=== PATIENT | male | born 1930 | race Caucasian/White ===

== ENCOUNTER 2017-06-08 19:52 | Inpatient (IN) ==
[2017-06-08] MEDS ORDERED: ACETAMINOPHEN 325 MG TABLET PO ONE (20:34)
--- NOTE | 2017-06-08 20:34 | Emergency Department Note ---
Fever HPI - General Chief Complaint: Fever Stated Complaint: weakness, fever Time Seen by Provider: 06/08/17 20:11 Source: patient, EMS Mode of arrival: EMS - History of Present Illness HPI Narrative: Patient presents from assisted living where he lives somewhat independently. Increasing weakness and shortness of breath over the last 24 hours with malaise low-grade fever headache sore throat and myalgias. No clear sick contacts. Generally in good health maintains without oxygen. Summary health history is congestive heart failure, has maintained on a diuretic for the last 11 months without hospitalization. Daughter at the bedside providing history - Related Data Home Medications Medication Instructions Recorded Confirmed multivitamin capsule 1 tab-cap PO QDAY cap 11/16/14 05/28/17 carvedilol 6.25 mg tablet See Label Instructions .ROUTE 01/11/16 05/28/17 .COMPLEX cholecalciferol (vitamin D3) 2,000 2,000 unit PO QDAY tab 07/25/16 05/28/17 unit tablet lactobacillus combination no.9 4 4,000 mmu cells PO QDAY 05/05/17 05/28/17 billion cell capsule loperamide 2 mg capsule 2 mg PO Q2-4H PRN 05/05/17 05/28/17 magnesium hydroxide 400 mg/5 mL 600 mg PO BID PRN 05/05/17 05/28/17 oral suspension spironolactone 25 mg tablet 12.5 mg PO QAM tab 05/05/17 05/28/17 Previous Rx's Medication Instructions Recorded Acetaminophen [Tylenol] 650 mg PO Q4-6HP PRN #0 tab 12/30/15 Docusate Sodium [Colace] 100 mg PO BID cap 12/30/15 fexofenadine 180 mg tablet 180 mg PO QDAY 30 Days #30 tab 12/31/15 leg brace See Dose Instructions .ROUTE 06/19/16 .MEDSUPPLY #2 each wheelchair See Dose Instructions .ROUTE 06/19/16 .MEDSUPPLY #1 each Furosemide [Lasix] 40 mg PO BID #28 tab 07/10/16 warfarin 5 mg tablet See Label Instructions .ROUTE 09/03/16 .COMPLEX #1 tab losartan 100 mg tablet 100 mg PO QDAY 30 Days #30 tab 11/03/16 gabapentin 300 mg capsule 7 cap PO QDAY #210 cap 01/06/17 omeprazole 20 mg capsule,delayed 20 mg PO QAM #30 cap 01/15/17 release potassium chloride ER 10 mEq 20 meq PO QDAY #60 tab 03/10/17 tablet,extended release allopurinol 100 mg tablet 200 mg PO QDAY #60 tab MDD 200mg 05/07/17 finasteride 5 mg tablet 5 mg PO QDAY #90 tab 06/04/17 Allergies Allergy/AdvReac Type Severity Reaction Status Date / Time prednisone Allergy Unknown Unknown Verified 06/08/17 20:00 tramadol AdvReac Intermediate Hallucinati Verified 06/08/17 20:00 ng trazodone AdvReac Intermediate Hallucinati Verified 06/08/17 20:00 ng codeine AdvReac Mild Nausea Verified 06/08/17 20:00 loratadine [From Claritin] AdvReac Mild Hallucinati Verified 06/08/17 20:00 ng quinidine gluconate Allergy Unknown Unknown Uncoded 05/12/17 16:06 Review of Systems All systems ED: reviewed and negative except as stated. Fever PMH - Past Medical History Attestation: Yes: The following information was validated with the patient. Medical history: Reports: arthritis, atrial fibrillation, CHF, coronary artery disease, GERD, hypertension, valvular heart disease, other (Bladder cancer, Bursitis, cardiomyopathy, retinal hemorrhage, peripheral neuropathy, gout, macular degeneration, bph, vitiligo) Surgical history ED: Reports: non-contributory Family history: Reports: non-contributory - Social History smoking status: Former smoker Alcohol use: Reports: None Drug use: Reports: none Physical Exam Limitations: altered mental status, other (Weak) General appearance: in no apparent distress, malaise, other (Very advanced age) Head: atraumatic, normocephalic Eye: Present: normal appearance ENT: normal exam, mucous membranes moist Neck: Present: normal inspection Chest: Present: normal inspection, symmetric chest wall rise Respiratory: Present: other (Course breath sounds). Absent: respiratory distress Cardiovascular: Present: regular rate, normal rhythm Abdominal: Present: soft. Absent: tenderness Extremities: Present: normal inspection. Absent: pedal edema Back: Present: normal inspection Neurological: Present: other (Fatigued appearing) Psychiatric: Present: normal affect Skin: Present: warm, other (Flushed) Course Vital Signs Temperature 100.4 F H 06/08/17 19:53 Pulse Rate 112 H 06/08/17 19:53 Respiratory Rate 16 06/08/17 19:53 Blood Pressure 120/71 06/08/17 19:53 Pulse Oximetry (%) 89 L 06/08/17 19:53 Temperature 100.4 F H 06/08/17 19:53 Pulse Rate 82 06/08/17 21:33 Respiratory Rate 16 06/08/17 19:53 Blood Pressure 99/59 06/08/17 21:31 Pulse Oximetry (%) 97 06/08/17 21:33 Fever - Lab Data Lab results reviewed: Yes I reviewed the patient's lab results. Result diagrams: 06/08/17 20:38 06/08/17 20:38 Lab Results 06/08/17 06/08/17 06/08/17 Range/Units 20:27 20:38 20:38 WBC 12.4 H (4.5-11.0) K/mcL RBC 3.78 L (4.50-5.90) M/mcL Hgb 12.4 L (13.5-16.5) g/dL Hct 37.9 L (41.0-55.0) % MCV 100.2 H (80.0-100.0) fL MCH 32.7 (26.0-34.0) pg MCHC 32.7 (31.0-36.0) g/dL RDW 18.0 H (11.5-14.5) % Plt Count 173 (140-440) K/mcL MPV 9.7 (7.4-10.4) fL Gran % 85.7 H (38.0-78.0) % Lymph % (Auto) 5.2 L (15.5-49.0) % [place] % (Auto) 5.5 (1.0-12.0) % Eos % (Auto) 3.6 (0.0-7.0) % Baso % (Auto) 0 (0.0-2.0) % Gran # 10.7 H (1.8-8.0) K/mcL Lymph # (Auto) 0.7 L (1.5-4.8) K/mcL [place] # (Auto) 0.7 (0.1-0.9) K/mcL Eos # (Auto) 0.4 (0.0-0.7) K/mcL Baso # (Auto) 0 (0.0-0.3) K/mcL VBG Lactic Acid 1.0 (0.5-2.2) mmol/L Sodium 138 (133-145) mmol/L Potassium 4.5 (3.3-5.1) mmol/L Chloride 99 (96-108) mmol/L Carbon Dioxide 26 (22-30) mmol/L Anion Gap 13.0 (8-16) BUN 43 H (8-23) mg/dl Creatinine 1.4 H (0.7-1.2) mg/dl GFR Calculation 45 Glucose 129 H (70-105) mg/dL Calcium 9.8 (8.6-10.4) mg/dl Total Bilirubin 1.2 H (0.0-1.0) mg/dL AST 19 (0-37) U/l ALT 17 (0-40) U/l Alkaline Phosphatase 98 (39-117) U/L Total Protein 7.2 (5.9-8.4) gm/dL Albumin 4.0 (3.2-5.2) gm/dL Globulin 3.2 (2.2-3.7) gm/dL Albumin/Globulin Ratio 1.3 (1.0-2.3) Procalcitonin (<0.10) ng/mL 06/08/17 Range/Units 20:38 WBC (4.5-11.0) K/mcL RBC (4.50-5.90) M/mcL Hgb (13.5-16.5) g/dL Hct (41.0-55.0) % MCV (80.0-100.0) fL MCH (26.0-34.0) pg MCHC (31.0-36.0) g/dL RDW (11.5-14.5) % Plt Count (140-440) K/mcL MPV (7.4-10.4) fL Gran % (38.0-78.0) % Lymph % (Auto) (15.5-49.0) % [place] % (Auto) (1.0-12.0) % Eos % (Auto) (0.0-7.0) % Baso % (Auto) (0.0-2.0) % Gran # (1.8-8.0) K/mcL Lymph # (Auto) (1.5-4.8) K/mcL [place] # (Auto) (0.1-0.9) K/mcL Eos # (Auto) (0.0-0.7) K/mcL Baso # (Auto) (0.0-0.3) K/mcL VBG Lactic Acid (0.5-2.2) mmol/L Sodium (133-145) mmol/L Potassium (3.3-5.1) mmol/L Chloride (96-108) mmol/L Carbon Dioxide (22-30) mmol/L Anion Gap (8-16) BUN (8-23) mg/dl Creatinine (0.7-1.2) mg/dl GFR Calculation Glucose (70-105) mg/dL Calcium (8.6-10.4) mg/dl Total Bilirubin (0.0-1.0) mg/dL AST (0-37) U/l ALT (0-40) U/l Alkaline Phosphatase (39-117) U/L Total Protein (5.9-8.4) gm/dL Albumin (3.2-5.2) gm/dL Globulin (2.2-3.7) gm/dL Albumin/Globulin Ratio (1.0-2.3) Procalcitonin 0.20 (<0.10) ng/mL - Radiology Data Radiology results reviewed: Yes I reviewed the patient's radiology results. Blunting left lateral cardiac silhouette Disposition Pt seen by LAP CUTTER/PA only: No Clinical Impression: Hypoxia Left lower lobe pneumonia Qualifiers: Aspiration pneumonia type: unspecified Summary: Immediate interventions, DNR status Admit to Dr. Gonazlez Disposition: Xfer As Inpt ([facility]) Condition: Fair
[2017-06-08 21:18] LABS: Basophils # (Auto) 0 K/mcL (0.0-0.3); Basophils % (Auto) 0 % (0.0-2.0); Eosinophils # (Auto) 0.4 K/mcL (0.0-0.7); Eosinophils % (Auto) 3.6 % (0.0-7.0); Granulocytes % (Auto) 85.7 % (38.0-78.0); Lymphocytes # (Auto) 0.7 K/mcL (1.5-4.8); Lymphocytes % (Auto) 5.2 % (15.5-49.0); Mean Cell Volume 100.2 fL (80.0-100.0); Mean Corpuscular HGB Conc 32.7 g/dL (31.0-36.0); Mean Corpuscular Hemoglobin 32.7 pg (26.0-34.0); Monocytes # (Auto) 0.7 K/mcL (0.1-0.9); Monocytes % (Auto) 5.5 % (1.0-12.0); Platelet Count 173 K/mcL (140-440); RBC 3.78 M/mcL (4.50-5.90)
[2017-06-08 21:36] LABS: ALT/SGPT 17 U/l (0-40); Albumin/Globulin Ratio 1.3 (1.0-2.3); Alkaline Phosphatase 98 U/L (39-117); Blood Urea Nitrogen 43 mg/dl (8-23)
[2017-06-08] MEDS ORDERED: cefTRIAXone 1 GM VIAL IV ONE (21:57)
[2017-06-08] MEDS ORDERED: AZITHROMYCIN 250 MG TABLET PO ONE (21:57)
[2017-06-08] MEDS ORDERED: AZITHROMYCIN 500 MG in DEXTROSE 5% IN WATER 250 ML IV ONE (22:00)
--- NOTE | 2017-06-08 23:11 | Internal Med History&Physical ---
Medical - H&P: HPI Patient information: Note initiated : 06/08/17 at 10:59 pm Service Date, if different from initiated Date: [] Patient: Silvio Wallace 86 y/o M admitted on for weakness, fever. Chief Complaint: [] History of present illness: Mr. Wallace is a 86 year old Mal;e with multiple medical issues, living in [facility] facility, presents to the er with complaints of not feeling well , weakness, fever, chills cough, runny nose x 1 day. The daugther was at the bedside, the patient was visited by the daugther, yesterday and she felt that he was doing ok, and had no symptoms. Today she noticed that he has not been feeling well, there is increased weakness, the patient also complains of runny nose and cough, with expectoration, (unable to give me more details) poor history provider. The patient also has increased difficulity in getting out of bed. His daugther therefore brought him to the ER for further evaluation. In the ER the patient was noted to be febrile. His Chest x ray showed possible left basilar pna, he had increased oxygen needs, his wbc was elevated at 12K, The patient was therefore admitted to the hospital for further management. All systems: reviewed and no additional remarkable complaints except as stated ( as pe HPI) Medical - H&P: PMH Medical history: Medical History (Last Reviewed 05/12/17 @ 16:08 by Bárbara Carlton RN) Bursitis (Acute) Degenerative joint disease (Acute) Upper respiratory infection (Acute) Syncope (Acute) Fever of unknown origin (Acute) Fever (Acute) Severe sepsis with acute organ dysfunction (Acute) Sprain of right hip (Acute) Pneumonia (Acute) Altered mental state (Acute) Gastroenteritis and colitis, viral (Acute) Elevated liver enzymes (Acute) Community acquired pneumonia (Acute) Aspiration pneumonitis (Acute) Elbow contusion (Acute) CHF exacerbation (Acute) Closed right hip fracture (Acute) Fever of unknown origin (Acute) Left knee pain (Acute) Cardiomyopathy (Chronic) Encounter for Health Maintenance Examination in Adult (Chronic) Hypercalcemia (Chronic) Vertigo (Acute) Bladder trabeculation (Acute) Retinal hemorrhage (Acute) Pleural effusion (Acute) Peripheral neuropathy (Chronic) Obstructive uropathy (Chronic) Mitral valve regurgitation (Chronic) Macular degeneration (Chronic) Low back pain (Chronic) Joint effusion of lower extremity (Acute) Ischemic cardiomyopathy (Chronic) Hypertension (Chronic) Head injury (Acute) Gout (Chronic) Fall (Acute) Eye trauma (Acute) Exudative senile macular degeneration of retina (Acute) Erectile dysfunction (Chronic 05/05/14) Epistaxis (Acute) Dysphagia (Acute) Situational depression (Chronic) DJD (degenerative joint disease) (Acute) Degenerative arthritis (Chronic) CHF (congestive heart failure) (Chronic) History of colonic polyps (Acute) Chondrocalcinosis (Acute) Cardiomegaly (Acute) Bloating (Acute) Blindness, legal (Chronic) Bladder tumor (Chronic) Atrial fibrillation (Chronic) Surgical history: Past Surgical History (Last Reviewed 05/12/17 @ 16:08 by Bárbara Carlton RN) S/P TURP (Acute) H/O cystoscopy (Acute) H/O colonoscopy (Acute 07/23/09) History of appendectomy (Acute) Pertinent family history: Family History (Last Reviewed 05/12/17 @ 16:08 by Bárbara Carlton RN) Mother Malignant neoplasm of brain Malignant Neoplasm of Thyroid Gland Unknown Diabetes mellitus Father Cardiac disease Medical - H&P: Meds Home Medications Medication Instructions Recorded Confirmed Type multivitamin capsule 1 tab-cap PO QDAY cap 11/16/14 05/28/17 History Acetaminophen [Tylenol] 650 mg PO Q4-6HP PRN #0 tab 12/30/15 05/28/17 Rx Docusate Sodium [Colace] 100 mg PO BID cap 12/30/15 05/28/17 Rx fexofenadine 180 mg tablet 180 mg PO QDAY 30 Days #30 tab 12/31/15 05/28/17 Rx carvedilol 6.25 mg tablet See Label Instructions .ROUTE 01/11/16 05/28/17 History .COMPLEX leg brace See Dose Instructions .ROUTE 06/19/16 05/28/17 Rx .MEDSUPPLY #2 each wheelchair See Dose Instructions .ROUTE 06/19/16 05/28/17 Rx .MEDSUPPLY #1 each Furosemide [Lasix] 40 mg PO BID #28 tab 07/10/16 05/28/17 Rx cholecalciferol (vitamin D3) 2,000 2,000 unit PO QDAY tab 07/25/16 05/28/17 History unit tablet warfarin 5 mg tablet See Label Instructions .ROUTE 09/03/16 05/28/17 Rx .COMPLEX #1 tab losartan 100 mg tablet 100 mg PO QDAY 30 Days #30 tab 11/03/16 05/28/17 Rx gabapentin 300 mg capsule 7 cap PO QDAY #210 cap 01/06/17 05/28/17 Rx omeprazole 20 mg capsule,delayed 20 mg PO QAM #30 cap 01/15/17 05/28/17 Rx release potassium chloride ER 10 mEq 20 meq PO QDAY #60 tab 03/10/17 05/28/17 Rx tablet,extended release lactobacillus combination no.9 4 4,000 mmu cells PO QDAY 05/05/17 05/28/17 History billion cell capsule loperamide 2 mg capsule 2 mg PO Q2-4H PRN 05/05/17 05/28/17 History magnesium hydroxide 400 mg/5 mL 600 mg PO BID PRN 05/05/17 05/28/17 History oral suspension spironolactone 25 mg tablet 12.5 mg PO QAM tab 05/05/17 05/28/17 History allopurinol 100 mg tablet 200 mg PO QDAY #60 tab MDD 200mg 05/07/17 05/28/17 Rx finasteride 5 mg tablet 5 mg PO QDAY #90 tab 06/04/17 Rx Allergies Allergy/AdvReac Type Severity Reaction Status Date / Time prednisone Allergy Unknown Unknown Verified 06/08/17 20:00 tramadol AdvReac Intermediate Hallucinati Verified 06/08/17 20:00 ng trazodone AdvReac Intermediate Hallucinati Verified 06/08/17 20:00 ng codeine AdvReac Mild Nausea Verified 06/08/17 20:00 loratadine [From Claritin] AdvReac Mild Hallucinati Verified 06/08/17 20:00 ng quinidine gluconate Allergy Unknown Unknown Uncoded 05/12/17 16:06 Medical - H&P: Exam - Constitutional Vitals: Temp Pulse Resp BP Pulse Ox 100.4 F H 82 16 99/59 97 06/08/17 19:53 06/08/17 21:33 06/08/17 19:53 06/08/17 21:31 06/08/17 21:33 Exam: GENERAL: The patient is a well-developed, well-nourished in no apparent distress. Is alert and oriented x3. VITAL SIGNS: Reviewed and as noted elsewhere. HEENT: Head is normocephalic and atraumatic. Extraocular muscles are intact. Pupils are equal, round, and reactive to light. Nares appeared normal. Mouth appears any without lesions. Mucous membranes are dry. NECK: Normal to inspection, Supple, No lymphadenopathy or thyromegaly. LUNGS: Air entry equal on both sides, no wheezing, crackles or rhonchi noted. No accessory muscles of respiration HEART: Regular rate irregular rhythm S1 and S2 heard, no Gallop, S3 or Rub Noted , No Gross murmur heard. ABDOMEN: Soft, nontender, and nondistended. Positive bowel sounds. No hepatosplenomegaly was noted. EXTREMITIES: No cyanosis, clubbing, rash, lesions or edema. NEUROLOGIC: Cranial nerves II through XII are grossly intact. Motor and Sensory System Grossly Intact PSYCHIATRIC: Normal affect, Normal Mood. Appropriate Behavior. SKIN: No ulceration or wounds noted, No jaundice, No rash noted. Medical - H&P: Reslt - Labs CBC & Chem 7: 06/08/17 20:38 06/08/17 20:38 Labs: Short CBC 06/08/17 Range/Units 20:38 WBC 12.4 H (4.5-11.0) K/mcL Hgb 12.4 L (13.5-16.5) g/dL Hct 37.9 L (41.0-55.0) % Plt Count 173 (140-440) K/mcL BMP 06/08/17 20:38 Sodium 138 Potassium 4.5 Chloride 99 Carbon Dioxide 26 BUN 43 H Creatinine 1.4 H Glucose 129 H Calcium 9.8 Liver Function 06/08/17 Range/Units 20:38 Total Bilirubin 1.2 H (0.0-1.0) mg/dL AST 19 (0-37) U/l ALT 17 (0-40) U/l Alkaline Phosphatase 98 (39-117) U/L Albumin 4.0 (3.2-5.2) gm/dL Medical - H&P: A/P - Narrative A/P Narrative: A/P Sepsis Pneumonia CHF Afib on anticoagulation CKD DJD Plan Admit to tele IV antibiotics for now rocephin and zithromax, ackowledge that flu test is neg, but given high prevelance, start on tamiflu, Resume home meds when verifed hold IVF for now, Pt not in overt fluid overload clinically, X ray does show pulm congestion. Plan to monitor closely tanika labs Pain management for DJD DVT on coumadin, INR was therapeutic at last [facility], check again. if low start on hep sq Full code for now High risk for fall High risk for delirium. Social History - Social History housing: assisted living facility marital status: long term: Yes (Resides on the assisted living side [facility]) occupational status: retired - Tobacco smoking status: Former smoker - Alcohol alcohol intake frequency: former alcohol drinker - Substance use substance use type: does not use
[2017-06-08] MEDS ORDERED: OSELTAMIVIR PHOSPHATE 75 MG CAPSULE PO ONE (23:33)
[2017-06-08] MEDS ORDERED: AZITHROMYCIN 500 MG VIAL IV ONE (23:34)
[2017-06-09] MEDS ORDERED: cefTRIAXone 1 GM in DEXTROSE 5% IN WATER 50 ML IV SCH
[2017-06-09] MEDS ORDERED: ONDANSETRON 4 MG/2 ML VIAL IV PRN
[2017-06-09] MEDS ORDERED: MAGNESIUM HYDROXIDE 30 ML ORAL.SUSP PO PRN
[2017-06-09] MEDS ORDERED: NALOXONE HCL 0.4 MG/ML VIAL IV PRN
[2017-06-09] MEDS ORDERED: HYDROcodone/APAP 5/325MG TABLET PO PRN
[2017-06-09] MEDS: OSELTAMIVIR PHOSPHATE 75 MG CAPSULE PO SCH ×3 (00:25→20:36)
[2017-06-09] MEDS ORDERED: cefTRIAXone 1 GM VIAL ONE (01:36)
[2017-06-09] MEDS: ACETAMINOPHEN 325 MG TABLET PO PRN ×2 (04:26→20:37)
--- NOTE | 2017-06-09 07:13 | XRay Report ---
CLINICAL INFORMATION: Fever and cough COMPARISON: 07/25/2016 FINDINGS: Marked cardiomegaly is unchanged. Mediastinum is unremarkable. There is slight redistribution of upper lobe pulmonary vasculature - unchanged. No edema. There is a possible developing left basilar infiltrate. Minor right basilar scarring noted. Chronic bilateral rotator cuff impingement changes again noted IMPRESSION: Marked cardiomegaly stable. Unchanged pulmonary vascular redistribution suggesting chronic pulmonary venous hypertension. Possible developing left basilar infiltrate. Suggest two view upright chest x-ray in one to two days there is clinical support for pneumonia Interpreted and Authenticated by: Bar Luna 06/09/17
[2017-06-09 07:19] LABS: Basophils # (Auto) 0 K/mcL (0.0-0.3); Basophils % (Auto) 0 % (0.0-2.0); Eosinophils # (Auto) 0.3 K/mcL (0.0-0.7); Eosinophils % (Auto) 2.8 % (0.0-7.0); Granulocytes % (Auto) 76.6 % (38.0-78.0); Lymphocytes # (Auto) 0.8 K/mcL (1.5-4.8); Lymphocytes % (Auto) 7.6 % (15.5-49.0); Mean Cell Volume 100.1 fL (80.0-100.0); Monocytes # (Auto) 1.4 K/mcL (0.1-0.9); Platelet Count 159 K/mcL (140-440); RBC 3.53 M/mcL (4.50-5.90); Red Cell Distribution Width 17.6 % (11.5-14.5)
[2017-06-09 08:22] LABS: ALT/SGPT 14 U/l (0-40); Albumin 3.4 gm/dL (3.2-5.2); Albumin/Globulin Ratio 1.1 (1.0-2.3); Alkaline Phosphatase 86 U/L (39-117); Bilirubin,Direct 0.3 mg/dL (0.0-0.3); Blood Urea Nitrogen 42 mg/dl (8-23); Gamma Glutamyl Transpeptidase 70 U/L (8-61); Uric Acid 5.6 mg/dL (2.5-8.0)
--- NOTE | 2017-06-09 11:12 | Internal Med Progress Note ---
Medical - PN: Subj Patient information: Note initiated : 06/09/17 at 11:09 am Service Date, if different from initiated Date: [] Patient: Silvio Wallace 86 y/o M admitted on 06/08/17 for weakness, fever. Chief Complaint: [] Interval history: Mr. Wallace is a 86 year old [place];e with multiple medical issues, living in the [facility] facility, presents to the er with complaints of not feeling well , weakness, fever, chills cough, runny nose x 1 day. The daugther was at the bedside, the patient was visited by the daugther, yesterday and she felt that he was doing ok, and had no symptoms. Today she noticed that he has not been feeling well, there is increased weakness, the patient also complains of runny nose and cough, with expectoration, (unable to give me more details) poor history provider. The patient also has increased difficulity in getting out of bed. His daugther therefore brought him to the ER for further evaluation. In the ER the patient was noted to be febrile. His Chest x ray showed possible left basilar pna, he had increased oxygen needs, his wbc was elevated at 12K, The patient was therefore admitted to the hospital for further management. Jun 09 Patient seen examined no acute overnight events, labs improved, slept ok feels better. Pertinent ROS: Denies headache, dizziness Denies chest pain, palpitations Denies cough or shortness of breath Denies abdominal pain, nausea or vomiting. - Constitutional Vitals: Vital Signs Temp Pulse Resp BP Pulse Ox 100.0 F H 79 18 106/65 92 06/09/17 08:00 06/09/17 08:00 06/09/17 08:00 06/09/17 08:00 06/09/17 08:00 Period Temp Pulse Resp BP Sys/Nichole Pulse Ox Last 24 Hr 94.4 F-100.4 F 39-112 16-18 89-138/42-83 89-97 Intake and Output 06/08/17 06/09/17 06/09/17 21:59 05:59 13:59 Intake Total 430 / 430 Output Total Balance 429 / 429 Weight 204 lb 199 lb 4 oz Intake & Output: Intake & Output 06/08/17 06/09/17 06/09/17 21:59 05:59 13:59 Intake Total 430 / 430 Output Total Balance 429 / 429 Weight 204 lb 199 lb 4 oz Intake: IV 250 / 250 Zithromax 500 mg In Dextrose 5% 250 / 250 in Water 250 ml @ 250 mls/hr IV ONCE ONE Rx#:[id number] Oral 180 / 180 Output: # of times incontinent of urine Other: # Voids 0 # Bowel Movements 0 Exam: Constitutional; Afebrile, cooperative, alert, not in distress. Eyes- No icterus, , No periorbital swelling Ears- Ext ear normal, hearing hard to conversation. Neck- Midline trachea, supple Respiratory system: Air Entry equal on both sides, No crackles or wheezing, no rhonchi. CVS- Rate rhythm regular, S1,S2 heard, no gallop, no rub. Abdomen- Soft nontender abdomen, no organomegaly, no tenderness, no guarding or rigidity, TELEVISION ANNOUNCER- AOOx3, moving all extremities, no gross focal deficit noted. Medical - PN: Obj Da - Labs CBC & Chem 7: 06/09/17 06:19 06/09/17 06:19 Labs: Abnormal Lab Results 06/09/17 06/09/17 06/09/17 06:19 06:19 06:19 WBC RBC 3.53 L Hgb 11.6 L Hct 35.3 L MCV 100.1 H RDW 17.6 H Gran % Lymph % (Auto) 7.6 L [place] % (Auto) 13.0 H Gran # 8.1 H Lymph # (Auto) 0.8 L [place] # (Auto) 1.4 H PT 24.5 H INR 2.1 H BUN 42 H Creatinine 1.4 H Glucose Total Bilirubin 1.1 H GGT 70 H NT-Pro-B Natriuret Pep 06/08/17 06/08/17 06/08/17 20:38 20:38 20:27 WBC 12.4 H RBC 3.78 L Hgb 12.4 L Hct 37.9 L MCV 100.2 H RDW 18.0 H Gran % 85.7 H Lymph % (Auto) 5.2 L [place] % (Auto) Gran # 10.7 H Lymph # (Auto) 0.7 L [place] # (Auto) PT INR BUN 43 H Creatinine 1.4 H Glucose 129 H Total Bilirubin 1.2 H GGT NT-Pro-B Natriuret Pep 3458.0 H Meds: Medications Acetaminophen (Tylenol) 650 mg PO Q6HP PRN PRN Reason: PAIN/FEVER > 101 Last Admin: 06/09/17 04:26 Dose: 650 mg Ceftriaxone Sodium (Rocephin) 1 gm IV DAILY [facility] Azithromycin 250 mg/ Dextrose 250 mls @ 250 mls/hr IV DAILY [facility] Stop: 06/12/17 09:59 Magnesium Hydroxide (Milk Of Magnesia) 30 ml PO DAILYP PRN PRN Reason: Constipation Naloxone HCl (Narcan) 0.1 mg IV Q2MIN PRN PRN Reason: Opiate Reversal Ondansetron HCl (Zofran) 4 mg IV Q4HP PRN PRN Reason: Nausea And Vomiting Oseltamivir Phosphate (Tamiflu) 75 mg PO BID [facility] Stop: 06/13/17 09:01 Last Admin: 06/09/17 09:10 Dose: 75 mg Warfarin Sodium (Coumadin Per Pharmacy) 1 order PO UD [facility] Medical - PN: A/P - Time Spent With Patient Total time spent is greater than 50% in coordination of care (as documented) at patient's floor/unit and/or counseling patient: - Narrative A/P Narrative: A/P Sepsis: wbc improved, bp stable, lactate normal, pt clinically improving Pneumonia: On antibiotics, rocephin and zithromax, anticipate switch to oral at discharge, also on tamiflu CHF: h/o chf, not volume overloaded at this time, judicious use of fluids. Afib on anticoagulation: INR 2.1, at goal, HR stable. CKD: Creat stable. DJD: Prn pain meds, no complaints DVT on coumadin High risk of falls, on OT/PT?St rehab High risk for delirum Medical - PN: Qual - VTE Deep Vein Thrombosis/Pulmonary Embolism Present on Admission: No
[2017-06-09] MEDS: AZITHROMYCIN 250 MG in DEXTROSE 5% IN WATER 250 ML IV SCH (13:27)
[2017-06-09] MEDS: cefTRIAXone 1 GM VIAL IV SCH (16:54)
[2017-06-10] MEDS: ACETAMINOPHEN 325 MG TABLET PO PRN ×2 (04:49→10:44)
[2017-06-10 05:52] LABS: Basophils # (Auto) 0 K/mcL (0.0-0.3); Basophils % (Auto) 0.2 % (0.0-2.0); Eosinophils # (Auto) 0.2 K/mcL (0.0-0.7); Eosinophils % (Auto) 1.9 % (0.0-7.0); Granulocytes % (Auto) 77.6 % (38.0-78.0); Lymphocytes % (Auto) 9.6 % (15.5-49.0); Mean Cell Volume 100.8 fL (80.0-100.0); Mean Corpuscular HGB Conc 32.9 g/dL (31.0-36.0); Mean Corpuscular Hemoglobin 33.2 pg (26.0-34.0); Monocytes # (Auto) 1.1 K/mcL (0.1-0.9); Monocytes % (Auto) 10.7 % (1.0-12.0); Platelet Count 169 K/mcL (140-440); RBC 3.81 M/mcL (4.50-5.90); Red Cell Distribution Width 17.7 % (11.5-14.5)
[2017-06-10 06:06] LABS: ALT/SGPT 16 U/l (0-40); Albumin 3.7 gm/dL (3.2-5.2); Albumin/Globulin Ratio 1.1 (1.0-2.3); Alkaline Phosphatase 90 U/L (39-117); Bilirubin,Direct 0.4 mg/dL (0.0-0.3); Blood Urea Nitrogen 32 mg/dl (8-23); Gamma Glutamyl Transpeptidase 74 U/L (8-61); Uric Acid 5.6 mg/dL (2.5-8.0)
[2017-06-10] MEDS: OSELTAMIVIR PHOSPHATE 75 MG CAPSULE PO SCH (09:02)
[2017-06-10] MEDS: cefTRIAXone 1 GM VIAL IV SCH (09:02)
[2017-06-10] MEDS: AZITHROMYCIN 250 MG in DEXTROSE 5% IN WATER 250 ML IV SCH (09:03)
--- NOTE | 2017-06-10 10:05 | Discharge Summary ---
Medical - DS: Prov Patient information: Note initiated : 06/10/17 at 9:58 am Service Date, if different from initiated Date: [] Patient: Silvio Wallace 86 y/o M admitted on 06/08/17 for Weakness, Fever/ Pneumonia, Sepsis. Chief Complaint: [] Date of admission: 06/08/17 23:40 Discharge date: 06/10/17 Admitting clinician: Andres Gonzalez Consults: 06/08/17 21:59 Consult to Physician [CONS] Stat Comment: Consulting Provider: Andres Gonzalez Reason For Exam: Physician to Consult Discharging clinician: Andres Gonzalez Medical - DS: Meds - Discharge Medications Prescriptions: Azithromycin [Zithromax] 250 mg PO DAILY #3 tab Cefuroxime [Ceftin] 500 mg PO Q12 #10 tab Oseltamivir Phosphate [Tamiflu] 75 mg PO BID #8 cap Active and Home Medications: Home Medications Docusate Sodium [Colace] 100 mg PO BID cap 12/30/15 [Rx Confirmed 06/09/17 Last Taken 06/08/17 18:00] fexofenadine 180 mg tablet 180 mg PO QDAY 30 Days #30 tab 12/31/15 [Rx Confirmed 06/09/17 Last Taken 06/08/17] carvedilol 6.25 mg tablet See Label Instructions PO BID 01/11/16 [History Confirmed 06/09/17 Last Taken 06/08/17 15:00 6.25] Furosemide [Lasix] 40 mg PO BID #28 tab 07/10/16 [Rx Confirmed 06/09/17 Last Taken 06/08/17 14:00] cholecalciferol (vitamin D3) 2,000 unit tablet 2,000 unit PO QDAY tab 07/25/16 [History Confirmed 06/09/17 Last Taken 06/08/17 07:00] losartan 100 mg tablet 100 mg PO QDAY 30 Days #30 tab 11/03/16 [Rx Confirmed 10/19 Last Taken 06/08/17] omeprazole 20 mg capsule,delayed release 20 mg PO QAM #30 cap 01/15/17 [Rx Confirmed 06/09/17 Last Taken 06/08/17] lactobacillus combination no.9 4 billion cell capsule 4,000 mmu cells PO QDAY [History Confirmed 06/09/17 Last Taken 06/08/17] loperamide 2 mg capsule 2 mg PO Q2-4H PRN MDD 8 05/05/17 [History Confirmed 10/19 Last Taken Unknown] magnesium hydroxide 400 mg/5 mL oral suspension 600 mg PO DAILYP PRN 05/05/17 [ History Confirmed 06/09/17 Last Taken Unknown] spironolactone 25 mg tablet 12.5 mg PO QAM tab 05/05/17 [History Confirmed 10/19 Last Taken 06/08/17 07:00] allopurinol 100 mg tablet 200 mg PO QDAY #60 tab MDD 200mg 05/07/17 [Rx Confirmed 06/09/17 Last Taken 06/08/17] finasteride 5 mg tablet 5 mg PO QDAY #90 tab 06/04/17 [Rx Confirmed 06/09/17 Last Taken 06/08/17] Acetaminophen [Tylenol] 2 tab PO Q4-6HP PRN 06/09/17 [History Confirmed Last Taken 06/07/17] Acetaminophen [Tylenol] 650 mg PO BID 06/09/17 [History Confirmed 06/09/17 Last Taken 06/08/17 18:00] Gabapentin [Neurontin] 2 - 3 cap PO TID 06/09/17 [History Confirmed 06/09/17 Last Taken 06/08/17 900mg] Lactobac No.41/Bifidobact No.7 [Probiotic-10 3 Billion Cell Cp] 1 cap PO QPM 10/19 [History Confirmed 06/09/17 Last Taken 06/08/17 1500] Leg Brace [Ankle Brace] 0 unit .ROUTE .MEDSUPPLY 06/09/17 [History Confirmed 10/19 Last Taken Unknown] Multivit-Min/FA/Lycopen/Lutein [Senior Tabs] 1 each PO DAILY 06/09/17 [History Confirmed 06/09/17 Last Taken Unknown] Potassium Chloride [K-Tab ER] 20 meq PO QAM 06/09/17 [History Confirmed Last Taken 06/08/17] Warfarin [Coumadin] 6 mg PO DAILY 06/09/17 [History Confirmed 06/09/17 Last Taken 06/05/17 14:00 6 mg] Warfarin [Coumadin] See Label Instructions PO DAILY 06/09/17 [History Confirmed 06/09/17 Last Taken 06/08/17 14:00 5 mg] Wheelchair 1 unit .ROUTE .MEDSUPPLY 06/09/17 [History Confirmed 06/09/17 Last Taken Unknown] Medical - DS: Hosp Hospital course: Mr. Wallace is a 86 year old [place] with multiple medical issues, living in the assisted living facility, presents to the er with complaints of not feeling well , weakness, fever, chills cough, runny nose x 1 day. The daughter was at the bedside, the patient was visited by the daughter, yesterday and she felt that he was doing ok, and had no symptoms. Today she noticed that he has not been feeling well, there is increased weakness, the patient also complains of runny nose and cough, with expectoration, (unable to give me more details) poor history provider. The patient also has increased difficulty in getting out of bed. In the ER the patient was noted to be febrile. His Chest x ray showed possible left basilar pna, he had increased oxygen needs, his wbc was elevated at 12K, The patient was therefore admitted to the hospital for further management. The patient was treated with Po tamifu, IV rocephin and zithromax for possible community acquired pneumonia, cxr showed possible left basilar pna, the patient responded to treatment very well, his leucocytosis improved and his strength improved. The patient Flu test was negative, and tamiflu was given just because of high prevelance of the disease. At the time of discharge the patient is stable, back to baseline as per family, he will be discharged back to assisted living side, no changes in his home medications have been done. He will take tamiflu, zithromax and cefuooxine for a short duration to complete the course of antibiotics. Discharge diagnosis: Community Acquired Pneumonia - Time Spent with Patient Total time spent providing and/or coordinating discharge services: Less than 30 minutes Medical - DS: Exam - Constitutional Vitals: Vital Signs Temp Pulse Resp BP Pulse Ox 06/10/17 08:00 94 06/10/17 06:59 98.9 F 83 16 121/81 94 06/10/17 03:57 98.4 F 86 18 118/67 97 06/09/17 23:47 99.4 F H 83 16 118/84 94 06/09/17 20:00 99.8 F H 87 18 130/90 90 06/09/17 16:00 100.4 F H 82 20 120/75 98 06/09/17 12:00 98 F 96 H 18 110/76 90 Intake and Output 06/09/17 06/10/17 06/10/17 21:59 05:59 13:59 Intake Total 450 / 450 120 / 120 300 / 300 Output Total / Balance 449 / 449 118 / 118 299 / 299 Intake: IV 250 / 250 Zithromax 250 mg In Dextrose 5% 250 / 250 in Water 250 ml @ 250 mls/hr IV DAILY [facility] Rx#:[id number] Oral 200 / 200 120 / 120 300 / 300 Output: # of times incontinent of urine Other: Meal Breakfast Percent of Meal Consumed 100% # Bowel Movements 1 0 Weight 199 lb Additional comments: Constitutional; Afebrile, cooperative, alert, not in distress. Eyes- No icterus, , No periorbital swelling Ears- Ext ear normal, hearing normal to conversation. Neck- Midline trachea, supple Respiratory system: Air Entry equal on both sides, No crackles or wheezing, no rhonchi. CVS- Rate rhythm irregular, S1,S2 heard, no gallop, no rub. Abdomen- Soft nontender abdomen, no organomegaly, no tenderness, no guarding or rigidity, SEISMIC PLOTTER- AOOx2, moving all extremities, no gross focal deficit noted. Medical - DS: Data Labs on day of discharge: Labs from last 24 hours 06/10/17 06/10/17 06/10/17 03:40 03:40 03:40 WBC 10.5 RBC 3.81 L Hgb 12.6 L Hct 38.4 L MCV 100.8 H MCH 33.2 MCHC 32.9 RDW 17.7 H Plt Count 169 MPV 10.3 Gran % 77.6 Lymph % (Auto) 9.6 L [place] % (Auto) 10.7 Eos % (Auto) 1.9 Baso % (Auto) 0.2 Gran # 8.2 H Lymph # (Auto) 1.0 L [place] # (Auto) 1.1 H Eos # (Auto) 0.2 Baso # (Auto) 0 PT 22.1 H INR 1.9 H Sodium 140 Potassium 4.5 Chloride 101 Carbon Dioxide 25 Anion Gap 14.0 BUN 32 H Creatinine 1.0 GFR Calculation 68 Glucose 93 Uric Acid 5.6 Calcium 10.0 Phosphorus 3.1 Magnesium 2.3 Total Bilirubin 1.6 H Direct Bilirubin 0.4 H GGT 74 H AST 24 ALT 16 Alkaline Phosphatase 90 Lactate Dehydrogenase 190 Total Protein 7.0 Albumin 3.7 Globulin 3.3 Albumin/Globulin Ratio 1.1 Triglycerides 48 Preliminary micro results at discharge 06/08/17 20:27 Blood Culture - Preliminary Blood 06/08/17 20:34 Blood Culture - Preliminary Blood Medical - DS: A/P - Patient/Caregiver Discharge Instructions Activity: as per physical therapy, increase activity as tolerated Diet: Cardiac Additional Instructions: Follow up with PCP in 1 week Check INR in 3 days Take Tamiflu for 4 more days, Take azithromycin and Cefuroxime till gone. go to the ER if worsening symptoms, fever, chest pain, shortness of breath or any other concerning symptom. Prescriptions: Azithromycin [Zithromax] 250 mg PO DAILY #3 tab Cefuroxime [Ceftin] 500 mg PO Q12 #10 tab Oseltamivir Phosphate [Tamiflu] 75 mg PO BID #8 cap - Follow up Plan Disposition: Home Health Service Prognosis: Fair Rehab Potential: Fair I certify that the patient requires SNF services: No Overall status at discharge: patient is progressing back to baseline Medical - DS: Qual - VTE Deep Vein Thrombosis/Pulmonary Embolism Present on Admission: No
[2017-06-10] MEDS ORDERED: WARFARIN 5 MG TABLET PO SCH (14:00)
[2017-06-12] MEDS ORDERED: WARFARIN 3 MG TABLET PO SCH (14:00)
== END 2017-06-10 13:30 | disposition home health service (06) | DRG 871 ==
LOC: ED 19:52 → ICU 23:40
PROVIDERS: ADMIT Internal Medicine; ATTEND Internal Medicine

== ENCOUNTER 2018-08-30 11:52 | Inpatient (IN) ==
[2018-08-30] MEDS ORDERED: 0.9 % SODIUM CHLORIDE 1,000 ML IV ONE ×2 (12:21→13:40)
[2018-08-30] MEDS ORDERED: PIPERACILLIN SODIUM/TAZOBACTAM 3.375 GM in DEXTROSE 5% IN WATER 50 ML IV ONE (12:23)
--- NOTE | 2018-08-30 12:43 | Emergency Department Note ---
Fever HPI - General Chief Complaint: Fever Stated Complaint: Fever, hypoxia Time Seen by Provider: 08/30/18 12:12 Source: patient, EMS Mode of arrival: EMS Limitations: no limitations - History of Present Illness HPI Narrative: 88-year-old male who was brought in to the ER for altered mental status and fever. Patient will awaken to painful stimuli and will move around spontaneously but is not responding as normal. He was seen on 08/27/2018 and 08/24/2018-I reviewed those notes. He has been on Keflex for a cellulitis bilateral great toes and left lower extremities villalta. These are bandaged today but do not appear overwhelmingly infected-i.e. they are red but not specifically indurated. He cannot give me any history of meaningful review of systems. He is hypoxic with sats down to 75% as reported by EMS-requiring oxygen. I discussed his situation with his daughter, Mrs. Chavez. Patient is DNR - Related Data Home Medications Medication Instructions Recorded Confirmed Acetaminophen [Tylenol Extra 1,000 mg PO HS 05/19/18 07/13/18 Strength] Acetaminophen [Tylenol] 650 mg PO Q4HP PRN 05/19/18 07/13/18 Carvedilol [Coreg] 6.25 mg PO HS 05/19/18 07/13/18 Carvedilol [Coreg] 12.5 mg PO DAILY 05/19/18 07/13/18 Docusate Sodium [Colace] 100 mg PO BID 05/19/18 07/13/18 Fexofenadine [Felicia] 180 mg PO DAILY 05/19/18 07/13/18 Finasteride [Proscar] 5 mg PO DAILY 05/19/18 07/13/18 Furosemide [Lasix] 40 mg PO BID 05/19/18 07/13/18 Lactobacill 46/B.animal/Inulin 1 each PO HS 05/19/18 07/13/18 [Probiotic-10 10 Bill Cell Cap] Loperamide HCl [Loperamide] 2 mg PO PRN PRN 05/19/18 07/13/18 Magnesium Hydroxide [Milk of 30 ml PO DAILYP PRN 05/19/18 07/13/18 Magnesia] Multivit-Min/FA/Lycopen/Lutein 1 tab PO DAILY 05/19/18 07/13/18 [Sentry Senior Tablet] Omeprazole [Prilosec] 20 mg PO DAILY 05/19/18 07/13/18 Spironolactone [Aldactone] 12.5 mg PO DAILY 05/19/18 07/13/18 Tadalafil [Cialis] 10 mg PO PRN PRN 05/19/18 07/13/18 Vitamin D3 2,000 unit PO DAILY 05/19/18 07/13/18 Warfarin Sodium [Jantoven] 5 mg PO DAILY 05/19/18 07/13/18 paroxetine 10 mg tablet 10 mg PO QDAY 08/23/18 Previous Rx's Medication Instructions Recorded allopurinol 100 mg tablet 200 mg PO DAILY #90 tab 06/11/18 losartan 100 mg tablet 50 mg PO DAILY #90 tab 06/11/18 gabapentin 300 mg capsule 600 mg PO TID #180 cap 06/30/18 ipratropium bromide 0.03 % nasal 2 spray INTRANASAL BID #30 ml 07/14/18 spray potassium chloride ER 10 mEq 20 meq PO QAMCC #90 tab 07/15/18 tablet,extended release Mupirocin Oint 2% [Bactroban Oint 1 dose TOPICAL TID #1 tube 08/24/18 2%] Mupirocin Oint 2% [Bactroban Oint 1 dose TOPICAL BID #1 tube 08/27/18 2%] Nitroglycerin 0.4 mg SL Q5M PRN #25 tab.subl 08/27/18 Allergies Allergy/AdvReac Type Severity Reaction Status Date / Time prednisone Allergy Unknown Unknown Verified 07/19/18 10:38 codeine AdvReac Mild Nausea Verified 07/19/18 10:38 hydrocodone AdvReac Mild Hallucinati Verified 07/19/18 10:38 ng loratadine [From Claritin] AdvReac Mild Hallucinati Verified 07/19/18 10:38 ng tramadol AdvReac Mild Hallucinati Verified 07/19/18 10:38 ng trazodone AdvReac Mild Hallucinati Verified 07/19/18 10:38 ng azithromycin [From Zithromax] AdvReac Unknown unknown Verified 07/19/18 10:38 antidepressants Allergy Unknown Unknown Uncoded 07/13/18 14:46 narcotics Allergy Unknown Unknown Uncoded 07/13/18 14:46 quinidine gluconate Allergy Unknown Unknown Uncoded 07/13/18 14:46 Review of Systems Limitations: ROS unobtainable due to patients medical condition Fever PMH - Past Medical History [facility] Narrative: Family History (Last Reviewed 07/13/18 @ 14:48 by Kenny Beal MD) Mother Malignant neoplasm of brain Malignant Neoplasm of Thyroid Gland Unknown Diabetes mellitus Father Cardiac disease Medical History (Last Updated 08/27/18 @ 12:23 by Ryland Hoffmann DO) DNR no code (do not resuscitate) (Chronic) On Coumadin for atrial fibrillation (Chronic) Atrial fibrillation (Chronic) Ischemic cardiomyopathy (Chronic) CHF (congestive heart failure) (Chronic) Cardiomegaly (Chronic) LBBB (left bundle branch block) (Chronic) Stage 3 chronic kidney disease (Chronic) Hypertension (Chronic) Closed right hip fracture (Chronic) Anemia of chronic disease (Chronic) Hip fracture, right (Chronic) 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) Cardiomyopathy (Chronic) Mitral valve regurgitation (Chronic) Bladder trabeculation (Chronic) Retinal hemorrhage (Inactive) Peripheral neuropathy (Chronic) Obstructive uropathy (Chronic) 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) Gout (Chronic) Dysphagia (Chronic) Degenerative arthritis (Chronic) History of colonic polyps (Chronic) Blindness, legal (Chronic) Bladder tumor (Chronic) Situational depression (Chronic) Calcaneal spur, left foot (Chronic) Low back pain (Chronic) Erectile dysfunction (Chronic 05/05/14) Encounter for Health Maintenance Examination in Adult (Chronic) Chondrocalcinosis (Chronic) Altered mental state (Resolved) Aspiration pneumonitis (Resolved) Bloating (Resolved) Bursitis (Resolved) CHF exacerbation (Resolved) Community acquired pneumonia (Resolved) Elbow contusion (Resolved) Elevated liver enzymes (Resolved) Encephalopathy due to infection (Resolved) Epistaxis (Resolved) Eye trauma (Resolved) Fall (Resolved) Fever (Resolved) Fever of unknown origin (Resolved) Fever of unknown origin (Resolved) Gastroenteritis and colitis, viral (Resolved) Head injury (Resolved) Hypercalcemia (Resolved) Hypoxia (Resolved) Joint effusion of lower extremity (Resolved) Left knee pain (Resolved) Left lower lobe pneumonia (Resolved) Pleural effusion (Resolved) Pneumonia (Resolved) Pneumonia (Resolved) Rib fractures (Resolved) Severe sepsis with acute organ dysfunction (Resolved) Sprain of right hip (Resolved) Syncope (Resolved) Upper respiratory infection (Resolved) Urinary tract infection (Resolved) Vertigo (Resolved) Past Surgical History (Last Reviewed 07/13/18 @ 14:48 by Kenny Beal MD) H/O colonoscopy (Resolved 07/23/09) H/O cystoscopy (Resolved) History of appendectomy (Resolved) S/P TURP (Resolved) Medical history: Reports: arthritis, atrial fibrillation, CAD (coronary artery disease), CHF, chronic anticoagulation, dementia, GERD, hypertension, pneumonia, valvular heart disease, other (Bladder cancer, Bursitis, cardiomyopathy, retinal hemorrhage, peripheral neuropathy, gout, macular degeneration, bph, vitiligo) Psychiatric history: Reports: no psych history Family history: Reports: non-contributory - Social History smoking status: Never smoker Alcohol use: Reports: None Drug use: Reports: none Physical Exam Normocephalic atraumatic. I did open his eyelids which he promptly reshut- clearly not cooperating for my exam. I did attempt to look at his pupils though and they do seem reactive. hearing aids. No nasal discharge or congestion but is wearing nasal cannula oxygen to keep his saturations up. Oropharynx is with dry buccal mucosa. Neck is supple without lymphadenopathy thyromegaly. Heart is irregularly irregular rhythm mildly tachycardic. Lungs are clear to auscultation basically -no cough or rales. Abdomen is somewhat firm but there is no tenderness when palpating his belly. He does wince in pain with poking skin for the IV he does move his head and arms spontaneously. No pedal edema. He does have a 3 cm longitudinally oriented along the anterior villalta on the left abrasion with surrounding halo of mild erythema. It does not look indurated. There is no purulent drainage. Similarly he is got 2 ulcers bilateral great toes which are surrounded by a small halo of erythema but again not draining. He is clearly obtunded and somnolent responding only pain at this point Limitations: no limitations Course Vital Signs Temperature 99.9 F H 08/30/18 11:52 Pulse Rate 128 H 08/30/18 11:52 Respiratory Rate 25 H 08/30/18 11:52 Blood Pressure 141/76 08/30/18 11:52 Temperature 102.8 F H 08/30/18 15:31 Pulse Rate 99 H 08/30/18 15:31 Respiratory Rate 22 08/30/18 15:31 Blood Pressure 126/77 08/30/18 15:31 Pulse Oximetry (%) 99 08/30/18 15:31 Fever - Lab Data Lab results reviewed: Yes I reviewed the patient's lab results. Result diagrams: 08/30/18 12:40 08/30/18 12:40 Lab Results 08/30/18 08/30/18 08/30/18 Range/Units 12:40 12:40 12:40 WBC 12.4 H (4.5-11.0) K/mcL RBC 3.14 L (4.50-5.90) M/mcL Hgb 10.1 L (13.5-16.5) g/dL Hct 31.0 L (41.0-55.0) % MCV 98.8 (80.0-100.0) fL MCH 32.2 (26.0-34.0) pg MCHC 32.6 (31.0-36.0) g/dL RDW 16.9 H (11.5-14.5) % Plt Count 249 (140-440) K/mcL MPV 9.2 (7.4-10.4) fL Total Counted 100 Seg Neutrophils % 87 H (38-78) % Band Neutrophils % 1 (0-10) % Lymphocytes % 5 L (15-49) % Monocytes % (Manual) 7 (1-12) % Platelet Estimate Normal (NORMAL) RBC Morphology Abnormal (NORMAL) Anisocytosis 1+ A (NONE SEEN) Ovalocytes Few A (NONE SEEN) PT (11.9-14.5) sec INR (0.9-1.1) VBG Lactic Acid 1.6 (0.5-2.0) mmol/L Sodium 140 (133-145) mmol/L Potassium 5.5 H (3.3-5.1) mmol/L Chloride 106 (96-108) mmol/L Carbon Dioxide 22 (22-30) mmol/L Anion Gap 12.0 (8-16) BUN 46 H (8-23) mg/dl Creatinine 1.6 H (0.7-1.2) mg/dl GFR Calculation 38 Glucose 120 H (70-105) mg/dL Calcium 9.5 (8.6-10.4) mg/dl Total Bilirubin 1.7 H (0.0-1.0) mg/dL AST 25 (0-37) U/l ALT 15 (0-40) U/l Alkaline Phosphatase 77 (39-117) U/L NT-Pro-B Natriuret Pep (0-450) pg/ml Total Protein 7.5 (5.9-8.4) gm/dL Albumin 3.5 (3.2-5.2) gm/dL Globulin 4.0 H (2.2-3.7) gm/dL Albumin/Globulin Ratio 0.9 L (1.0-2.3) Procalcitonin (<0.10) ng/mL Urine Color Urine Appearance Urine pH (5.0-9.0) Ur Specific [place] (1.000-1.035) Urine Protein (NEG) mg/dL Urine Glucose (UA) (NEG) mg/dL Urine Ketones (NEG) mg/dL Urine Occult Blood (<0.03) mg/dL Urine Nitrate (NEG) Urine Bilirubin (NEG) mg/dL Urine Urobilinogen (NEG) mg/dL Ur Leukocyte Esterase (NEG) /uL Urine RBC (0-1) /hpf Urine WBC (0-4) /hpf Ur Squamous Epith Cells (0-4) /hpf Amorphous Crystals (0) /hpf Urine Bacteria (0) /hpf Hyaline Casts (0-2) /lpf Urine Mucus (0) /hpf Ur Culture Indicated? 08/30/18 08/30/18 08/30/18 Range/Units 12:40 12:40 12:40 WBC (4.5-11.0) K/mcL RBC (4.50-5.90) M/mcL Hgb (13.5-16.5) g/dL Hct (41.0-55.0) % MCV (80.0-100.0) fL MCH (26.0-34.0) pg MCHC (31.0-36.0) g/dL RDW (11.5-14.5) % Plt Count (140-440) K/mcL MPV (7.4-10.4) fL Total Counted Seg Neutrophils % (38-78) % Band Neutrophils % (0-10) % Lymphocytes % (15-49) % Monocytes % (Manual) (1-12) % Platelet Estimate (NORMAL) RBC Morphology (NORMAL) Anisocytosis (NONE SEEN) Ovalocytes (NONE SEEN) PT 28.5 H (11.9-14.5) sec INR 2.7 H (0.9-1.1) VBG Lactic Acid (0.5-2.0) mmol/L Sodium (133-145) mmol/L Potassium (3.3-5.1) mmol/L Chloride (96-108) mmol/L Carbon Dioxide (22-30) mmol/L Anion Gap (8-16) BUN (8-23) mg/dl Creatinine (0.7-1.2) mg/dl GFR Calculation Glucose (70-105) mg/dL Calcium (8.6-10.4) mg/dl Total Bilirubin (0.0-1.0) mg/dL AST (0-37) U/l ALT (0-40) U/l Alkaline Phosphatase (39-117) U/L NT-Pro-B Natriuret Pep 9174.0 H (0-450) pg/ml Total Protein (5.9-8.4) gm/dL Albumin (3.2-5.2) gm/dL Globulin (2.2-3.7) gm/dL Albumin/Globulin Ratio (1.0-2.3) Procalcitonin 0.80 (<0.10) ng/mL Urine Color Urine Appearance Urine pH (5.0-9.0) Ur Specific [place] (1.000-1.035) Urine Protein (NEG) mg/dL Urine Glucose (UA) (NEG) mg/dL Urine Ketones (NEG) mg/dL Urine Occult Blood (<0.03) mg/dL Urine Nitrate (NEG) Urine Bilirubin (NEG) mg/dL Urine Urobilinogen (NEG) mg/dL Ur Leukocyte Esterase (NEG) /uL Urine RBC (0-1) /hpf Urine WBC (0-4) /hpf Ur Squamous Epith Cells (0-4) /hpf Amorphous Crystals (0) /hpf Urine Bacteria (0) /hpf Hyaline Casts (0-2) /lpf Urine Mucus (0) /hpf Ur Culture Indicated? 08/30/18 Range/Units 15:00 WBC (4.5-11.0) K/mcL RBC (4.50-5.90) M/mcL Hgb (13.5-16.5) g/dL Hct (41.0-55.0) % MCV (80.0-100.0) fL MCH (26.0-34.0) pg MCHC (31.0-36.0) g/dL RDW (11.5-14.5) % Plt Count (140-440) K/mcL MPV (7.4-10.4) fL Total Counted Seg Neutrophils % (38-78) % Band Neutrophils % (0-10) % Lymphocytes % (15-49) % Monocytes % (Manual) (1-12) % Platelet Estimate (NORMAL) RBC Morphology (NORMAL) Anisocytosis (NONE SEEN) Ovalocytes (NONE SEEN) PT (11.9-14.5) sec INR (0.9-1.1) VBG Lactic Acid (0.5-2.0) mmol/L Sodium (133-145) mmol/L Potassium (3.3-5.1) mmol/L Chloride (96-108) mmol/L Carbon Dioxide (22-30) mmol/L Anion Gap (8-16) BUN (8-23) mg/dl Creatinine (0.7-1.2) mg/dl GFR Calculation Glucose (70-105) mg/dL Calcium (8.6-10.4) mg/dl Total Bilirubin (0.0-1.0) mg/dL AST (0-37) U/l ALT (0-40) U/l Alkaline Phosphatase (39-117) U/L NT-Pro-B Natriuret Pep (0-450) pg/ml Total Protein (5.9-8.4) gm/dL Albumin (3.2-5.2) gm/dL Globulin (2.2-3.7) gm/dL Albumin/Globulin Ratio (1.0-2.3) Procalcitonin (<0.10) ng/mL Urine Color Yellow Urine Appearance Hazy Urine pH 5.0 (5.0-9.0) Ur Specific [place] 1.019 (1.000-1.035) Urine Protein 30 A (NEG) mg/dL Urine Glucose (UA) Negative (NEG) mg/dL Urine Ketones Neg (NEG) mg/dL Urine Occult Blood >=1.0 A (<0.03) mg/dL Urine Nitrate Neg (NEG) Urine Bilirubin Neg (NEG) mg/dL Urine Urobilinogen Neg (NEG) mg/dL Ur Leukocyte Esterase Neg (NEG) /uL Urine RBC 37 H (0-1) /hpf Urine WBC 4 (0-4) /hpf Ur Squamous Epith Cells 0 (0-4) /hpf Amorphous Crystals Mod A (0) /hpf Urine Bacteria 0 (0) /hpf Hyaline Casts 23 H (0-2) /lpf Urine Mucus Few (0) /hpf Ur Culture Indicated? No - Radiology Data Radiology results reviewed: Yes I reviewed the patient's radiology results. Chest x-ray shows no acute disease process. CT scan of the head shows small focal area of encephalomalacia but no acute findings - EKG Data EKG attestation: Yes I reviewed and interpreted this EKG. EKG results narrative: EKG today shows atrial fibrillation left bundle branch block with a rate of 111 no change with compared with 08/27/2018 Critical Care Time Critical Care Time: No Total Critical Care Time: 1 Attestation: Proxy 1 hour of critical care time in addition to initial evaluation and management. This includes discussion of results with family, documentation, discussing results with specialists and coordinating care as well as serial exams. 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, Psoas abscess, left, Acute kidney injury Altered mental status Qualifiers: Altered mental status type: somnolence Qualified Code(s): R40.0 - Somnolence Toe ulcer Qualifiers: Laterality: unspecified laterality Non-pressure ulcer stage: limited to breakdown of skin Qualified Code(s): L97.501 - Non-pressure chronic ulcer of other part of unspecified foot limited to breakdown of skin Sepsis Qualifiers: Sepsis type: sepsis due to unspecified organism Qualified Code(s): A41.9 - Sepsis, unspecified organism CHF (congestive heart failure) Qualifiers: Heart failure type: unspecified Heart failure chronicity: acute on chronic Qualified Code(s): I50.9 - Heart failure, unspecified Summary: After initial evaluation work-up ordered with laboratory x-ray and CT scan of the head. EKG is without change. Start blood cultures and Zosyn for possible sepsis with altered mental status. Bynum with temp probe to be placed CT scan of head and chest x-ray do not show acute changes so CT of the chest abdomen pelvis without contrast is done to try to sort out what is causing his sepsis picture. Laboratories consistent with bacterial infection/sepsis He did get 1 L of fluid and I wrote for a second liter but this was stopped secondary to elevated BNP. Clinically he is dry. However he also has acute kidney injury with elevation of creatinine and BUN. CT scan of the chest abdomen pelvis shows enlarged heart and possible left so as muscle abscess as cause for his sepsis. Discussed case with Dr. Garcia, interventional radiologist who agrees that he can drain the psoas abscess. I did discuss the case with Dr. Gonzalez our hospitalist who agreed to accept the patient for further care and transfer. They will attempt to reverse his anticoagulation in order for him to get the abscess drainage. He will be admitted to the ICU Disposition: Xfer As Inpt ([facility]) Condition: Critical Referrals: Kenny Beal MD [Primary Care Provider] -
[2018-08-30 13:24] LABS: Mean Cell Volume 98.8 fL (80.0-100.0); Mean Corpuscular HGB Conc 32.6 g/dL (31.0-36.0); Platelet Count 249 K/mcL (140-440); RBC 3.14 M/mcL (4.50-5.90); Red Cell Distribution Width 16.9 % (11.5-14.5)
--- NOTE | 2018-08-30 13:35 | Cat Scan Report ---
CLINICAL INFORMATION: Fever. Hypoxia. COMPARISON: Previous examination dated 07/19/2018 TECHNIQUE: Axial noncontrast-enhanced images through the brain. Sagittal and coronal reformatted images FINDINGS: No acute intracranial hemorrhage. No intra-axial hematoma. There is cerebral atrophy with enlarged superficial subarachnoid spaces and ventriculomegaly. There is a focal area of encephalomalacia consistent with old infarction in the superior and posterior right temporal lobe. Findings are unchanged since 07/19/2018. No acute intra-axial attenuation abnormalities. No localized mass effect. No midline shift. There is white matter abnormality consistent with small vessel ischemic change in this 88-year-old patient. There is basal ganglion calcification bilaterally. Brainstem and cerebellum are negative. There is cerebellar atrophy. There is dentate nucleus calcification. Extra-axial, intracranial hemorrhage. No subdural hematoma. No subarachnoid hemorrhage. Basilar cisterns are negative. No calvarial lesions. No lytic lesion. There is no fracture. Temporal bones are negative IMPRESSION: 1. No acute intracranial hemorrhage 2. Cerebral atrophy. White matter abnormality consistent with small vessel ischemic change 3. Small focal area of encephalomalacia in the right temporal lobe 4. No significant interval change since 07/19/2018 The exam was performed using radiation dose optimization techniques including, but not limited to, automated exposure control, adjustment of the mA and/or kV according to patient size and use of iterative reconstruction technique. Interpreted and Authenticated by: Bar Garcia 08/30/18
--- NOTE | 2018-08-30 13:36 | XRay Report ---
INDICATION: Fever TECHNIQUE: AP chest x-ray,portable upright COMPARISON: Previous chest x-rays dated 08/27/2018, 07/19/2018, 04/19/2018 FINDINGS:There is cardiomegaly. This is essentially unchanged since 08/27/2018 and 07/19/2018. This is increased since 04/19/2018. No pulmonary congestion. There is no pulmonary edema. No focal pulmonary parenchymal infiltrate or mass. IMPRESSION: 1. Cardiomegaly 2. No pulmonary congestion or pulmonary edema. No acute or focal pulmonary parenchymal infiltrate Interpreted and Authenticated by: Bar Garcia 08/30/18
[2018-08-30 13:45] LABS: ALT/SGPT 15 U/l (0-40); Albumin 3.5 gm/dL (3.2-5.2); Albumin/Globulin Ratio 0.9 (1.0-2.3); Alkaline Phosphatase 77 U/L (39-117); Blood Urea Nitrogen 46 mg/dl (8-23)
[2018-08-30 13:59] LABS: Anisocytosis 1+ (NONE SEEN); Band Neutrophils % 1 % (0-10); Lymphocytes % 5 % (15-49); Monocytes % (Manual) 7 % (1-12); Ovalocytes FEW (NONE SEEN); Platelet Estimate NORMAL (NORMAL); RBC Morphology ABNORMAL (NORMAL); Segmented Neutrophils % 87 % (38-78)
--- NOTE | 2018-08-30 15:10 | Cat Scan Report ---
CLINICAL INFORMATION: Fever. Altered mental status. TECHNIQUE: Axial noncontrast enhanced images through the chest, abdomen, pelvis. Sagittal and coronal reformatted images COMPARISON: Chest x-ray dated 08/30/2018. Abdomen dated 08/27/2018 FINDINGS: CHEST: No pulmonary parenchymal consolidation. No discrete pulmonary parenchymal mass. No evidence for significant pneumonia. There is mild bilateral lower lobe atelectasis. There is a small left pleural effusion. There is severe cardiomegaly. There is no pericardial effusion. There are small nonspecific mediastinal lymph nodes. No pathologic axillary or supraclavicular adenopathy. There is mild calcification of the thoracic aorta. Ascending thoracic aorta measures 4.1 cm in diameter. Main pulmonary artery measures 3.9 cm in diameter. This suggests pulmonary arterial hypertension. Thoracic spine is negative. No compression deformities. No rib or sternal lesions. ABDOMEN, PELVIS: Enlargement of the left iliac gas and psoas muscle. This patient is apparently septic. This may be a psoas abscess. There is no evidence for disc infection. Etiology is not certain. Liver is negative to the limits of noncontrast enhanced examination. No hepatic mass. Liver contour is smooth. There is no evidence for cirrhosis. There may be small gallstones in the dependent portion of the gallbladder. This is not definite. No gallbladder wall thickening or pericholecystic fluid. No dilated bile ducts. Negative spleen. No splenomegaly. Adrenal glands are negative. No pancreatic mass. No peripancreatic abnormality. There is no hydronephrosis. Kidneys appear mildly atrophic bilaterally. No detectable mass. Colon is negative. There is no diverticulitis. No technical colonic mass. There is no appendicitis. No mechanical small bowel obstruction. Prostate is mildly enlarged. There is no retroperitoneal or mesenteric adenopathy. No intra-abdominal abscess. No free intraperitoneal fluid. No pneumoperitoneum. No biliary or portal venous gas. There is calcification of the abdominal aorta. No abdominal aortic aneurysm. No lumbar compression fracture. No lytic lesion. Sacrum and sacroiliac joints are unremarkable. Findings consistent with spinal canal stenosis at L3-4 and L4-5. No detectable disc infection. No detectable epidural abscess. IMPRESSION: 1. Enlargement of the left iliac us and psoas muscles. Psoas abscess is possible in this patient with a supplied history of sepsis 2. Cardiomegaly. 3. Dilatation of the main pulmonary artery suggests pulmonary arterial hypertension 4. Possible cholelithiasis. No evidence for cholecystitis 5. Atherosclerosis Interpreted and Authenticated by: Bar Garcia 08/30/18
[2018-08-30] MEDS ORDERED: ACETAMINOPHEN 1,000 MG/100 ML BOTTLE IV ONE (15:14)
[2018-08-30 15:46] LABS: Appearance,Urine HAZY; Bacteria,Urine 0 /hpf (0); Bilirubin,Urine NEG (NEG); Color,Urine YELLOW; Glucose,Urine (UA) NEGATIVE (NEG); Leukocyte Esterase,Urine NEG /uL (NEG); Mucus,Urine FEW /hpf (0); Protein,Urine 30 mg/dL (NEG); Specific Gravity,Urine 1.019 (1.000-1.035); Urine Amorphous Crystals MOD /hpf (0); Urine Blood >=1.0 mg/dL (<0.03); Urine Hyaline Cast 23 /lpf (0-2); Urine RBC 37 /hpf (0-1); Urine Squamous Epithelial Cell 0 /hpf (0-4); Urine WBC 4 /hpf (0-4); Urobilinogen,Urine NEG (NEG)
[2018-08-30] MEDS ORDERED: LORazepam 2 MG/ML VIAL IV ONE (16:28)
--- NOTE | 2018-08-30 16:37 | Internal Med History&Physical ---
Medical - H&P: HPI Patient information: Note initiated : 08/30/18 at 4:34 pm Service Date, if different from initiated Date: [] Patient: Silvio Wallace a 88 y/o M admitted on for Fever, Hypoxia. Chief Complaint: [] History of present illness: Mr. Wallace is a 88 year old M lives in assisted living facility presents to the hospital today for evaluation of altered mental status, shortness of breath. The patient also has pain on the left side according to his daughter. The patient at baseline is alert and oriented, a few days ago he started screaming that he is not feeling well and is hurting, there is a history of fall on the left side according to the daughter. The patient was brought to the emergency room a few days ago when he had this episode of screaming, at that time he was diagnosed with cellulitis of his lower extremities, he does have open ulcers on both his toes of the medial aspect. He was prescribed Keflex and discharged back to the facility. The patient's condition as far as cellulitis is concerned and improved however his mental status did not. Today the patient was grossly altered and when the EMS was called his oxygen saturation was 75% on room air. The patient was sent to the emergency room for urgent evaluation. The patient's daughter was by the bedside who provided some history the patient was confused and was unable to provide any meaningful history The maximum temperature in the emergency room was 102.7, heart rate up to 128, blood pressure on presentation was 141 x 76, patient was saturating around 98 to 99% on 8 L of oxygen which was later weaned down to 3 to 4 L. 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 Patient is being admitted to the PCU status, discussed case with radiology plan to have a drain placed today and appropriate cultures will be sent. Patient has already received Zosyn in the ED, and was on Keflex as an outpatient for his cellulitis. Given advanced age, comorbidities the patient has overall poor prognosis, this has been explained to the patients daughter ROS unobtainable: due to mental status Medical - H&P: PM Medical history: Medical History (Last Updated 08/27/18 @ 12:23 by Ryland Hoffmann DO) DNR no code (do not resuscitate) (Chronic) On Coumadin for atrial fibrillation (Chronic) Atrial fibrillation (Chronic) Ischemic cardiomyopathy (Chronic) CHF (congestive heart failure) (Chronic) Cardiomegaly (Chronic) LBBB (left bundle branch block) (Chronic) Stage 3 chronic kidney disease (Chronic) Hypertension (Chronic) Closed right hip fracture (Chronic) Anemia of chronic disease (Chronic) Hip fracture, right (Chronic) office rn current use of anticoagulant therapy (Chronic) Cardiomyopathy (Chronic) Mitral valve regurgitation (Chronic) Bladder trabeculation (Chronic) Retinal hemorrhage (Inactive) Peripheral neuropathy (Chronic) Obstructive uropathy (Chronic) 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) Gout (Chronic) Dysphagia (Chronic) Degenerative arthritis (Chronic) History of colonic polyps (Chronic) Blindness, legal (Chronic) Bladder tumor (Chronic) Situational depression (Chronic) Calcaneal spur, left foot (Chronic) Low back pain (Chronic) Erectile dysfunction (Chronic 05/05/14) Encounter for Health Maintenance Examination in Adult (Chronic) Chondrocalcinosis (Chronic) Altered mental state (Resolved) Aspiration pneumonitis (Resolved) Bloating (Resolved) Bursitis (Resolved) CHF exacerbation (Resolved) Community acquired pneumonia (Resolved) Elbow contusion (Resolved) Elevated liver enzymes (Resolved) Encephalopathy due to infection (Resolved) Epistaxis (Resolved) Eye trauma (Resolved) Fall (Resolved) Fever (Resolved) Fever of unknown origin (Resolved) Fever of unknown origin (Resolved) Gastroenteritis and colitis, viral (Resolved) Head injury (Resolved) Hypercalcemia (Resolved) Hypoxia (Resolved) Joint effusion of lower extremity (Resolved) Left knee pain (Resolved) Left lower lobe pneumonia (Resolved) Pleural effusion (Resolved) Pneumonia (Resolved) Pneumonia (Resolved) Rib fractures (Resolved) Severe sepsis with acute organ dysfunction (Resolved) Sprain of right hip (Resolved) Syncope (Resolved) Upper respiratory infection (Resolved) Urinary tract infection (Resolved) Vertigo (Resolved) Surgical history: Past Surgical History (Last Reviewed 07/13/18 @ 14:48 by Kenny Beal MD) H/O colonoscopy (Resolved 07/23/09) H/O cystoscopy (Resolved) History of appendectomy (Resolved) S/P TURP (Resolved) Pertinent family history: Family History (Last Reviewed 07/13/18 @ 14:48 by Kenny Beal MD) Mother Malignant neoplasm of brain Malignant Neoplasm of Thyroid Gland Unknown Diabetes mellitus Father Cardiac disease Medical - H&P: Meds Home Medications Medication Instructions Recorded Confirmed Type Acetaminophen [Tylenol Extra 1,000 mg PO HS 05/19/18 07/13/18 History Strength] Acetaminophen [Tylenol] 650 mg PO Q4HP PRN 05/19/18 07/13/18 History Carvedilol [Coreg] 6.25 mg PO HS 05/19/18 07/13/18 History Carvedilol [Coreg] 12.5 mg PO DAILY 05/19/18 07/13/18 History Docusate Sodium [Colace] 100 mg PO BID 05/19/18 07/13/18 History Fexofenadine [Felicia] 180 mg PO DAILY 05/19/18 07/13/18 History Finasteride [Proscar] 5 mg PO DAILY 05/19/18 07/13/18 History Furosemide [Lasix] 40 mg PO BID 05/19/18 07/13/18 History Lactobacill 46/B.animal/Inulin 1 each PO HS 05/19/18 07/13/18 History [Probiotic-10 10 Bill Cell Cap] Loperamide HCl [Loperamide] 2 mg PO PRN PRN 05/19/18 07/13/18 History Magnesium Hydroxide [Milk of 30 ml PO DAILYP PRN 05/19/18 07/13/18 History Magnesia] Multivit-Min/FA/Lycopen/Lutein 1 tab PO DAILY 05/19/18 07/13/18 History [Sentry Senior Tablet] Omeprazole [Prilosec] 20 mg PO DAILY 05/19/18 07/13/18 History Spironolactone [Aldactone] 12.5 mg PO DAILY 05/19/18 07/13/18 History Tadalafil [Cialis] 10 mg PO PRN PRN 05/19/18 07/13/18 History Vitamin D3 2,000 unit PO DAILY 05/19/18 07/13/18 History Warfarin Sodium [Jantoven] 5 mg PO DAILY 05/19/18 07/13/18 History allopurinol 100 mg tablet 200 mg PO DAILY #90 tab 06/11/18 07/13/18 Rx losartan 100 mg tablet 50 mg PO DAILY #90 tab 06/11/18 07/13/18 Rx gabapentin 300 mg capsule 600 mg PO TID #180 cap 06/30/18 07/13/18 Rx ipratropium bromide 0.03 % nasal 2 spray INTRANASAL BID #30 ml 07/14/18 07/14/18 Rx spray potassium chloride ER 10 mEq 20 meq PO QAMCC #90 tab 07/15/18 Rx tablet,extended release paroxetine 10 mg tablet 10 mg PO QDAY 08/23/18 History Mupirocin Oint 2% [Bactroban Oint 1 dose TOPICAL TID #1 tube 08/24/18 Rx 2%] Mupirocin Oint 2% [Bactroban Oint 1 dose TOPICAL BID #1 tube 08/27/18 Rx 2%] Nitroglycerin 0.4 mg SL Q5M PRN #25 tab.subl 08/27/18 Rx Allergies Allergy/AdvReac Type Severity Reaction Status Date / Time prednisone Allergy Unknown Unknown Verified 07/19/18 10:38 codeine AdvReac Mild Nausea Verified 07/19/18 10:38 hydrocodone AdvReac Mild Hallucinati Verified 07/19/18 10:38 ng loratadine [From Claritin] AdvReac Mild Hallucinati Verified 07/19/18 10:38 ng tramadol AdvReac Mild Hallucinati Verified 07/19/18 10:38 ng trazodone AdvReac Mild Hallucinati Verified 07/19/18 10:38 ng azithromycin [From Zithromax] AdvReac Unknown unknown Verified 07/19/18 10:38 antidepressants Allergy Unknown Unknown Uncoded 07/13/18 14:46 narcotics Allergy Unknown Unknown Uncoded 07/13/18 14:46 quinidine gluconate Allergy Unknown Unknown Uncoded 07/13/18 14:46 Medical - H&P: Exam - Constitutional Vitals: Temp Pulse Resp BP Pulse Ox 101.8 F H 89 22 114/74 93 08/30/18 16:32 08/30/18 16:32 08/30/18 16:32 08/30/18 16:31 08/30/18 16:32 Exam: GENERAL: The patient is a well-developed, well-nourished in no apparent distress. Is alert and oriented x1. VITAL SIGNS: Reviewed and as noted elsewhere. HEENT: Head is normocephalic and atraumatic. Extraocular muscles are intact. Pupils are equal, round, and reactive to light. Nares appeared normal. Mouth appears any without lesions. Mucous membranes are dry. NECK: Normal to inspection, Supple, No lymphadenopathy or thyromegaly. LUNGS: Air entry equal on both sides, no wheezing, crackles or rhonchi noted. No accessory muscles of respiration HEART: Regular rate and rhythm irregular , S1 and S2 heard, no Gallop, S3 or Rub Noted, systolic murmur mitral /aortic region ABDOMEN: Soft, nontender, and nondistended. Positive bowel sounds. No hepatosplenomegaly was noted. left flank mild tenderness noted EXTREMITIES: No cyanosis, clubbing, rash, lesions or edema. Bul ulcers on 1st toe medial aspect, clean NEUROLOGIC: Cranial nerves II through XII are grossly intact. able to follow some commands, PSYCHIATRIC: confused drowsy SKIN: No ulceration or wounds noted, No jaundice, No rash noted. Medical - H&P: Reslt - Labs CBC & Chem 7: 08/30/18 12:40 08/30/18 12:40 Labs: Short CBC 08/30/18 Range/Units 12:40 WBC 12.4 H (4.5-11.0) K/mcL Hgb 10.1 L (13.5-16.5) g/dL Hct 31.0 L (41.0-55.0) % Plt Count 249 (140-440) K/mcL BMP 08/30/18 12:40 Sodium 140 Potassium 5.5 H Chloride 106 Carbon Dioxide 22 BUN 46 H Creatinine 1.6 H Glucose 120 H Calcium 9.5 Liver Function 08/30/18 Range/Units 12:40 Total Bilirubin 1.7 H (0.0-1.0) mg/dL AST 25 (0-37) U/l ALT 15 (0-40) U/l Alkaline Phosphatase 77 (39-117) U/L Albumin 3.5 (3.2-5.2) gm/dL Urine 08/30/18 Range/Units 15:00 Urine Color Yellow Urine Appearance Hazy Urine pH 5.0 (5.0-9.0) Ur Specific [place] 1.019 (1.000-1.035) Urine Protein 30 A (NEG) mg/dL Urine Glucose (UA) Negative (NEG) mg/dL Medical - H&P: A/P - Narrative A/P Narrative: A/P Psoas Abscess Sepsis Septic Encephalopathy Anemia, of Chr Disease Anticoagulation on coumadin, Atrial fibrillation Hyperkalemia Chronic Kidney Disease h/o Congestive heart failure Gout Toe Ulcers Plan Admit to PCU, qsofa score of 2, bp is stable lactic acid normal. To have psoas drain placed today, CT guided by radiology, increased risk of bleeding noted. will reverse anticoagulation if bleeding not being controlled IV vancomycin and zosy, send fluid for culture hold blood pressure medications, hold KCL supplements IV fluids trend renal function, monitor urine output Resume home medications as appropriate. Wound care consult DVT on coumadin with therapeutic INR DNR code status, to verify POST Social History - Social History housing: assisted living facility marital status: senior living: Yes (Resides on the assisted living side [facility]) occupational status: retired occupation: [employer] other: Children-1 daughter - Tobacco smoking status: Never smoker - Alcohol alcohol intake frequency: former alcohol drinker - Substance use substance use type: does not use
[2018-08-30] MEDS ORDERED: LIDOCAINE 1% 20 ML VIAL SQ ONE (17:35)
[2018-08-30] MEDS ORDERED: NALOXONE HCL 0.4 MG/ML VIAL IV PRN (17:38)
[2018-08-30] MEDS ORDERED: LACTATED RINGERS 1,000 ML IV SCH (17:38)
[2018-08-30] MEDS ORDERED: HYDROmorphone 2 MG/ML VIAL IV PRN (17:38)
[2018-08-30] MEDS ORDERED: VANCOMYCIN PER PHARMACY IV SCH (17:38)
[2018-08-30] MEDS ORDERED: ONDANSETRON 4 MG/2 ML VIAL IV PRN (17:38)
[2018-08-30] MEDS ORDERED: NITROGLYCERIN 0.4 MG TAB.SUBL SL PRN (17:42)
[2018-08-30] MEDS: PIPERACILLIN SODIUM/TAZOBACTAM 2.25 GM in DEXTROSE 5% IN WATER 50 ML IV SCH (17:54)
[2018-08-30] MEDS ORDERED: WARFARIN 2.5 MG TABLET PO ONE (19:00)
[2018-08-30] MEDS: VANCOMYCIN 1,500 MG in 0.9 % SODIUM CHLORIDE 500 ML IV SCH (19:22)
--- NOTE | 2018-08-30 19:26 | Cat Scan Report ---
CLINICAL INFORMATION: History of sepsis. There is enlargement of the left psoas and iliac is muscles on previous CT scan COMPARISON: Previous abdominal and pelvic CT scan dated 08/30/2018 FINDINGS: Patient was rescanned in supine position. Routine fluoroscopy prepped skin cleansing in the left lower quadrant. 1% lidocaine injected. A 17-gauge needle was advanced into the left psoas muscle. Muscle was aspirated. Aspiration is productive of only a small amount of very dark bloody fluid. No purulent fluid was obtained. This enlargement of the psoas and iliacus muscles may be secondary to hemorrhage. The patient's INR is elevated Dark bloody fluid was sent to the laboratory for culture. A drainage catheter was not placed at this time. IMPRESSION: 1. CT-guided aspiration of the left psoas muscle 2. Small amount of very dark bloody fluid was removed. Purulent material was not obtained and a drainage catheter was not placed Interpreted and Authenticated by: Bar Garcia 08/30/18
[2018-08-30] MEDS: GABAPENTIN 300 MG CAPSULE PO SCH (21:17)
[2018-08-30] MEDS: 0.9 % SODIUM CHLORIDE 10 ML SYRINGE IV SCH (22:46)
[2018-08-30] MEDS ORDERED: OLANZapine 10 MG VIAL IM ONE (23:11)
[2018-08-31] MEDS: PIPERACILLIN SODIUM/TAZOBACTAM 2.25 GM in DEXTROSE 5% IN WATER 50 ML IV SCH ×2 (01:13→05:25)
[2018-08-31] MEDS: OLANZapine 10 MG VIAL IM SCH ×2 (01:13→23:07)
[2018-08-31] MEDS: ACETAMINOPHEN 650 MG/65 ML BOTTLE IV PRN ×3 (01:31→14:40)
[2018-08-31] MEDS: 0.9 % SODIUM CHLORIDE 10 ML SYRINGE IV SCH ×3 (05:26→21:15)
[2018-08-31 06:28] LABS: Basophils # (Auto) 0 K/mcL (0.0-0.3); Basophils % (Auto) 0 % (0.0-2.0); Eosinophils # (Auto) 0.1 K/mcL (0.0-0.7); Eosinophils % (Auto) 0.9 % (0.0-7.0); Granulocytes % (Auto) 82.8 % (38.0-78.0); Lymphocytes # (Auto) 0.6 K/mcL (1.5-4.8); Lymphocytes % (Auto) 7.9 % (15.5-49.0); Mean Cell Volume 98.2 fL (80.0-100.0); Mean Corpuscular HGB Conc 32.6 g/dL (31.0-36.0); Monocytes # (Auto) 0.6 K/mcL (0.1-0.9); Monocytes % (Auto) 8.4 % (1.0-12.0); Platelet Count 204 K/mcL (140-440); RBC 2.63 M/mcL (4.50-5.90)
[2018-08-31] MEDS: OMEPRAZOLE 20 MG CAPSULE PO SCH ×2 (06:29→09:45)
[2018-08-31 06:33] LABS: ALT/SGPT 12 U/l (0-40); Albumin 2.9 gm/dL (3.2-5.2); Albumin/Globulin Ratio 0.9 (1.0-2.3); Alkaline Phosphatase 58 U/L (39-117); Bilirubin,Direct 0.5 mg/dL (0.0-0.3); Blood Urea Nitrogen 50 mg/dl (8-23); Gamma Glutamyl Transpeptidase 33 U/L (8-61); Uric Acid 6.6 mg/dL (2.5-8.0)
[2018-08-31] MEDS ORDERED: PAROXETINE HCL 10 MG PO SCH (09:00)
--- NOTE | 2018-08-31 09:12 | General Surgery Consult Note ---
History of Present Illness Patient information: Note initiated : 08/31/18 at 9:08 am Service Date, if different from initiated Date: [] Patient: Silvio Wallace 88 y/o M admitted on 08/30/18 for Fever, Hypoxia. Chief Complaint: [] Consult date: 08/31/18 Requesting physician: Andres Gonzalez (Wounds / Toe Ulcers) History of present illness: I saw this patient in consultation along with Karyna RN in room 120 / C ICU. 88/M Admitted via ER for AMS, h/o fall and skin wounds Left anterior mid villalta area. Patient was seen in ER earlier and treated with Keflex. Patient is a poor historian. Information obtained from nurse and EHR Medications and Allergies Home Medications Medication Instructions Recorded Confirmed Type Acetaminophen [Tylenol Extra 1,000 mg PO HSP PRN 05/19/18 08/30/18 History Strength] Acetaminophen [Tylenol] 650 mg PO Q4HP PRN 05/19/18 08/30/18 History Docusate Sodium [Colace] 100 mg PO BID 05/19/18 08/30/18 History Fexofenadine [Felicia] 180 mg PO DAILY 05/19/18 08/30/18 History Finasteride [Proscar] 5 mg PO DAILY 05/19/18 08/30/18 History Furosemide [Lasix] 40 mg PO BIDD 05/19/18 08/30/18 History Lactobacill 46/B.animal/Inulin 1 each PO HS 05/19/18 08/30/18 History [Probiotic-10 10 Bill Cell Cap] Loperamide HCl [Loperamide] 2 mg PO PRN PRN 05/19/18 08/30/18 History Magnesium Hydroxide [Milk of 30 ml PO DAILYP PRN 05/19/18 08/30/18 History Magnesia] Multivit-Min/FA/Lycopen/Lutein 1 tab PO DAILY 05/19/18 08/30/18 History [Sentry Senior Tablet] Omeprazole [Prilosec] 20 mg PO QAMAC 05/19/18 08/30/18 History Spironolactone [Aldactone] 12.5 mg PO DAILY 05/19/18 08/30/18 History Vitamin D3 2,000 unit PO DAILY 05/19/18 08/30/18 History Warfarin Sodium [Jantoven] 5 mg PO DAILY 05/19/18 08/30/18 History allopurinol 100 mg tablet 200 mg PO DAILY #90 tab 06/11/18 08/30/18 Rx losartan 100 mg tablet 50 mg PO DAILY #90 tab 06/11/18 08/30/18 Rx gabapentin 300 mg capsule 600 mg PO TID #180 cap 06/30/18 08/30/18 Rx ipratropium bromide 0.03 % nasal 2 spray INTRANASAL BID #30 ml 07/14/18 08/30/18 Rx spray potassium chloride ER 10 mEq 20 meq PO QAMCC #90 tab 07/15/18 08/30/18 Rx tablet,extended release Mupirocin Oint 2% [Bactroban Oint 1 dose TOPICAL TID #1 tube 08/24/18 08/30/18 Rx 2%] Nitroglycerin 0.4 mg SL Q5M PRN #25 tab.subl 08/27/18 08/30/18 Rx Bisacodyl [Dulcolax] 10 mg [place] DAILYP PRN 08/30/18 08/30/18 History Calcium Carbonate [Tums] 1,000 mg CHEWED Q4HP PRN 08/30/18 08/30/18 History Metoprolol Succinate [Toprol Xl] 50 mg PO BID 08/30/18 08/30/18 History Nystatin Crm 1 dose TOPICAL BIDP PRN 08/30/18 08/30/18 History Allergies Allergy/AdvReac Type Severity Reaction Status Date / Time prednisone Allergy Unknown Unknown Verified 07/19/18 10:38 codeine AdvReac Mild Nausea Verified 07/19/18 10:38 hydrocodone AdvReac Mild Hallucinati Verified 07/19/18 10:38 ng loratadine [From Claritin] AdvReac Mild Hallucinati Verified 07/19/18 10:38 ng tramadol AdvReac Mild Hallucinati Verified 07/19/18 10:38 ng trazodone AdvReac Mild Hallucinati Verified 07/19/18 10:38 ng azithromycin [From Zithromax] AdvReac Unknown unknown Verified 07/19/18 10:38 antidepressants Allergy Unknown Unknown Uncoded 07/13/18 14:46 narcotics Allergy Unknown Unknown Uncoded 07/13/18 14:46 quinidine gluconate Allergy Unknown Unknown Uncoded 07/13/18 14:46 Exam Temp Pulse Resp BP Pulse Ox 101.5 F H 92 H 27 H 146/100 95 08/31/18 08:01 08/30/18 21:00 08/31/18 08:01 08/31/18 08:01 08/31/18 08:01 - General physical appearance well developed, well nourished, no distress, other (Variable attention span. Incoherent speech at times. H/O ETOH in past. ) - Eyes normal ocular movement - ENT normal pinna, normal mucosa, no congestion - Head Head exam IM: Present: normocephalic - Neck no masses, trachea midline, no venous distension - Cardiovascular Cardiovascular exam IM: Present: irregular rhythm, tachycardia Peripheral pulses: 1+: dorsalis pedis (L), dorsalis pedis (R), 2+: posterior tibialis (L), posterior tibialis (R) - Respiratory normal respiratory effort, clear to auscultation - Abdomen Abdomen: Present: soft, non tender, bowel sounds - Integumentary Present: other (Left groin skin wound ( Attempted psoas aspiration site ) dry and clean. Epidermal skin tear Grade 2 Left mid villalta. Neuropathic ulcers tips of both great toes. Dry and covered with scabs.) - Neurologic Present: disoriented, other (Moves all extremities. ) - Musculoskeletal Present: normal posture (Bed confined. ), other - Psychiatric Present: other (Confused. ) Results - Labs 08/31/18 04:05 08/31/18 04:05 Abnormal lab results 08/30/18 08/30/18 08/30/18 Range/Units 12:40 12:40 12:40 WBC 12.4 H (4.5-11.0) K/mcL RBC 3.14 L (4.50-5.90) M/mcL Hgb 10.1 L (13.5-16.5) g/dL Hct 31.0 L (41.0-55.0) % POC Hct (41.0-55.0) % RDW 16.9 H (11.5-14.5) % Gran % (38.0-78.0) % Lymph % (Auto) (15.5-49.0) % Lymph # (Auto) (1.5-4.8) K/mcL Seg Neutrophils % 87 H (38-78) % Lymphocytes % 5 L (15-49) % Anisocytosis 1+ A (NONE SEEN) Ovalocytes Few A (NONE SEEN) PT 28.5 H (11.9-14.5) sec INR 2.7 H (0.9-1.1) Potassium 5.5 H (3.3-5.1) mmol/L POC Chloride (96-108) mmol/L POC BUN (8-23) mg/dl BUN 46 H (8-23) mg/dl Creatinine 1.6 H (0.7-1.2) mg/dl POC Creatinine (0.7-1.2) mg/dl Glucose 120 H (70-105) mg/dL POC Glucose (70-105) mg/dL Total Bilirubin 1.7 H (0.0-1.0) mg/dL Direct Bilirubin (0.0-0.3) mg/dL NT-Pro-B Natriuret Pep (0-450) pg/ml Albumin (3.2-5.2) gm/dL Globulin 4.0 H (2.2-3.7) gm/dL Albumin/Globulin Ratio 0.9 L (1.0-2.3) Urine Protein (NEG) mg/dL Urine Occult Blood (<0.03) mg/dL Urine RBC (0-1) /hpf Amorphous Crystals (0) /hpf Hyaline Casts (0-2) /lpf 08/30/18 08/30/18 08/30/18 Range/Units 12:40 15:00 21:50 WBC (4.5-11.0) K/mcL RBC (4.50-5.90) M/mcL Hgb (13.5-16.5) g/dL Hct (41.0-55.0) % POC Hct 26.0 L (41.0-55.0) % RDW (11.5-14.5) % Gran % (38.0-78.0) % Lymph % (Auto) (15.5-49.0) % Lymph # (Auto) (1.5-4.8) K/mcL Seg Neutrophils % (38-78) % Lymphocytes % (15-49) % Anisocytosis (NONE SEEN) Ovalocytes (NONE SEEN) PT (11.9-14.5) sec INR (0.9-1.1) Potassium (3.3-5.1) mmol/L POC Chloride 110 H (96-108) mmol/L POC BUN 48 H (8-23) mg/dl BUN (8-23) mg/dl Creatinine (0.7-1.2) mg/dl POC Creatinine 1.7 H (0.7-1.2) mg/dl Glucose (70-105) mg/dL POC Glucose 115 H (70-105) mg/dL Total Bilirubin (0.0-1.0) mg/dL Direct Bilirubin (0.0-0.3) mg/dL NT-Pro-B Natriuret Pep 9174.0 H (0-450) pg/ml Albumin (3.2-5.2) gm/dL Globulin (2.2-3.7) gm/dL Albumin/Globulin Ratio (1.0-2.3) Urine Protein 30 A (NEG) mg/dL Urine Occult Blood >=1.0 A (<0.03) mg/dL Urine RBC 37 H (0-1) /hpf Amorphous Crystals Mod A (0) /hpf Hyaline Casts 23 H (0-2) /lpf 08/31/18 08/31/18 08/31/18 Range/Units 04:05 04:05 05:59 WBC (4.5-11.0) K/mcL RBC 2.63 L (4.50-5.90) M/mcL Hgb 8.4 L (13.5-16.5) g/dL Hct 25.8 L (41.0-55.0) % POC Hct (41.0-55.0) % RDW 17.0 H (11.5-14.5) % Gran % 82.8 H (38.0-78.0) % Lymph % (Auto) 7.9 L (15.5-49.0) % Lymph # (Auto) 0.6 L (1.5-4.8) K/mcL Seg Neutrophils % (38-78) % Lymphocytes % (15-49) % Anisocytosis (NONE SEEN) Ovalocytes (NONE SEEN) PT 28.1 H (11.9-14.5) sec INR 2.7 H (0.9-1.1) Potassium (3.3-5.1) mmol/L POC Chloride (96-108) mmol/L POC BUN (8-23) mg/dl BUN 50 H (8-23) mg/dl Creatinine 1.7 H (0.7-1.2) mg/dl POC Creatinine (0.7-1.2) mg/dl Glucose (70-105) mg/dL POC Glucose (70-105) mg/dL Total Bilirubin 1.8 H (0.0-1.0) mg/dL Direct Bilirubin 0.5 H (0.0-0.3) mg/dL NT-Pro-B Natriuret Pep (0-450) pg/ml Albumin 2.9 L (3.2-5.2) gm/dL Globulin (2.2-3.7) gm/dL Albumin/Globulin Ratio 0.9 L (1.0-2.3) Urine Protein (NEG) mg/dL Urine Occult Blood (<0.03) mg/dL Urine RBC (0-1) /hpf Amorphous Crystals (0) /hpf Hyaline Casts (0-2) /lpf Diabetes panel 08/30/18 08/31/18 Range/Units 12:40 04:05 Sodium 140 142 (133-145) mmol/L Potassium 5.5 H 4.6 (3.3-5.1) mmol/L Chloride 106 108 (96-108) mmol/L Carbon Dioxide 22 22 (22-30) mmol/L BUN 46 H 50 H (8-23) mg/dl Creatinine 1.6 H 1.7 H (0.7-1.2) mg/dl Glucose 120 H 89 (70-105) mg/dL Calcium 9.5 9.1 (8.6-10.4) mg/dl AST 25 21 (0-37) U/l ALT 15 12 (0-40) U/l Alkaline Phosphatase 77 58 (39-117) U/L Total Protein 7.5 6.2 (5.9-8.4) gm/dL Albumin 3.5 2.9 L (3.2-5.2) gm/dL Triglycerides 62 (<150) mg/dl Calcium panel 08/30/18 08/31/18 Range/Units 12:40 04:05 Calcium 9.5 9.1 (8.6-10.4) mg/dl Phosphorus 3.7 (2.7-4.5) mg/dL Albumin 3.5 2.9 L (3.2-5.2) gm/dL Pituitary panel 08/30/18 08/31/18 Range/Units 12:40 04:05 Sodium 140 142 (133-145) mmol/L Potassium 5.5 H 4.6 (3.3-5.1) mmol/L Chloride 106 108 (96-108) mmol/L Carbon Dioxide 22 22 (22-30) mmol/L BUN 46 H 50 H (8-23) mg/dl Creatinine 1.6 H 1.7 H (0.7-1.2) mg/dl Glucose 120 H 89 (70-105) mg/dL Calcium 9.5 9.1 (8.6-10.4) mg/dl Adrenal panel 08/30/18 08/31/18 Range/Units 12:40 04:05 Sodium 140 142 (133-145) mmol/L Potassium 5.5 H 4.6 (3.3-5.1) mmol/L Chloride 106 108 (96-108) mmol/L Carbon Dioxide 22 22 (22-30) mmol/L BUN 46 H 50 H (8-23) mg/dl Creatinine 1.6 H 1.7 H (0.7-1.2) mg/dl Glucose 120 H 89 (70-105) mg/dL Calcium 9.5 9.1 (8.6-10.4) mg/dl Total Bilirubin 1.7 H 1.8 H (0.0-1.0) mg/dL AST 25 21 (0-37) U/l ALT 15 12 (0-40) U/l Alkaline Phosphatase 77 58 (39-117) U/L Total Protein 7.5 6.2 (5.9-8.4) gm/dL Albumin 3.5 2.9 L (3.2-5.2) gm/dL All other labs normal. Assessment and Plan (1) Skin tear of left lower leg without complication Assessment: ground level fall with skin tear Left anterior mid 1/3 tibia Stable. Plan: Protective dressing Mepilex foam Status: Acute Priority: Low (2) Toe ulcer Assessment: Arterial / pressure ulcer bilateral medial great toes. DTI Plan: Protective dressings and NON INVASIVE Vascular studies GILBERTO / TBI Status: Chronic Priority: Low Qualifiers: Laterality: unspecified laterality Non-pressure ulcer stage: unspecified no n-pressure ulcer stage Qualified Code(s): L97.509 - Non-pressure chronic ulcer of other part of unspecified foot with unspecified severity (3) Altered mental status Assessment: AMS. Improving. Plan: Medical Management per hospitalist. Status: Acute Priority: Medium Qualifiers: Altered mental status type: somnolence Qualified Code(s): R40.0 - Somnolence (4) Sepsis Assessment: Sepsis syndrome. Likely Multifactorial . Improving on supportive medical management and empiric antibiotics. Plan: Medical management per hospitalist. Status: Acute Priority: Medium Qualifiers: Sepsis type: sepsis due to unspecified organism Qualified Code(s): A41.9 - Sepsis, unspecified organism
[2018-08-31] MEDS: GABAPENTIN 300 MG CAPSULE PO SCH ×3 (09:45→21:14)
[2018-08-31] MEDS: METOPROLOL TARTRATE 5 MG/5 ML VIAL IV PRN ×2 (09:45→14:43)
[2018-08-31] MEDS: ALLOPURINOL 100 MG TABLET PO SCH (09:45)
[2018-08-31] MEDS: VANCOMYCIN 1,500 MG in 0.9 % SODIUM CHLORIDE 500 ML IV SCH (09:45)
[2018-08-31] MEDS: FINASTERIDE 5 MG TABLET PO SCH (09:49)
--- NOTE | 2018-08-31 10:24 | Internal Med Progress Note ---
Medical - PN: Subj Patient information: Note initiated : 08/31/18 at 10:18 am Service Date, if different from initiated Date: [] Patient: Silvio Wallace 88 y/o M admitted on 08/30/18 for Fever, Hypoxia. Chief Complaint: [] Interval history: Mr. Wallace is a 88 year old M lives in assisted living facility presents to the hospital today for evaluation of altered mental status, shortness of breath. The patient also has pain on the left side according to his daughter. The patient at baseline is alert and oriented, a few days ago he started screaming that he is not feeling well and is hurting, there is a history of fall on the left side according to the daughter. The patient was brought to the emergency room a few days ago when he had this episode of screaming, at that time he was diagnosed with cellulitis of his lower extremities, he does have open ulcers on both his toes of the medial aspect. He was prescribed Keflex and discharged back to the facility. The patient's condition as far as cellulitis is concerned and improved however his mental status did not. Today the patient was grossly altered and when the EMS was called his oxygen saturation was 75% on room air. The patient was sent to the emergency room for urgent evaluation. The patient's daughter was by the bedside who provided some history the patient was confused and was unable to provide any meaningful history The maximum temperature in the emergency room was 102.7, heart rate up to 128, blood pressure on presentation was 141 x 76, patient was saturating around 98 to 99% on 8 L of oxygen which was later weaned down to 3 to 4 L. 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 Patient is being admitted to the PCU status, discussed case with radiology plan to have a drain placed today and appropriate cultures will be sent. Patient has already received Zosyn in the ED, and was on Keflex as an outpatient for his cellulitis. Given advanced age, comorbidities the patient has overall poor prognosis, this has been explained to the patients daughter 08/31 Patient seen examined,overnight was confused, needing zyprexa unable to aspirate any pus from the Ct, some fluid sent for cultures pt still febrile and tacycardic, but bp stable ID consulted Pertinent ROS: unable Additional [facility] (Level 3 Only): Medical History (Last Updated 08/27/18 @ 12:23 by Ryland Hoffmann DO) DNR no code (do not resuscitate) (Chronic) On Coumadin for atrial fibrillation (Chronic) Atrial fibrillation (Chronic) Ischemic cardiomyopathy (Chronic) CHF (congestive heart failure) (Chronic) Cardiomegaly (Chronic) LBBB (left bundle branch block) (Chronic) Stage 3 chronic kidney disease (Chronic) Hypertension (Chronic) Closed right hip fracture (Chronic) Anemia of chronic disease (Chronic) Hip fracture, right (Chronic) intermediate current use of anticoagulant therapy (Chronic) Cardiomyopathy (Chronic) Mitral valve regurgitation (Chronic) Bladder trabeculation (Chronic) Retinal hemorrhage (Inactive) Peripheral neuropathy (Chronic) Obstructive uropathy (Chronic) 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) Gout (Chronic) Dysphagia (Chronic) Degenerative arthritis (Chronic) History of colonic polyps (Chronic) Blindness, legal (Chronic) Bladder tumor (Chronic) Situational depression (Chronic) Calcaneal spur, left foot (Chronic) Low back pain (Chronic) Erectile dysfunction (Chronic 05/05/14) Encounter for Health Maintenance Examination in Adult (Chronic) Chondrocalcinosis (Chronic) Altered mental state (Resolved) Aspiration pneumonitis (Resolved) Bloating (Resolved) Bursitis (Resolved) CHF exacerbation (Resolved) Community acquired pneumonia (Resolved) Elbow contusion (Resolved) Elevated liver enzymes (Resolved) Encephalopathy due to infection (Resolved) Epistaxis (Resolved) Eye trauma (Resolved) Fall (Resolved) Fever (Resolved) Fever of unknown origin (Resolved) Fever of unknown origin (Resolved) Gastroenteritis and colitis, viral (Resolved) Head injury (Resolved) Hypercalcemia (Resolved) Hypoxia (Resolved) Joint effusion of lower extremity (Resolved) Left knee pain (Resolved) Left lower lobe pneumonia (Resolved) Pleural effusion (Resolved) Pneumonia (Resolved) Pneumonia (Resolved) Rib fractures (Resolved) Severe sepsis with acute organ dysfunction (Resolved) Sprain of right hip (Resolved) Syncope (Resolved) Upper respiratory infection (Resolved) Urinary tract infection (Resolved) Vertigo (Resolved) - Constitutional Vitals: Vital Signs Temp Pulse Resp BP Pulse Ox 100.9 F H 92 H 27 H 146/100 95 08/31/18 09:15 08/30/18 21:00 08/31/18 08:01 08/31/18 08:01 08/31/18 08:01 Period Temp Pulse Resp BP Sys/Nichole Pulse Ox Last 24 Hr 98.1 F-102.8 F 76-128 17-27 94-186/55-126 93-100 Intake and Output 08/30/18 08/31/18 08/31/18 21:59 05:59 13:59 Intake Total 1750 1165 65 Output Total 200 800 Balance 1550 365 65 Weight 211 lb 14.4 oz Intake & Output: Intake & Output 08/30/18 08/31/18 08/31/18 21:59 05:59 13:59 Intake Total 1750 1165 65 Output Total 200 800 Balance 1550 365 65 Weight 211 lb 14.4 oz Intake: IV 1750 1165 65 Sodium Chloride 0.9% 1,000 ml @ 1050 Wide Open IV B[facility] ONE Rx#: [id number] Zosyn 2.25 gm In Dextrose 5% in 50 100 Water 50 ml @ 100 mls/hr IV Q6H [facility] Rx#:[id number] Zosyn 3.375 gm In Dextrose 5% 50 in Water 50 ml @ 100 mls/hr IV ONCE ONE Rx#:[id number] Vancomycin 1,500 mg In Sodium 500 Chloride 0.9% 500 ml @ 333.3 mls/hr IV Q24H [facility] Rx#: [id number] Oral 0 Output: Urine Catheter Amount 800 CBI Fluid 200 Temp-Probe Bynum 200 Other: Urine Appearance Clear Temp-Probe Bynum Cloudy Urine Color Temp-Probe Bynum Dark Yellow Dark Yellow Exam: Constitutional; febrile, awake, not in distress. does not follow commands, hallucinating Respiratory system: Air Entry equal on both sides, No crackles or wheezing, no rhonchi. CVS- Rate tachycardic rhythm irrregular, S1,S2 heard, no gallop, no rub. Abdomen- Soft nontender abdomen, no organomegaly, no tenderness, no guarding or rigidity, [facility]- AOOx0, moving all extremities, no gross focal deficit noted. Medical - PN: Obj Da - Labs CBC & Chem 7: 08/31/18 04:05 08/31/18 04:05 Labs: Abnormal Lab Results 08/31/18 08/31/18 08/31/18 05:59 04:05 04:05 WBC RBC 2.63 L Hgb 8.4 L Hct 25.8 L POC Hct RDW 17.0 H Gran % 82.8 H Lymph % (Auto) 7.9 L Lymph # (Auto) 0.6 L Seg Neutrophils % Lymphocytes % Anisocytosis Ovalocytes PT 28.1 H INR 2.7 H Potassium POC Chloride POC BUN BUN 50 H Creatinine 1.7 H POC Creatinine Glucose POC Glucose Total Bilirubin 1.8 H Direct Bilirubin 0.5 H NT-Pro-B Natriuret Pep Albumin 2.9 L Globulin Albumin/Globulin Ratio 0.9 L Urine Protein Urine Occult Blood Urine RBC Amorphous Crystals Hyaline Casts 08/30/18 08/30/18 08/30/18 21:50 15:00 12:40 WBC RBC Hgb Hct POC Hct 26.0 L RDW Gran % Lymph % (Auto) Lymph # (Auto) Seg Neutrophils % Lymphocytes % Anisocytosis Ovalocytes PT INR Potassium POC Chloride 110 H POC BUN 48 H BUN Creatinine POC Creatinine 1.7 H Glucose POC Glucose 115 H Total Bilirubin Direct Bilirubin NT-Pro-B Natriuret Pep 9174.0 H Albumin Globulin Albumin/Globulin Ratio Urine Protein 30 A Urine Occult Blood >=1.0 A Urine RBC 37 H Amorphous Crystals Mod A Hyaline Casts 23 H 08/30/18 08/30/18 08/30/18 12:40 12:40 12:40 WBC 12.4 H RBC 3.14 L Hgb 10.1 L Hct 31.0 L POC Hct RDW 16.9 H Gran % Lymph % (Auto) Lymph # (Auto) Seg Neutrophils % 87 H Lymphocytes % 5 L Anisocytosis 1+ A Ovalocytes Few A PT 28.5 H INR 2.7 H Potassium 5.5 H POC Chloride POC BUN BUN 46 H Creatinine 1.6 H POC Creatinine Glucose 120 H POC Glucose Total Bilirubin 1.7 H Direct Bilirubin NT-Pro-B Natriuret Pep Albumin Globulin 4.0 H Albumin/Globulin Ratio 0.9 L Urine Protein Urine Occult Blood Urine RBC Amorphous Crystals Hyaline Casts Meds: Medications Allopurinol (Zyloprim) 200 mg PO DAILY [facility] Last Admin: 08/31/18 09:45 Dose: 200 mg Documented by: Finasteride (Proscar) 5 mg PO DAILY [facility] Last Admin: 08/31/18 09:49 Dose: 5 mg Documented by: Gabapentin (Neurontin) 600 mg PO TID [facility] Last Admin: 08/31/18 09:45 Dose: 600 mg Documented by: Hydromorphone HCl (Dilaudid) 0.5 mg IV Q2HP PRN PRN Reason: PAIN LEVEL > 6 Piperacillin Sod/Tazobactam (Sod 2.25 gm/ Dextrose) 50 mls @ 100 mls/hr IV Q6H [facility]; Protocol Last Infusion: 08/31/18 05:55 Dose: Infused Documented by: Acetaminophen (Ofirmev) 650 mg in 65 mls @ 130 mls/hr IV Q6HP PRN PRN Reason: PAIN/FEVER > 101 Last Infusion: 08/31/18 09:00 Dose: Infused Documented by: Vancomycin HCl 1,500 mg/ (Sodium Chloride) 500 mls @ 333.3 mls/hr IV Q24H [facility] Last Admin: 08/31/18 09:45 Dose: 333.3 mls/hr Documented by: Metoprolol Tartrate (Lopressor) 5 mg IV Q4HP PRN PRN Reason: Tachyarrhythmias Last Admin: 08/31/18 09:45 Dose: 5 mg Documented by: Naloxone HCl (Narcan) 0.1 mg IV Q2MIN PRN PRN Reason: Opiate Reversal Nitroglycerin (Nitrostat) 0.4 mg SL Q5M PRN PRN Reason: Chest Pain Olanzapine (Zyprexa) 5 mg IM ONCE [facility] Last Admin: 08/31/18 01:13 Dose: Not Given Documented by: Omeprazole (Prilosec) 20 mg PO QAMAC [facility] Last Admin: 08/31/18 09:45 Dose: 20 mg Documented by: Ondansetron HCl (Zofran) 4 mg IV Q4-6HP PRN PRN Reason: Nausea And Vomiting Sodium Chloride (Saline Flush) 10 ml IV Q8 [facility] Last Admin: 08/31/18 05:26 Dose: 10 ml Documented by: Vancomycin HCl (Vancomycin Per Pharmacy) 1 order IV [facility]; Protocol Warfarin Sodium (Coumadin Per Pharmacy) 1 order PO [facility] Medical - PN: A/P - Time Spent With Patient Total time spent is greater than 50% in coordination of care (as documented) at patient's floor/unit and/or counseling patient: - Narrative A/P Narrative: A/P Psoas Abscess Sepsis Septic Encephalopathy Anemia, of Chr Disease Anticoagulation on coumadin, Atrial fibrillation Hyperkalemia Chronic Kidney Disease h/o Congestive heart failure Gout Toe Ulcers Plan continue to monitor in PCP Ct guided psoas abscess aspiration not successful. will reverse anticoagulation if bleeding not being controlled IV vancomycin and zosy, swtich to cefepime as per ID send fluid for culture, await results hold blood pressure medications, bp is stable, resume once bp remains stable x 24 hrs IV fluids trend renal function, monitor urine output Resume home medications as appropriate. Wound care consult Infectious disease consult DVT on coumadin with therapeutic INR DNR code status, to verify POST Medical - PN: Qual - VTE Deep Vein Thrombosis/Pulmonary Embolism Present on Admission: No
[2018-08-31] MEDS: risperiDONE 0.25 MG TABLET PO SCH ×2 (10:27→21:15)
[2018-08-31] MEDS ORDERED: CEFEPIME 1 GM VIAL IV SCH (10:30)
[2018-08-31] MEDS ORDERED: WARFARIN 2.5 MG TABLET PO ONE (14:00)
[2018-08-31] MEDS ORDERED: IBUPROFEN 200 MG TABLET PO ONE (14:53)
[2018-08-31] MEDS ORDERED: THIAMINE 100 MG in 0.9 % SODIUM CHLORIDE 50 ML IV ONE (15:00)
[2018-08-31] MEDS: LACTATED RINGERS 1,000 ML IV SCH (15:16)
[2018-08-31 16:04] LABS: Basophils # (Auto) 0 K/mcL (0.0-0.3); Basophils % (Auto) 0 % (0.0-2.0); Eosinophils # (Auto) 0 K/mcL (0.0-0.7); Eosinophils % (Auto) 0.4 % (0.0-7.0); Granulocytes % (Auto) 84.3 % (38.0-78.0); Lymphocytes # (Auto) 0.5 K/mcL (1.5-4.8); Lymphocytes % (Auto) 6.5 % (15.5-49.0); Mean Cell Volume 97.8 fL (80.0-100.0); Mean Corpuscular HGB Conc 32.3 g/dL (31.0-36.0); Monocytes # (Auto) 0.7 K/mcL (0.1-0.9); Monocytes % (Auto) 8.8 % (1.0-12.0); Platelet Count 207 K/mcL (140-440); RBC 2.76 M/mcL (4.50-5.90); Red Cell Distribution Width 17.3 % (11.5-14.5)
[2018-08-31 16:21] LABS: ALT/SGPT 14 U/l (0-40); Albumin 2.9 gm/dL (3.2-5.2); Albumin/Globulin Ratio 0.7 (1.0-2.3); Alkaline Phosphatase 67 U/L (39-117); Blood Urea Nitrogen 51 mg/dl (8-23)
--- NOTE | 2018-08-31 16:55 | Infectious Disease Consult ---
History of Present Illness Patient information: Note initiated : 08/31/18 at 4:51 pm Service Date, if different from initiated Date: [] Patient: Silvio Wallace 88 y/o M admitted on 08/30/18 for Fever, Hypoxia. Chief Complaint: [] Consult date: 08/31/18 Requesting Physician: Andres Gonzalez Reason for Consult: possible left sided Psoas abscess Chief complaint: pt is confused History of present illness: HPI obtained from chart review as pt is confused and has baseline dementia 88 year old man living in an assisted living facility was admitted to the hospital on 08/30 with c/o altered mental status, shortness of breath. The patient also has pain on the left side according to his daughter. The patient at baseline is alert and oriented, a few days ago he started screaming that he is not feeling well and is hurting, there is a history of fall on the left side according to the daughter. The patient was brought to the emergency room a few days ago when he had this episode of screaming, at that time he was diagnosed with cellulitis of his lower extremities, he does have open ulcers on both his toes of the medial aspect. He was prescribed Keflex and discharged back to the facility. The patient's condition as far as cellulitis is concerned had improved however his mental status did not. The patient was grossly altered at admission and when the EMS was called his oxygen saturation was 75% on room air. The patient was sent to the emergency room for urgent evaluation. The patient's daughter was by the bedside who provided some history the patient was confused and was unable to provide any meaningful history The maximum temperature in the emergency room was 102.7, heart rate up to 128, blood pressure on presentation was 141 x 76, patient was saturating around 98 to 99% on 8 L of oxygen which was later weaned down to 3 to 4 L. Labs showed leukocytosis of 12,000, hemoglobin 10 INR 2.7, lactic acid 1.6 potassium 5.5 creatinine 1.6 procalcitonin 0.8, UA was negative for infection, chest abdomen pelvis CT was done which showed likely inflammation of illio-psoas muscle on the left side [?possible psoas abscess]. Patient is being admitted to the ICU status, discussed case with radiology plan to have a drain placed today and appropriate cultures will be sent. Patient has already received Zosyn in the ED, and was on Keflex as an outpatient for his cellulitis. Given advanced age, comorbidities the patient has overall poor prognosis, this has been explained to the patients daughter. IR attempted ID was consulted on 08/30 to help with management of possible Psoas abscess. At time of visit, pt was unable to provide history. He denied any back pain, diarrh ea. Per nursing the UOP was 50 ml/hr, pt had a temp of 100.8F, RR 24, BP 94/55 (MAP 68). He had been on IV Vanc and IV Zosyn since admission. Later in the day, his temp was around 101F, with worsening RR and BP. He underwent LP after admin of FFPs, and recieved IVF to help stablize BP. Review of Systems ROS unobtainable: due to mental status Past History Past family history: not pertinent to current presentation Past social history: lives in an assisted living facility Medications and Allergies Home Medications Medication Instructions Recorded Confirmed Type Acetaminophen [Tylenol Extra 1,000 mg PO HSP PRN 05/19/18 08/30/18 History Strength] Acetaminophen [Tylenol] 650 mg PO Q4HP PRN 05/19/18 08/30/18 History Docusate Sodium [Colace] 100 mg PO BID 05/19/18 08/30/18 History Fexofenadine [Felicia] 180 mg PO DAILY 05/19/18 08/30/18 History Finasteride [Proscar] 5 mg PO DAILY 05/19/18 08/30/18 History Furosemide [Lasix] 40 mg PO BIDD 05/19/18 08/30/18 History Lactobacill 46/B.animal/Inulin 1 each PO HS 05/19/18 08/30/18 History [Probiotic-10 10 Bill Cell Cap] Loperamide HCl [Loperamide] 2 mg PO PRN PRN 05/19/18 08/30/18 History Magnesium Hydroxide [Milk of 30 ml PO DAILYP PRN 05/19/18 08/30/18 History Magnesia] Multivit-Min/FA/Lycopen/Lutein 1 tab PO DAILY 05/19/18 08/30/18 History [Sentry Senior Tablet] Omeprazole [Prilosec] 20 mg PO QAMAC 05/19/18 08/30/18 History Spironolactone [Aldactone] 12.5 mg PO DAILY 05/19/18 08/30/18 History Vitamin D3 2,000 unit PO DAILY 05/19/18 08/30/18 History Warfarin Sodium [Jantoven] 5 mg PO DAILY 05/19/18 08/30/18 History allopurinol 100 mg tablet 200 mg PO DAILY #90 tab 06/11/18 08/30/18 Rx losartan 100 mg tablet 50 mg PO DAILY #90 tab 06/11/18 08/30/18 Rx gabapentin 300 mg capsule 600 mg PO TID #180 cap 06/30/18 08/30/18 Rx ipratropium bromide 0.03 % nasal 2 spray INTRANASAL BID #30 ml 07/14/18 08/30/18 Rx spray potassium chloride ER 10 mEq 20 meq PO QAMCC #90 tab 07/15/18 08/30/18 Rx tablet,extended release Mupirocin Oint 2% [Bactroban Oint 1 dose TOPICAL TID #1 tube 08/24/18 08/30/18 Rx 2%] Nitroglycerin 0.4 mg SL Q5M PRN #25 tab.subl 08/27/18 08/30/18 Rx Bisacodyl [Dulcolax] 10 mg ID DAILYP PRN 08/30/18 08/30/18 History Calcium Carbonate [Tums] 1,000 mg CHEWED Q4HP PRN 08/30/18 08/30/18 History Metoprolol Succinate [Toprol Xl] 50 mg PO BID 08/30/18 08/30/18 History Nystatin Crm 1 dose TOPICAL BIDP PRN 08/30/18 08/30/18 History Allergies Allergy/AdvReac Type Severity Reaction Status Date / Time prednisone Allergy Unknown Unknown Verified 07/19/18 10:38 codeine AdvReac Mild Nausea Verified 07/19/18 10:38 hydrocodone AdvReac Mild Hallucinati Verified 07/19/18 10:38 ng loratadine [From Claritin] AdvReac Mild Hallucinati Verified 07/19/18 10:38 ng tramadol AdvReac Mild Hallucinati Verified 07/19/18 10:38 ng trazodone AdvReac Mild Hallucinati Verified 07/19/18 10:38 ng azithromycin [From Zithromax] AdvReac Unknown unknown Verified 07/19/18 10:38 antidepressants Allergy Unknown Unknown Uncoded 07/13/18 14:46 narcotics Allergy Unknown Unknown Uncoded 07/13/18 14:46 quinidine gluconate Allergy Unknown Unknown Uncoded 07/13/18 14:46 Physical Examination Vital signs: Temp Pulse Resp BP Pulse Ox 39.0 C H 130 H 24 H 94/55 93 08/31/18 16:07 08/31/18 08:00 08/31/18 16:07 08/31/18 16:02 08/31/18 16:07 General appearance: no acute distress, other (confused but awake, not oriented t o place and time and person) Eyes pulmonary: nonicteric ENT: other (has oral thrush) Auscultation: bilateral: clear Cardiovascular: other (s1 s2 normal, no murmurs auscultated) Gastrointestinal: normoactive bowel sounds Extremities: no edema, other (has few superficial bruises) unable to assess due to mental status, other (left pupil not reactive) Results - Laboratory Findings CBC and BMP: 09/01/18 04:30 09/01/18 04:30 PT/INR, D-dimer PT 28.1 sec (11.9-14.5) H 08/31/18 05:59 INR 2.7 (0.9-1.1) H 08/31/18 05:59 Abnormal lab findings: Abnormal Labs 08/30/18 08/30/18 08/30/18 12:40 12:40 12:40 WBC 12.4 H RBC 3.14 L Hgb 10.1 L Hct 31.0 L POC Hct RDW 16.9 H Gran % Lymph % (Auto) Lymph # (Auto) Seg Neutrophils % 87 H Lymphocytes % 5 L Anisocytosis 1+ A Ovalocytes Few A PT 28.5 H INR 2.7 H Potassium 5.5 H POC Chloride Carbon Dioxide POC BUN BUN 46 H Creatinine 1.6 H POC Creatinine Glucose 120 H POC Glucose Total Bilirubin 1.7 H Direct Bilirubin NT-Pro-B Natriuret Pep Albumin Globulin 4.0 H Albumin/Globulin Ratio 0.9 L Urine Protein Urine Occult Blood Urine RBC Amorphous Crystals Hyaline Casts 08/30/18 08/30/18 08/30/18 12:40 15:00 21:50 WBC RBC Hgb Hct POC Hct 26.0 L RDW Gran % Lymph % (Auto) Lymph # (Auto) Seg Neutrophils % Lymphocytes % Anisocytosis Ovalocytes PT INR Potassium POC Chloride 110 H Carbon Dioxide POC BUN 48 H BUN Creatinine POC Creatinine 1.7 H Glucose POC Glucose 115 H Total Bilirubin Direct Bilirubin NT-Pro-B Natriuret Pep 9174.0 H Albumin Globulin Albumin/Globulin Ratio Urine Protein 30 A Urine Occult Blood >=1.0 A Urine RBC 37 H Amorphous Crystals Mod A Hyaline Casts 23 H 08/31/18 08/31/18 08/31/18 04:05 04:05 05:59 WBC RBC 2.63 L Hgb 8.4 L Hct 25.8 L POC Hct RDW 17.0 H Gran % 82.8 H Lymph % (Auto) 7.9 L Lymph # (Auto) 0.6 L Seg Neutrophils % Lymphocytes % Anisocytosis Ovalocytes PT 28.1 H INR 2.7 H Potassium POC Chloride Carbon Dioxide POC BUN BUN 50 H Creatinine 1.7 H POC Creatinine Glucose POC Glucose Total Bilirubin 1.8 H Direct Bilirubin 0.5 H NT-Pro-B Natriuret Pep Albumin 2.9 L Globulin Albumin/Globulin Ratio 0.9 L Urine Protein Urine Occult Blood Urine RBC Amorphous Crystals Hyaline Casts 08/31/18 08/31/18 15:14 15:14 WBC RBC 2.76 L Hgb 8.7 L Hct 27.0 L POC Hct RDW 17.3 H Gran % 84.3 H Lymph % (Auto) 6.5 L Lymph # (Auto) 0.5 L Seg Neutrophils % Lymphocytes % Anisocytosis Ovalocytes PT INR Potassium POC Chloride Carbon Dioxide 19 L POC BUN BUN 51 H Creatinine 1.7 H POC Creatinine Glucose 124 H POC Glucose Total Bilirubin 1.8 H Direct Bilirubin NT-Pro-B Natriuret Pep Albumin 2.9 L Globulin 3.9 H Albumin/Globulin Ratio 0.7 L Urine Protein Urine Occult Blood Urine RBC Amorphous Crystals Hyaline Casts Microbiology: Microbiology 08/30/18 12:20 Blood Blood Culture - Preliminary 08/30/18 12:40 Blood Blood Culture - Preliminary 08/30/18 16:16 Abdomen - Lower Gram Stain - Final 08/30/18 16:16 Abdomen - Lower Abscess Culture - Preliminary 08/30/18 17:45 Nose MRSA (PCR) - Final Assessment and Plan - Narrative A/P Narrative: A: 1. Delirium 2. Sepsis: - Left psoas muscle inflammation with concerns for underlying infection - meets qSOFA screening criteria of 3 (tachypnea, hypotension, altered mental status). SOFA score: >2 [assuming PaO2/FiO2 ratio to be normal, it is 8) 3. High INR with initial trauma to left side of body: sec to Coumadin - Lt Psoas muscle swelling with concerns for underlying hematoma - r/o ongoing bleeding post procedure Recommendations: - Continue IV vancomycin per pharmacy assisted dosing. - Switch cefepime to IV Zosyn 3.375 gm q6 hrs (current Cr Cl is 41). Change to 2.25 gm q6 if Cr Cl is 20-40 - Consider LP with CSF sent for GS, C/S, cell count, glucose, protein - agree with repeat blood Cx - CXR to r/o any new infiltrates, as pt is tachypneic - given pt's higher risk for retroperitoneal bleed post-procedure, repeat CT abd/pelvis might be considered will follow Matt Glynn MD Infectious diseases
[2018-08-31] MEDS ORDERED: fentaNYL 100 MCG/2 ML VIAL IV ONE ×3 (17:46→18:02)
[2018-08-31] MEDS ORDERED: MIDAZOLAM 2 MG/2 ML VIAL IV ONE (17:46)
[2018-08-31] MEDS ORDERED: LORazepam 2 MG/ML VIAL IV ONE (17:59)
[2018-08-31] MEDS ORDERED: 0.9 % SODIUM CHLORIDE 250 ML IV SCH (18:00)
[2018-08-31] MEDS ORDERED: LORazepam 2 MG/ML VIAL ONE (18:03)
--- NOTE | 2018-08-31 18:13 | General Surgery Consult Note ---
History of Present Illness Patient information: Note initiated : 08/31/18 at 6:11 pm Service Date, if different from initiated Date: [] Patient: Silvio Wallace 88 y/o M admitted on 08/30/18 for Fever, Hypoxia. Chief Complaint: [] Medications and Allergies Home Medications Medication Instructions Recorded Confirmed Type Acetaminophen [Tylenol Extra 1,000 mg PO HSP PRN 05/19/18 08/30/18 History Strength] Acetaminophen [Tylenol] 650 mg PO Q4HP PRN 05/19/18 08/30/18 History Docusate Sodium [Colace] 100 mg PO BID 05/19/18 08/30/18 History Fexofenadine [Felicia] 180 mg PO DAILY 05/19/18 08/30/18 History Finasteride [Proscar] 5 mg PO DAILY 05/19/18 08/30/18 History Furosemide [Lasix] 40 mg PO BIDD 05/19/18 08/30/18 History Lactobacill 46/B.animal/Inulin 1 each PO HS 05/19/18 08/30/18 History [Probiotic-10 10 Bill Cell Cap] Loperamide HCl [Loperamide] 2 mg PO PRN PRN 05/19/18 08/30/18 History Magnesium Hydroxide [Milk of 30 ml PO DAILYP PRN 05/19/18 08/30/18 History Magnesia] Multivit-Min/FA/Lycopen/Lutein 1 tab PO DAILY 05/19/18 08/30/18 History [Sentry Senior Tablet] Omeprazole [Prilosec] 20 mg PO QAMAC 05/19/18 08/30/18 History Spironolactone [Aldactone] 12.5 mg PO DAILY 05/19/18 08/30/18 History Vitamin D3 2,000 unit PO DAILY 05/19/18 08/30/18 History Warfarin Sodium [Jantoven] 5 mg PO DAILY 05/19/18 08/30/18 History allopurinol 100 mg tablet 200 mg PO DAILY #90 tab 06/11/18 08/30/18 Rx losartan 100 mg tablet 50 mg PO DAILY #90 tab 06/11/18 08/30/18 Rx gabapentin 300 mg capsule 600 mg PO TID #180 cap 06/30/18 08/30/18 Rx ipratropium bromide 0.03 % nasal 2 spray INTRANASAL BID #30 ml 07/14/18 08/30/18 Rx spray potassium chloride ER 10 mEq 20 meq PO QAMCC #90 tab 07/15/18 08/30/18 Rx tablet,extended release Mupirocin Oint 2% [Bactroban Oint 1 dose TOPICAL TID #1 tube 08/24/18 08/30/18 Rx 2%] Nitroglycerin 0.4 mg SL Q5M PRN #25 tab.subl 08/27/18 08/30/18 Rx Bisacodyl [Dulcolax] 10 mg MI DAILYP PRN 08/30/18 08/30/18 History Calcium Carbonate [Tums] 1,000 mg CHEWED Q4HP PRN 08/30/18 08/30/18 History Metoprolol Succinate [Toprol Xl] 50 mg PO BID 08/30/18 08/30/18 History Nystatin Crm 1 dose TOPICAL BIDP PRN 08/30/18 08/30/18 History Allergies Allergy/AdvReac Type Severity Reaction Status Date / Time prednisone Allergy Unknown Unknown Verified 07/19/18 10:38 codeine AdvReac Mild Nausea Verified 07/19/18 10:38 hydrocodone AdvReac Mild Hallucinati Verified 07/19/18 10:38 ng loratadine [From Claritin] AdvReac Mild Hallucinati Verified 07/19/18 10:38 ng tramadol AdvReac Mild Hallucinati Verified 07/19/18 10:38 ng trazodone AdvReac Mild Hallucinati Verified 07/19/18 10:38 ng azithromycin [From Zithromax] AdvReac Unknown unknown Verified 07/19/18 10:38 antidepressants Allergy Unknown Unknown Uncoded 07/13/18 14:46 narcotics Allergy Unknown Unknown Uncoded 07/13/18 14:46 quinidine gluconate Allergy Unknown Unknown Uncoded 07/13/18 14:46 Exam Temp Pulse Resp BP Pulse Ox 101.4 F H 95 H 19 94/55 92 08/31/18 17:00 08/31/18 14:00 08/31/18 17:00 08/31/18 17:00 08/31/18 17:00 Results - Labs 08/31/18 15:14 08/31/18 15:14 Abnormal lab results 08/30/18 08/31/18 08/31/18 Range/Units 21:50 04:05 04:05 RBC 2.63 L (4.50-5.90) M/mcL Hgb 8.4 L (13.5-16.5) g/dL Hct 25.8 L (41.0-55.0) % POC Hct 26.0 L (41.0-55.0) % RDW 17.0 H (11.5-14.5) % Gran % 82.8 H (38.0-78.0) % Lymph % (Auto) 7.9 L (15.5-49.0) % Lymph # (Auto) 0.6 L (1.5-4.8) K/mcL PT (11.9-14.5) sec INR (0.9-1.1) POC Chloride 110 H (96-108) mmol/L Carbon Dioxide (22-30) mmol/L POC BUN 48 H (8-23) mg/dl BUN 50 H (8-23) mg/dl Creatinine 1.7 H (0.7-1.2) mg/dl POC Creatinine 1.7 H (0.7-1.2) mg/dl Glucose (70-105) mg/dL POC Glucose 115 H (70-105) mg/dL Total Bilirubin 1.8 H (0.0-1.0) mg/dL Direct Bilirubin 0.5 H (0.0-0.3) mg/dL Albumin 2.9 L (3.2-5.2) gm/dL Globulin (2.2-3.7) gm/dL Albumin/Globulin Ratio 0.9 L (1.0-2.3) 08/31/18 08/31/18 08/31/18 Range/Units 05:59 15:14 15:14 RBC 2.76 L (4.50-5.90) M/mcL Hgb 8.7 L (13.5-16.5) g/dL Hct 27.0 L (41.0-55.0) % POC Hct (41.0-55.0) % RDW 17.3 H (11.5-14.5) % Gran % 84.3 H (38.0-78.0) % Lymph % (Auto) 6.5 L (15.5-49.0) % Lymph # (Auto) 0.5 L (1.5-4.8) K/mcL PT 28.1 H (11.9-14.5) sec INR 2.7 H (0.9-1.1) POC Chloride (96-108) mmol/L Carbon Dioxide 19 L (22-30) mmol/L POC BUN (8-23) mg/dl BUN 51 H (8-23) mg/dl Creatinine 1.7 H (0.7-1.2) mg/dl POC Creatinine (0.7-1.2) mg/dl Glucose 124 H (70-105) mg/dL POC Glucose (70-105) mg/dL Total Bilirubin 1.8 H (0.0-1.0) mg/dL Direct Bilirubin (0.0-0.3) mg/dL Albumin 2.9 L (3.2-5.2) gm/dL Globulin 3.9 H (2.2-3.7) gm/dL Albumin/Globulin Ratio 0.7 L (1.0-2.3) Diabetes panel 08/31/18 08/31/18 Range/Units 04:05 15:14 Sodium 142 139 (133-145) mmol/L Potassium 4.6 4.7 (3.3-5.1) mmol/L Chloride 108 105 (96-108) mmol/L Carbon Dioxide 22 19 L (22-30) mmol/L BUN 50 H 51 H (8-23) mg/dl Creatinine 1.7 H 1.7 H (0.7-1.2) mg/dl Glucose 89 124 H (70-105) mg/dL Calcium 9.1 9.2 (8.6-10.4) mg/dl AST 21 26 (0-37) U/l ALT 12 14 (0-40) U/l Alkaline Phosphatase 58 67 (39-117) U/L Total Protein 6.2 6.8 (5.9-8.4) gm/dL Albumin 2.9 L 2.9 L (3.2-5.2) gm/dL Triglycerides 62 (<150) mg/dl Calcium panel 08/31/18 08/31/18 Range/Units 04:05 15:14 Calcium 9.1 9.2 (8.6-10.4) mg/dl Phosphorus 3.7 (2.7-4.5) mg/dL Albumin 2.9 L 2.9 L (3.2-5.2) gm/dL Pituitary panel 08/31/18 08/31/18 Range/Units 04:05 15:14 Sodium 142 139 (133-145) mmol/L Potassium 4.6 4.7 (3.3-5.1) mmol/L Chloride 108 105 (96-108) mmol/L Carbon Dioxide 22 19 L (22-30) mmol/L BUN 50 H 51 H (8-23) mg/dl Creatinine 1.7 H 1.7 H (0.7-1.2) mg/dl Glucose 89 124 H (70-105) mg/dL Calcium 9.1 9.2 (8.6-10.4) mg/dl Adrenal panel 08/31/18 08/31/18 Range/Units 04:05 15:14 Sodium 142 139 (133-145) mmol/L Potassium 4.6 4.7 (3.3-5.1) mmol/L Chloride 108 105 (96-108) mmol/L Carbon Dioxide 22 19 L (22-30) mmol/L BUN 50 H 51 H (8-23) mg/dl Creatinine 1.7 H 1.7 H (0.7-1.2) mg/dl Glucose 89 124 H (70-105) mg/dL Calcium 9.1 9.2 (8.6-10.4) mg/dl Total Bilirubin 1.8 H 1.8 H (0.0-1.0) mg/dL AST 21 26 (0-37) U/l ALT 12 14 (0-40) U/l Alkaline Phosphatase 58 67 (39-117) U/L Total Protein 6.2 6.8 (5.9-8.4) gm/dL Albumin 2.9 L 2.9 L (3.2-5.2) gm/dL All other labs normal. Assessment and Plan (1) Hematoma of right iliopsoas muscle Status: Acute (2) Anemia due to acute blood loss The blood loss is acute and is probably related to the iliopsoas hematoma. With his advanced age and has evidence of ischemic heart disease, would consider transfusion up to hemoglobin of at least 9 if he should drift down further. This would also increase his total intravascular volume and improve cardiac output which will reduce the work load of the heart. Status: Acute (3) manager terminal current use of anticoagulant therapy Discontinue warfarin therapy. Transfuse at least 2 units fresh frozen plasma. Vitamin K 10 mg subcutaneous every 12 hours 2 doses. Follow-up PT/INR tomorrow. Status: Chronic (4) Atrial fibrillation Status: Chronic Comment: Chronic anticoagulation Qualifiers: (5) Ischemic cardiomyopathy Status: Chronic (6) Stage 3 chronic kidney disease Status: Chronic
[2018-08-31] MEDS: PIPERACILLIN SODIUM/TAZOBACTAM 3.375 GM in DEXTROSE 5% IN WATER 50 ML IV SCH (18:53)
--- NOTE | 2018-08-31 19:10 | XRay Report ---
CLINICAL INFORMATION: Altered mental status. Possible sepsis. TECHNIQUE: The patient was placed in a prone position on the fluoroscopy table. A lumbar puncture was performed at the L2-3 level using a 22-gauge spinal needle. 10 mL clear CSF was removed and sent to the laboratory for analysis. 31 seconds fluoroscopy utilized. IMPRESSION: Fluoroscopic guided lumbar puncture Interpreted and Authenticated by: Bar Garcia 08/31/18
[2018-08-31] MEDS ORDERED: PHYTONADIONE 10 MG/ML AMPUL PO ONE (19:15)
[2018-08-31 20:16] LABS: Appearance,CSF CLEAR; Nucleated Cells,CSF 6 /cumm (0-5); Red Blood Cell,CSF 0 /cumm (0-1)
[2018-08-31 20:31] LABS: Appearance,CSF CLEAR; Nucleated Cells,CSF 9 /cumm (0-5); Red Blood Cell,CSF 11 /cumm (0-1)
[2018-08-31 20:42] LABS: Lymphocytes,CSF 82 % (40-80); Total Cell Ct,CSF 100
[2018-08-31] MEDS ORDERED: FUROSEMIDE 40 MG/4 ML VIAL IV ONE (20:51)
[2018-08-31] MEDS ORDERED: PHYTONADIONE 10 MG/ML AMPUL SQ SCH (21:00)
[2018-08-31] MEDS ORDERED: PHYTONADIONE 10 MG/ML AMPUL SQ ONE (21:01)
[2018-08-31 21:13] LABS: Glucose,CSF 73 mg/dL (45-75)
[2018-08-31] MEDS ORDERED: NOREPINEPHRINE BITARTRATE 4 MG/4 ML VIAL IV ONE (22:15)
[2018-08-31] MEDS: NOREPINEPHRINE BITARTRATE 16 MG in 0.9 % SODIUM CHLORIDE 234 ML IV SCH (22:21)
[2018-08-31] MEDS: 0.9 % SODIUM CHLORIDE 250 ML IV SCH (22:22)
[2018-09-01] MEDS: PIPERACILLIN SODIUM/TAZOBACTAM 3.375 GM in DEXTROSE 5% IN WATER 50 ML IV SCH ×2 (00:05→05:03)
[2018-09-01] MEDS ORDERED: 0.9 % SODIUM CHLORIDE 250 ML IV ONE (01:28)
[2018-09-01] MEDS: LACTATED RINGERS 1,000 ML IV SCH ×2 (03:23→15:53)
[2018-09-01] MEDS: 0.9 % SODIUM CHLORIDE 10 ML SYRINGE IV SCH ×7 (05:03→20:05)
[2018-09-01 06:34] LABS: Basophils # (Auto) 0 K/mcL (0.0-0.3); Basophils % (Auto) 0.1 % (0.0-2.0); Eosinophils # (Auto) 0.1 K/mcL (0.0-0.7); Granulocytes % (Auto) 79.2 % (38.0-78.0); Lymphocytes % (Auto) 11.1 % (15.5-49.0); Mean Cell Volume 99.7 fL (80.0-100.0); Mean Corpuscular HGB Conc 31.6 g/dL (31.0-36.0); Monocytes # (Auto) 0.8 K/mcL (0.1-0.9); Monocytes % (Auto) 8.6 % (1.0-12.0); Platelet Count 207 K/mcL (140-440); RBC 3.37 M/mcL (4.50-5.90); Red Cell Distribution Width 17.4 % (11.5-14.5)
[2018-09-01 06:47] LABS: ALT/SGPT 14 U/l (0-40); Albumin 2.9 gm/dL (3.2-5.2); Albumin/Globulin Ratio 0.8 (1.0-2.3); Alkaline Phosphatase 66 U/L (39-117); Bilirubin,Direct 0.6 mg/dL (0.0-0.3); Blood Urea Nitrogen 56 mg/dl (8-23); Gamma Glutamyl Transpeptidase 37 U/L (8-61); Uric Acid 6.3 mg/dL (2.5-8.0)
[2018-09-01] MEDS ORDERED: PHYTONADIONE 10 MG/ML AMPUL SQ ONE (07:24)
[2018-09-01] MEDS: OMEPRAZOLE 20 MG CAPSULE PO SCH (07:53)
[2018-09-01] MEDS ORDERED: PHYTONADIONE 10 MG/ML AMPUL PO ONE (08:02)
[2018-09-01] MEDS: THIAMINE 100 MG in 0.9 % SODIUM CHLORIDE 50 ML IV SCH (08:03)
[2018-09-01] MEDS: ALLOPURINOL 100 MG TABLET PO SCH (08:08)
[2018-09-01] MEDS: risperiDONE 0.25 MG TABLET PO SCH ×2 (08:08→20:04)
[2018-09-01] MEDS: FINASTERIDE 5 MG TABLET PO SCH (08:08)
[2018-09-01] MEDS: GABAPENTIN 300 MG CAPSULE PO SCH ×3 (08:08→20:05)
[2018-09-01] MEDS: ACETAMINOPHEN 650 MG/65 ML BOTTLE IV PRN ×3 (08:55→21:07)
[2018-09-01] MEDS ORDERED: DIGOXIN 500 MCG/2 ML AMPUL IV ONE (10:06)
--- NOTE | 2018-09-01 10:08 | Infectious Disease Prog Note ---
Subjective Patient information: Note initiated : 09/01/18 at 9:54 am Service Date, if different from initiated Date: [] Patient: Silvio Wallace 88 y/o M admitted on 08/30/18 for Fever, Hypoxia. Chief Complaint: [] Interval history: Pt continues to have intermittent fevers. Bp stable after his Metoprolol was stopped. No n/v, diarrhea per nursing. Pt seems short of breath with breathing efforts. Confused. Denied any pain. Objective Objective Narrative: awake but confused, some of the speech is incomprehensible and not relevant to the conversation showed me his tongue on verbal command no thrush chest has bibasilar crackles s1 s2 normal, tachycardic bs ++, bowel is stiff, non tender has superficial bruises over legs, and feet ? tophaceous swellings over left earlobe - Vital Signs Vital signs: Vital Signs Temp Pulse Pulse Resp BP Pulse Ox 09/01/18 09:00 38.3 C H 26 H 129/89 92 09/01/18 08:55 38.1 C H 09/01/18 08:00 37.8 C H 21 141/87 95 09/01/18 07:00 37.0 C 20 135/80 95 09/01/18 06:30 36.8 C 19 135/72 93 09/01/18 06:00 36.8 C 80 21 119/68 93 09/01/18 05:37 36.7 C 82 16 105/64 92 09/01/18 05:30 36.7 C 92 H 17 104/62 92 09/01/18 05:23 36.7 C 83 16 114/73 92 09/01/18 05:00 36.6 C 23 H 141/82 09/01/18 04:53 36.5 C 18 151/83 09/01/18 04:01 36.1 C 78 16 121/77 96 09/01/18 03:31 36.1 C L 80 15 114/69 95 09/01/18 03:01 36.0 C L 68 15 109/69 95 09/01/18 02:31 35.9 C L 57 L 15 118/62 95 09/01/18 02:01 35.9 C L 72 14 113/69 94 09/01/18 02:00 96 09/01/18 01:46 35.9 C L 77 16 110/70 93 05/01/19 01:31 35.9 C L 71 14 110/69 94 09/01/18 01:16 35.9 C L 66 13 109/65 92 09/01/18 01:01 35.9 C L 66 14 121/70 94 09/01/18 00:46 35.9 C L 68 14 109/63 93 09/01/18 00:31 35.9 C L 72 14 108/80 92 09/01/18 00:17 35.9 C L 66 14 116/81 94 09/01/18 00:01 35.9 C L 36 L 13 123/64 95 08/31/18 23:46 35.9 C L 76 14 103/58 94 08/31/18 23:31 35.9 C L 65 14 88/57 93 08/31/18 23:16 35.9 C L 71 14 101/56 93 08/31/18 23:01 35.9 C L 67 13 92/60 96 08/31/18 22:56 35.9 C L 70 13 99/64 96 08/31/18 22:51 35.9 C L 63 13 104/54 96 08/31/18 22:46 35.9 C L 50 L 12 113/69 96 08/31/18 22:42 35.9 C L 52 L 13 119/70 97 08/31/18 22:36 35.9 C L 61 13 123/82 98 08/31/18 22:32 35.9 C L 65 13 99/61 96 08/31/18 22:26 35.9 C L 56 L 13 84/54 96 08/31/18 22:16 35.9 C L 62 13 72/49 96 08/31/18 22:05 35.9 C L 62 13 90/54 99 08/31/18 22:01 35.9 C L 55 L 14 78/44 97 08/31/18 21:48 36.0 C L 61 14 91/52 98 08/31/18 21:46 36.0 C L 46 L 14 73/49 97 08/31/18 21:31 36.1 C L 65 15 82/53 97 08/31/18 21:16 36.2 C 71 12 80/57 94 08/31/18 21:02 36.3 C 80 15 80/64 95 08/31/18 20:46 36.3 C 74 13 95/60 95 08/31/18 20:45 36.3 C 68 13 100/62 97 08/31/18 20:31 36.4 C 70 15 80/53 96 08/31/18 20:16 36.5 C 81 12 84/56 97 08/31/18 20:01 36.7 C 77 12 87/55 96 08/31/18 20:00 97 08/31/18 19:55 36.7 C 81 13 83/55 97 08/31/18 19:47 36.8 C 87 13 85/44 99 08/31/18 19:31 37.0 C 81 14 90/57 100 08/31/18 19:16 37.1 C 89 14 86/54 99 08/31/18 19:01 96 H 12 90/56 95 08/31/18 18:47 95 H 13 93/59 93 08/31/18 18:39 88 14 106/57 91 08/31/18 17:00 38.6 C H 19 94/55 92 08/31/18 16:07 39.0 C H 24 H 93 08/31/18 16:02 39.1 C H 24 H 94/55 94 08/31/18 15:25 39.1 C H 08/31/18 15:00 39.6 C H 24 H 155/105 95 08/31/18 14:46 38.2 C H 08/31/18 14:40 39.4 C H 08/31/18 14:01 38.9 C H 22 114/87 95 08/31/18 14:00 95 H 22 93 08/31/18 13:00 38.5 C H 23 H 118/70 95 08/31/18 12:09 38.2 C H 20 92 08/31/18 12:01 38.2 C H 24 H 109/72 96 08/31/18 11:04 38.2 C H 18 109/65 95 08/31/18 10:01 38.2 C H 16 114/82 92 Intake and Output 08/31/18 09/01/18 09/01/18 21:59 05:59 13:59 Intake Total 1044 1377 354 Output Total 25 313 180 Balance 1019 1064 174 Intake: Nourishment/Supplement quantity 50 (ml) IV 166 1377 184 Sodium Chloride 0.9% 250 ml @ 250 184 20 mls/hr IV .[id number] [facility] Rx#: [id number] Lactated Ringers 1,000 ml @ 100 1000 mls/hr IV .Q10H [facility] Rx#: [id number] Levophed 16 mg In Sodium 27 Chloride 0.9% 234 ml @ 10 MCG/ MIN 9.38 mls/hr IV Q24H [facility] Rx# :[id number] Zosyn 3.375 gm In Dextrose 5% 50 100 in Water 50 ml @ 100 mls/hr IV Q8H [facility] Rx#:[id number] Vitamin B1 100 mg In Sodium 51 Chloride 0.9% 50 ml @ 50 mls/hr IV ONCE ONE Rx#:[id number] Oral 240 120 Blood Product 638 Output: Urine Catheter Amount 25 313 180 Other: Meal Lunch Breakfast Percent of Meal Consumed 10% 25% Feeding Ability Total Assistance Total Assistance Nourishment/Supplement name breeze Urine Appearance Clear Temp-Probe Bynum Clear Clear Urine Color Dark Juliane Temp-Probe Bynum Dark Juliane Dark Juliane Urine Odor Strong Temp-Probe Bynum Normal Weight 97.885 kg Intake & Output: Intake & Output 08/31/18 09/01/18 09/01/18 21:59 05:59 13:59 Intake Total 1044 1377 354 Output Total 25 313 180 Balance 1019 1064 174 Weight 97.885 kg Intake: Nourishment/Supplement quantity 50 (ml) IV 166 1377 184 Sodium Chloride 0.9% 250 ml @ 250 184 20 mls/hr IV .[id number] [facility] Rx#: [id number] Lactated Ringers 1,000 ml @ 100 1000 mls/hr IV .Q10H [facility] Rx#: [id number] Levophed 16 mg In Sodium 27 Chloride 0.9% 234 ml @ 10 MCG/ MIN 9.38 mls/hr IV Q24H [facility] Rx# :[id number] Zosyn 3.375 gm In Dextrose 5% 50 100 in Water 50 ml @ 100 mls/hr IV Q8H [facility] Rx#:[id number] Vitamin B1 100 mg In Sodium 51 Chloride 0.9% 50 ml @ 50 mls/hr IV ONCE ONE Rx#:[id number] Oral 240 120 Blood Product 638 Output: Urine Catheter Amount 25 313 180 Other: Meal Lunch Breakfast Percent of Meal Consumed 10% 25% Feeding Ability Total Assistance Total Assistance Nourishment/Supplement name breeze Urine Appearance Clear Temp-Probe Bynum Clear Clear Urine Color Dark Juliane Temp-Probe Bynum Dark Juliane Dark Juliane Urine Odor Strong Temp-Probe Bynum Normal - Lab 09/01/18 04:30 09/01/18 04:30 Most recent lab results Calcium 9.3 mg/dl (8.6-10.4) 09/01/18 04:30 Phosphorus 4.3 mg/dL (2.7-4.5) 09/01/18 04:30 Magnesium 2.4 mg/dL (1.6-2.5) 09/01/18 04:30 Microbiology 08/31/18 19:02 Cerebral Spinal Fluid - Cerebral Spinal Fluid Gram Stain - Final 08/30/18 12:20 Blood Blood Culture - Preliminary 08/30/18 12:40 Blood Blood Culture - Preliminary 08/30/18 16:16 Abdomen - Lower Gram Stain - Final 08/30/18 16:16 Abdomen - Lower Abscess Culture - Preliminary 08/30/18 17:45 Nose MRSA (PCR) - Final Medications Active Medications: Allopurinol (Zyloprim) 200 mg PO DAILY [facility] Last Admin: 09/01/18 08:08 Dose: 200 mg Documented by: [email or web address] Admin: 08/31/18 09:45 Dose: 200 mg Documented by: [email or web address] Finasteride (Proscar) 5 mg PO DAILY [facility] Last Admin: 09/01/18 08:08 Dose: 5 mg Documented by: Admin: 08/31/18 09:49 Dose: 5 mg Documented by: [id number] Gabapentin (Neurontin) 600 mg PO TID [facility] Last Admin: 09/01/18 08:08 Dose: 600 mg Documented by: Admin: 08/31/18 21:14 Dose: Not Given Documented by: PORSHA Non-Admin Reason: pt too sleepy after procedure Admin: 08/31/18 14:44 Dose: 600 mg Documented by: [id number] Admin: 08/31/18 09:45 Dose: 600 mg Documented by: [id number] Admin: 08/30/18 21:17 Dose: Not Given Documented by: [email or web address] Non-Admin Reason: Clinical Judgement Hydromorphone HCl (Dilaudid) 0.5 mg IV Q2HP PRN PRN Reason: PAIN LEVEL > 6 Acetaminophen (Ofirmev) 650 mg in 65 mls @ 130 mls/hr IV Q6HP PRN PRN Reason: PAIN/FEVER > 101 Last Admin: 09/01/18 08:55 Dose: 130 mls/hr Documented by: Infusion: 08/31/18 15:30 Dose: 0 mls/hr Documented by: [email or web address] Admin: 08/31/18 14:40 Dose: 130 mls/hr Documented by: [email or web address] Infusion: 08/31/18 09:00 Dose: 0 mls/hr Documented by: [id number] Admin: 08/31/18 08:30 Dose: 130 mls/hr Documented by: [email or web address] Infusion: 08/31/18 02:30 Dose: 0 mls/hr Documented by: [email or web address] Admin: 08/31/18 01:31 Dose: 130 mls/hr Documented by: [email or web address] Vancomycin HCl 1,500 mg/ (Sodium Chloride) 500 mls @ 333.3 mls/hr IV Q24H [facility] Last Infusion: 08/31/18 11:28 Dose: 0 mls/hr Documented by: [id number] Admin: 08/31/18 09:45 Dose: 333.3 mls/hr Documented by: [email or web address] Infusion: 08/30/18 21:00 Dose: 0 mls/hr Documented by: [email or web address] Admin: 08/30/18 19:22 Dose: 333.3 mls/hr Documented by: [email or web address] Lactated Ringer's (Lactated Ringers) 1,000 mls @ 100 mls/hr IV .Q10H [facility] Stop: 09/01/18 20:59 Last Admin: 09/01/18 03:23 Dose: 100 mls/hr Documented by: Infusion: 09/01/18 01:17 Dose: 0 mls/hr Documented by: Infusion: 09/01/18 01:16 Dose: 100 mls/hr Documented by: Admin: 08/31/18 15:16 Dose: 100 mls/hr Documented by: BREE Thiamine HCl 100 mg/ Sodium (Chloride) 51 mls @ 50 mls/hr IV DAILY [facility] Stop: 09/03/18 10:02 Last Admin: 09/01/18 08:03 Dose: 50 mls/hr Documented by: [email or web address] Norepinephrine Bitartrate 16 (mg/ Sodium Chloride) 250 mls @ 9.38 mls/hr IV Q24H [facility]; Protocol Last Titration: 09/01/18 05:05 Dose: 0 mcg/min, 0 mls/hr Documented by: Titration: 09/01/18 04:55 Dose: 2 mcg/min, 1.88 mls/hr Documented by: Titration: 08/31/18 23:00 Dose: 4 mcg/min, 3.75 mls/hr Documented by: Admin: 08/31/18 22:21 Dose: 8 mcg/min, 7.5 mls/hr Documented by: PORSHA Sodium Chloride (Sodium Chloride 0.9%) 250 mls @ 20 mls/hr IV .[id number] [facility] Last Infusion: 09/01/18 07:35 Dose: 0 mls/hr Documented by: Admin: 08/31/18 22:22 Dose: 20 mls/hr Documented by: PORSHA Piperacillin Sod/Tazobactam (Sod 2.25 gm/ Dextrose) 50 mls @ 100 mls/hr IV Q6H [facility] Metoprolol Tartrate (Lopressor) 5 mg IV Q4HP PRN PRN Reason: Tachyarrhythmias Last Admin: 08/31/18 14:43 Dose: 5 mg Documented by: [id number] Admin: 08/31/18 09:45 Dose: 5 mg Documented by: BREE Naloxone HCl (Narcan) 0.1 mg IV Q2MIN PRN PRN Reason: Opiate Reversal Nitroglycerin (Nitrostat) 0.4 mg SL Q5M PRN PRN Reason: Chest Pain Olanzapine (Zyprexa) 5 mg IM ONCE [facility] Last Admin: 08/31/18 23:07 Dose: Not Given Documented by: PORSHA Non-Admin Reason: Clinical Judgement Admin: 08/31/18 01:13 Dose: Not Given Documented by: [email or web address] Non-Admin Reason: Given via Override Omeprazole (Prilosec) 20 mg PO QAMAC [facility] Last Admin: 09/01/18 07:53 Dose: 20 mg Documented by: Admin: 08/31/18 09:45 Dose: 20 mg Documented by: [id number] Admin: 08/31/18 06:29 Dose: Not Given Documented by: [id number] Non-Admin Reason: unable to take PO r/t AMS Ondansetron HCl (Zofran) 4 mg IV Q4-6HP PRN PRN Reason: Nausea And Vomiting Risperidone (Risperdal) 0.5 mg PO BID [facility] Last Admin: 09/01/18 08:08 Dose: 0.5 mg Documented by: Admin: 08/31/18 21:15 Dose: Not Given Documented by: EVEN Non-Admin Reason: Pt too sleepy after procedure Admin: 08/31/18 10:27 Dose: 0.5 mg Documented by: BREE Sodium Chloride (Saline Flush) 10 ml IV Q8 [facility] Last Admin: 09/01/18 08:56 Dose: 10 ml Documented by: Admin: 09/01/18 07:34 Dose: 10 ml Documented by: Admin: 09/01/18 05:03 Dose: 10 ml Documented by: Admin: 08/31/18 21:15 Dose: Not Given Documented by: PORSHA Non-Admin Reason: Continuous IV Admin: 08/31/18 14:44 Dose: 10 ml Documented by: Admin: 08/31/18 05:26 Dose: 10 ml Documented by: Admin: 08/30/18 22:46 Dose: Not Given Documented by: [email or web address] Non-Admin Reason: Continuous IV Vancomycin HCl (Vancomycin Per Pharmacy) 1 order IV UD [facility]; Protocol Assessment and Plan - Narrative A/P Narrative: A: 1. Delirium: - CSF WBC~ 9 with lymphocytic predominance, gram stain negative, TP ~ 104 - low suspicion for bacterial process 2. Sepsis: - Left psoas muscle inflammation with concerns for underlying infection - meets qSOFA screening criteria of 2 (tachypnea, altered mental status). SOFA score: >2 [assuming PaO2/FiO2 ratio to be normal, it is 8) 3. High INR with initial trauma to left side of body: sec to Coumadin - INR now 2.2 - Lt Psoas muscle swelling with concerns for underlying hematoma - r/o ongoing bleeding post procedure Recommendations: - Continue IV vancomycin per pharmacy assisted dosing. - Continue IV Zosyn 2.25 gm q6 [based on CrCl per [place] gault formula) - await CSF Cx - CXR to r/o any new infiltrates, as pt is tachypneic and has basilar crackles - given pt's higher risk for retroperitoneal bleed post-procedure, repeat CT abd/pelvis should be considered - spoke with Micro lab to send the aspirate (Left psoas muscle) Cx for 16S rRNA sequencing will follow Matt Glynn MD Infectious diseases
--- NOTE | 2018-09-01 10:11 | Internal Med Progress Note ---
Medical - PN: Subj Patient information: Note initiated : 09/01/18 at 10:08 am Service Date, if different from initiated Date: [] Patient: Silvio Wallace 88 y/o M admitted on 08/30/18 for Fever, Hypoxia. Chief Complaint: [] Interval history: Mr. Wallace is a 88 year old M lives in assisted living facility presents to the hospital today for evaluation of altered mental status, shortness of breath. The patient also has pain on the left side according to his daughter. The patient at baseline is alert and oriented, a few days ago he started screaming that he is not feeling well and is hurting, there is a history of fall on the left side according to the daughter. The patient was brought to the emergency room a few days ago when he had this episode of screaming, at that time he was diagnosed with cellulitis of his lower extremities, he does have open ulcers on both his toes of the medial aspect. He was prescribed Keflex and discharged back to the facility. The patient's condition as far as cellulitis is concerned and improved however his mental status did not. Today the patient was grossly altered and when the EMS was called his oxygen saturation was 75% on room air. The patient was sent to the emergency room for urgent evaluation. The patient's daughter was by the bedside who provided some history the patient was confused and was unable to provide any meaningful history The maximum temperature in the emergency room was 102.7, heart rate up to 128, blood pressure on presentation was 141 x 76, patient was saturating around 98 to 99% on 8 L of oxygen which was later weaned down to 3 to 4 L. 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 Patient is being admitted to the PCU status, discussed case with radiology plan to have a drain placed today and appropriate cultures will be sent. Patient has already received Zosyn in the ED, and was on Keflex as an outpatient for his cellulitis. Given advanced age, comorbidities the patient has overall poor prognosis, this has been explained to the patients daughter 08/31 Patient seen examined,overnight was confused, needing zyprexa unable to aspirate any pus from the Ct, some fluid sent for cultures pt still febrile and tachycardic, but bp stable ID consulted 09/01 Patient seen examined, overnight pt was hypotensive needing Pressor support, had decreased urine output and was drowsy (after effect of medications) The patient this morning however was awake still confused, was not febrile overnight but was getting febrile again, patient is tachycardic. He is off pressors now urine output has improved. Labs show stable WBC count creatinine has worsened as an expected. Patient is on IV vancomycin and Zosyn infectious disease following, CSF analysis does not reveal any evidence of bacterial meningitis further studies pending. Microbiology is negative so far Dr. Patten is following for psoas hematoma versus abscess Pertinent ROS: unable - Constitutional Vitals: Vital Signs Temp Pulse Resp BP Pulse Ox 101.2 F H 80 26 H 129/89 92 09/01/18 09:40 09/01/18 06:00 09/01/18 09:00 09/01/18 09:00 09/01/18 09:00 Period Temp Pulse Resp BP Sys/Nichole Pulse Ox Last 24 Hr 96.6 F-103.2 F 36-96 12-26 72-155/44-105 91-100 Intake and Output 08/31/18 09/01/18 09/01/18 21:59 05:59 13:59 Intake Total 1044 1377 419 Output Total 25 313 180 Balance 1019 1064 239 Weight 215 lb 12.8 oz Intake & Output: Intake & Output 08/31/18 09/01/18 09/01/18 21:59 05:59 13:59 Intake Total 1044 1377 419 Output Total 25 313 180 Balance 1019 1064 239 Weight 215 lb 12.8 oz Intake: Nourishment/Supplement quantity 50 (ml) IV 166 1377 249 Sodium Chloride 0.9% 250 ml @ 250 184 20 mls/hr IV .[id number] [facility] Rx#: [id number] Lactated Ringers 1,000 ml @ 100 1000 mls/hr IV .Q10H [facility] Rx#: [id number] Levophed 16 mg In Sodium 27 Chloride 0.9% 234 ml @ 10 MCG/ MIN 9.38 mls/hr IV Q24H [facility] Rx# :[id number] Zosyn 3.375 gm In Dextrose 5% 50 100 in Water 50 ml @ 100 mls/hr IV Q8H [facility] Rx#:[id number] Vitamin B1 100 mg In Sodium 51 Chloride 0.9% 50 ml @ 50 mls/hr IV ONCE ONE Rx#:[id number] Oral 240 120 Blood Product 638 Output: Urine Catheter Amount 25 313 180 Other: Meal Lunch Breakfast Percent of Meal Consumed 10% 25% Feeding Ability Total Assistance Total Assistance Nourishment/Supplement name breeze Urine Appearance Clear Temp-Probe Bynum Clear Clear Urine Color Dark Juliane Temp-Probe Bynum Dark Juliane Dark Juliane Urine Odor Strong Temp-Probe Bynum Normal Exam: Constitutional; febrile, confused not in distress. Eyes- No icterus, , No periorbital swelling Respiratory system: Air Entry equal on both sides, No crackles or wheezing, no rhonchi. CVS- Rate tachcyardic rhythm irregular, S1,S2 heard, no gallop, no rub. Abdomen- Soft nontender abdomen, no organomegaly, no tenderness, no guarding or rigidity, HAT DESIGNER- AOOx0, moving all extremities, no gross focal deficit noted. Medical - PN: Obj Da - Labs CBC & Chem 7: 09/01/18 04:30 09/01/18 04:30 Labs: Abnormal Lab Results 09/01/18 09/01/18 09/01/18 04:30 04:30 04:30 WBC RBC 3.37 L Hgb 10.6 L Hct 33.6 L POC Hct RDW 17.4 H Gran % 79.2 H Lymph % (Auto) 11.1 L Lymph # (Auto) 1.0 L Seg Neutrophils % Lymphocytes % Anisocytosis Ovalocytes PT 24.5 H INR 2.2 H Potassium POC Chloride Carbon Dioxide 21 L POC BUN BUN 56 H Creatinine 2.1 H POC Creatinine Glucose POC Glucose Total Bilirubin 2.0 H Direct Bilirubin 0.6 H NT-Pro-B Natriuret Pep Albumin 2.9 L Globulin Albumin/Globulin Ratio 0.8 L Urine Protein Urine Occult Blood Urine RBC Amorphous Crystals Hyaline Casts CSF RBC CSF Total Nucleated Auto CSF Lymphocytes CSF Total Protein 08/31/18 08/31/18 08/31/18 19:02 19:02 15:14 WBC RBC Hgb Hct POC Hct RDW Gran % Lymph % (Auto) Lymph # (Auto) Seg Neutrophils % Lymphocytes % Anisocytosis Ovalocytes PT INR Potassium POC Chloride Carbon Dioxide 19 L POC BUN BUN 51 H Creatinine 1.7 H POC Creatinine Glucose 124 H POC Glucose Total Bilirubin 1.8 H Direct Bilirubin NT-Pro-B Natriuret Pep Albumin 2.9 L Globulin 3.9 H Albumin/Globulin Ratio 0.7 L Urine Protein Urine Occult Blood Urine RBC Amorphous Crystals Hyaline Casts CSF RBC 11 H CSF Total Nucleated Auto 9 H 6 H CSF Lymphocytes 82 H CSF Total Protein 104 H 08/31/18 08/31/18 08/31/18 15:14 05:59 04:05 WBC RBC 2.76 L Hgb 8.7 L Hct 27.0 L POC Hct RDW 17.3 H Gran % 84.3 H Lymph % (Auto) 6.5 L Lymph # (Auto) 0.5 L Seg Neutrophils % Lymphocytes % Anisocytosis Ovalocytes PT 28.1 H INR 2.7 H Potassium POC Chloride Carbon Dioxide POC BUN BUN 50 H Creatinine 1.7 H POC Creatinine Glucose POC Glucose Total Bilirubin 1.8 H Direct Bilirubin 0.5 H NT-Pro-B Natriuret Pep Albumin 2.9 L Globulin Albumin/Globulin Ratio 0.9 L Urine Protein Urine Occult Blood Urine RBC Amorphous Crystals Hyaline Casts CSF RBC CSF Total Nucleated Auto CSF Lymphocytes CSF Total Protein 08/31/18 08/30/18 08/30/18 04:05 21:50 15:00 WBC RBC 2.63 L Hgb 8.4 L Hct 25.8 L POC Hct 26.0 L RDW 17.0 H Gran % 82.8 H Lymph % (Auto) 7.9 L Lymph # (Auto) 0.6 L Seg Neutrophils % Lymphocytes % Anisocytosis Ovalocytes PT INR Potassium POC Chloride 110 H Carbon Dioxide POC BUN 48 H BUN Creatinine POC Creatinine 1.7 H Glucose POC Glucose 115 H Total Bilirubin Direct Bilirubin NT-Pro-B Natriuret Pep Albumin Globulin Albumin/Globulin Ratio Urine Protein 30 A Urine Occult Blood >=1.0 A Urine RBC 37 H Amorphous Crystals Mod A Hyaline Casts 23 H CSF RBC CSF Total Nucleated Auto CSF Lymphocytes CSF Total Protein 08/30/18 08/30/18 08/30/18 12:40 12:40 12:40 WBC RBC Hgb Hct POC Hct RDW Gran % Lymph % (Auto) Lymph # (Auto) Seg Neutrophils % Lymphocytes % Anisocytosis Ovalocytes PT 28.5 H INR 2.7 H Potassium 5.5 H POC Chloride Carbon Dioxide POC BUN BUN 46 H Creatinine 1.6 H POC Creatinine Glucose 120 H POC Glucose Total Bilirubin 1.7 H Direct Bilirubin NT-Pro-B Natriuret Pep 9174.0 H Albumin Globulin 4.0 H Albumin/Globulin Ratio 0.9 L Urine Protein Urine Occult Blood Urine RBC Amorphous Crystals Hyaline Casts CSF RBC CSF Total Nucleated Auto CSF Lymphocytes CSF Total Protein 08/30/18 12:40 WBC 12.4 H RBC 3.14 L Hgb 10.1 L Hct 31.0 L POC Hct RDW 16.9 H Gran % Lymph % (Auto) Lymph # (Auto) Seg Neutrophils % 87 H Lymphocytes % 5 L Anisocytosis 1+ A Ovalocytes Few A PT INR Potassium POC Chloride Carbon Dioxide POC BUN BUN Creatinine POC Creatinine Glucose POC Glucose Total Bilirubin Direct Bilirubin NT-Pro-B Natriuret Pep Albumin Globulin Albumin/Globulin Ratio Urine Protein Urine Occult Blood Urine RBC Amorphous Crystals Hyaline Casts CSF RBC CSF Total Nucleated Auto CSF Lymphocytes CSF Total Protein Meds: Medications Allopurinol (Zyloprim) 200 mg PO DAILY [facility] Last Admin: 09/01/18 08:08 Dose: 200 mg Documented by: Digoxin (Lanoxin) 500 mcg IV ONCE ONE Stop: 09/01/18 10:07 Finasteride (Proscar) 5 mg PO DAILY [facility] Last Admin: 09/01/18 08:08 Dose: 5 mg Documented by: Gabapentin (Neurontin) 600 mg PO TID [facility] Last Admin: 09/01/18 08:08 Dose: 600 mg Documented by: Hydromorphone HCl (Dilaudid) 0.5 mg IV Q2HP PRN PRN Reason: PAIN LEVEL > 6 Acetaminophen (Ofirmev) 650 mg in 65 mls @ 130 mls/hr IV Q6HP PRN PRN Reason: PAIN/FEVER > 101 Last Infusion: 09/01/18 09:25 Dose: Infused Documented by: Vancomycin HCl 1,500 mg/ (Sodium Chloride) 500 mls @ 333.3 mls/hr IV Q24H [facility] Last Infusion: 08/31/18 11:28 Dose: Infused Documented by: Lactated Ringer's (Lactated Ringers) 1,000 mls @ 100 mls/hr IV .Q10H [facility] Stop: 09/01/18 20:59 Last Admin: 09/01/18 03:23 Dose: 100 mls/hr Documented by: Thiamine HCl 100 mg/ Sodium (Chloride) 51 mls @ 50 mls/hr IV DAILY [facility] Stop: 09/03/18 10:02 Last Admin: 09/01/18 08:03 Dose: 50 mls/hr Documented by: Norepinephrine Bitartrate 16 (mg/ Sodium Chloride) 250 mls @ 9.38 mls/hr IV Q24H [facility]; Protocol Last Titration: 09/01/18 05:05 Dose: 0 mcg/min, 0 mls/hr Documented by: Sodium Chloride (Sodium Chloride 0.9%) 250 mls @ 20 mls/hr IV .[id number] [facility] Last Infusion: 09/01/18 07:35 Dose: 0 mls/hr Documented by: Piperacillin Sod/Tazobactam (Sod 2.25 gm/ Dextrose) 50 mls @ 100 mls/hr IV Q6H [facility] Metoprolol Tartrate (Lopressor) 5 mg IV Q4HP PRN PRN Reason: Tachyarrhythmias Last Admin: 08/31/18 14:43 Dose: 5 mg Documented by: Naloxone HCl (Narcan) 0.1 mg IV Q2MIN PRN PRN Reason: Opiate Reversal Nitroglycerin (Nitrostat) 0.4 mg SL Q5M PRN PRN Reason: Chest Pain Olanzapine (Zyprexa) 5 mg IM ONCE [facility] Last Admin: 08/31/18 23:07 Dose: Not Given Documented by: Omeprazole (Prilosec) 20 mg PO QAMAC [facility] Last Admin: 09/01/18 07:53 Dose: 20 mg Documented by: Ondansetron HCl (Zofran) 4 mg IV Q4-6HP PRN PRN Reason: Nausea And Vomiting Risperidone (Risperdal) 0.5 mg PO BID [facility] Last Admin: 09/01/18 08:08 Dose: 0.5 mg Documented by: Sodium Chloride (Saline Flush) 10 ml IV Q8 [facility] Last Admin: 09/01/18 08:56 Dose: 10 ml Documented by: Vancomycin HCl (Vancomycin Per Pharmacy) 1 order IV UD [facility]; Protocol Medical - PN: A/P - Time Spent With Patient Total time spent is greater than 50% in coordination of care (as documented) at patient's floor/unit and/or counseling patient: - Narrative A/P Narrative: A/P Psoas Abscess vs Hematoma -uncessful aspiration. Microbiology negative so far. Fever/ Sepsis -lactic acid normal, but pt is febrile and confused, -on broad spectrum abx -CT chest abdo pelvis neg (excpet for possibility of abscess) -CSF negative to bacterial infection -Hypotension overnight likely from medications, ativan and fentaly, resolved as medication effect wore off. Septic Encephalopathy -conservative management Anemia, of Chr Disease, and acute blood loss anemia -monitor h/h, - Anticoagulation on coumadin, -INR 2.2, oral vit K is more effective than sq, will try to give oral vitamin k to reverse effect. s/p 2 units ffp Atrial fibrillation with RVR -IV metoprolol causing low bp, switch to IV digoxin. Hyperkalemia- resolved ALLI on CKD] - Low urine output overnight, due to low bp, monitor electrolytes, IVF, urine output improved this AM, will consider nephrology eval if creat keeps trending up h/o Congestive heart failure -not on oxygen, will resume lasix, once bp allows Gout -continue home meds Toe Ulcers -would care following. DVT on coumadin with therapeutic INR DNR code status, to verify POST Medical - PN: Qual - VTE Deep Vein Thrombosis/Pulmonary Embolism Present on Admission: No
--- NOTE | 2018-09-01 10:22 | XRay Report ---
INDICATION: Fever. Hypoxia. TECHNIQUE: AP chest x-ray,portable upright COMPARISON: Previous examinations dated 08/30/2018, 08/27/2018 FINDINGS:There is marked cardiomegaly. Pulmonary vascularity is within normal limits. No pulmonary edema or pulmonary congestion. There is mild density in left retrocardiac region consistent with atelectasis or infiltrate. Lungs are otherwise negative. No evidence for significant pleural effusion. 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 Marked cardiomegaly. No pulmonary edema or pulmonary congestion 2. Mild left lower lobe atelectasis or infiltrate 3. No interval change since 08/30/2018 Interpreted and Authenticated by: Bar Garcia 09/01/18
[2018-09-01] MEDS: 0.9 % SODIUM CHLORIDE 250 ML IV SCH (11:56)
[2018-09-01] MEDS: VANCOMYCIN 1,500 MG in 0.9 % SODIUM CHLORIDE 500 ML IV SCH (11:56)
[2018-09-01] MEDS: PIPERACILLIN SODIUM/TAZOBACTAM 2.25 GM in DEXTROSE 5% IN WATER 50 ML IV SCH ×2 (13:20→17:48)
--- NOTE | 2018-09-01 13:46 | General Surgery Progress Note ---
Subjective Patient reports: flatus, fever Narrative: Note initiated : 09/01/18 at 1:44 pm Service Date, if different from initiated Date: [] Patient: Silvio Wallace 88 y/o M admitted on 08/30/18 for Fever, Hypoxia. Chief Complaint: [patient is clinically stable. He has low-grade temperature. White count is 9.4. Hemoglobin is stable at 10.6. CSF Gram stain did not show any bacteria. Preliminary cultures are negative. Mentally he appears to be slightly better than on yesterday.] Objective Temp Pulse Resp BP Pulse Ox 100.7 F H 80 18 117/90 94 09/01/18 12:00 09/01/18 06:00 09/01/18 12:00 09/01/18 12:00 09/01/18 12:00 - Additional Data Intake & Output - Last 24 hours: Intake & Output 08/30/18 08/31/18 09/01/18 09/02/18 05:59 05:59 05:59 05:59 Intake Total 2915 3136 470 Output Total 1000 338 275 Balance 1915 2798 195 Weight 211 lb 14.4 oz 215 lb 12.8 oz - General physical appearance well developed, well nourished, no distress, chronically ill, other (minimally challenged, but more alert than on yesterday's) - Eyes PERRL, normal ocular movement - ENT normal pinna, normal nares, normal mucosa, no hearing loss, no congestion - Neck no masses, no bruits, trachea midline, no lymphadenopathy, no venous distension - Respiratory normal expansion, normal respiratory effort, clear to auscultation - Cardiovascular Cardiovascular exam: Present: irregular rhythm, +S1, +S2. Absent: JVD, tachycardia - Abdomen non tender (abdomen is more distended but is nontender; he has good active bowel sounds), bowel sounds (present), surgical scars (none), masses (none) - Integumentary no rash, no growths, no abnormal pigmentation, other (, mild ecchymosis left posterior thigh but unchanged from exam on yesterday) - Neurologic other (. Altered mental status and not oriented to place or time) - Musculoskeletal other ( wheelchair bound) - Psychiatric oriented to person - Labs 09/01/18 04:30 09/01/18 04:30 Diabetes panel 08/31/18 09/01/18 Range/Units 15:14 04:30 Sodium 139 142 (133-145) mmol/L Potassium 4.7 4.4 (3.3-5.1) mmol/L Chloride 105 106 (96-108) mmol/L Carbon Dioxide 19 L 21 L (22-30) mmol/L BUN 51 H 56 H (8-23) mg/dl Creatinine 1.7 H 2.1 H (0.7-1.2) mg/dl Glucose 124 H 89 (70-105) mg/dL Calcium 9.2 9.3 (8.6-10.4) mg/dl AST 26 24 (0-37) U/l ALT 14 14 (0-40) U/l Alkaline Phosphatase 67 66 (39-117) U/L Total Protein 6.8 6.6 (5.9-8.4) gm/dL Albumin 2.9 L 2.9 L (3.2-5.2) gm/dL Triglycerides 81 (<150) mg/dl Calcium panel 08/31/18 09/01/18 Range/Units 15:14 04:30 Calcium 9.2 9.3 (8.6-10.4) mg/dl Phosphorus 4.3 (2.7-4.5) mg/dL Albumin 2.9 L 2.9 L (3.2-5.2) gm/dL Pituitary panel 08/31/18 09/01/18 Range/Units 15:14 04:30 Sodium 139 142 (133-145) mmol/L Potassium 4.7 4.4 (3.3-5.1) mmol/L Chloride 105 106 (96-108) mmol/L Carbon Dioxide 19 L 21 L (22-30) mmol/L BUN 51 H 56 H (8-23) mg/dl Creatinine 1.7 H 2.1 H (0.7-1.2) mg/dl Glucose 124 H 89 (70-105) mg/dL Calcium 9.2 9.3 (8.6-10.4) mg/dl Adrenal panel 08/31/18 09/01/18 Range/Units 15:14 04:30 Sodium 139 142 (133-145) mmol/L Potassium 4.7 4.4 (3.3-5.1) mmol/L Chloride 105 106 (96-108) mmol/L Carbon Dioxide 19 L 21 L (22-30) mmol/L BUN 51 H 56 H (8-23) mg/dl Creatinine 1.7 H 2.1 H (0.7-1.2) mg/dl Glucose 124 H 89 (70-105) mg/dL Calcium 9.2 9.3 (8.6-10.4) mg/dl Total Bilirubin 1.8 H 2.0 H (0.0-1.0) mg/dL AST 26 24 (0-37) U/l ALT 14 14 (0-40) U/l Alkaline Phosphatase 67 66 (39-117) U/L Total Protein 6.8 6.6 (5.9-8.4) gm/dL Albumin 2.9 L 2.9 L (3.2-5.2) gm/dL Assessment and Plan (1) Hematoma of right iliopsoas muscle Status: Acute Assessment and plan: Hemoglobin appears to be stable. 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
--- NOTE | 2018-09-01 15:42 | Non-GYN Cytology Report ---
NON ETL SOFTWARE ENGINEER SPECIMEN NG DX CATEGORY Negative MICROSCOPIC DIAGNOSIS PSOAS ABSCESS ASPIRATION: -- PERIPHERAL BLOOD. -- NO ATYPICAL OR MALIGNANT CELLS IDENTIFIED, SEE COMMENT. (EBD:[email or web address]) COMMENT: The psoas abscess fine needle aspiration shows numerous red blood cells with scattered neutrophils, lymphocytes and monocytes compatible with peripheral blood. No definitive features of abscess are identified. MICROSCOPIC DESCRIPTION Cytologic preparations of the psoas abscess show peripheral blood components compatible with peripheral blood sampling. No features of abscess are identified. No atypical or malignant cells are identified. (EBD:[email or web address]) EXTERNAL COMMENT ~5 mL red fluid: 1 thinprep, 1 H/E, 1 Diff Quik, 1 Dias Giemsa, 1 cell block Electronically Signed by: Argentina Rai M.D.
[2018-09-01] MEDS ORDERED: OLANZapine 10 MG VIAL IM ONE ×2 (21:57→23:00)
[2018-09-01] MEDS ORDERED: OLANZapine 10 MG VIAL IM SCH (22:00)
[2018-09-02] MEDS: PIPERACILLIN SODIUM/TAZOBACTAM 2.25 GM in DEXTROSE 5% IN WATER 50 ML IV SCH ×4 (00:03→17:17)
[2018-09-02] MEDS: NOREPINEPHRINE BITARTRATE 16 MG in 0.9 % SODIUM CHLORIDE 234 ML IV SCH (00:04)
[2018-09-02] MEDS: 0.9 % SODIUM CHLORIDE 250 ML IV SCH (02:20)
[2018-09-02] MEDS: ACETAMINOPHEN 650 MG/65 ML BOTTLE IV PRN ×3 (03:34→16:41)
[2018-09-02] MEDS: 0.9 % SODIUM CHLORIDE 10 ML SYRINGE IV SCH ×4 (05:47→15:19)
[2018-09-02 05:48] LABS: Vancomycin,Random 15.7 ug/mL
[2018-09-02 06:06] LABS: Basophils # (Auto) 0 K/mcL (0.0-0.3); Basophils % (Auto) 0 % (0.0-2.0); Eosinophils # (Auto) 0.1 K/mcL (0.0-0.7); Eosinophils % (Auto) 1.2 % (0.0-7.0); Granulocytes % (Auto) 82.6 % (38.0-78.0); Lymphocytes # (Auto) 0.8 K/mcL (1.5-4.8); Lymphocytes % (Auto) 7.3 % (15.5-49.0); Mean Cell Volume 98.9 fL (80.0-100.0); Mean Corpuscular HGB Conc 32.1 g/dL (31.0-36.0); Monocytes % (Auto) 8.9 % (1.0-12.0); Platelet Count 206 K/mcL (140-440); Red Cell Distribution Width 17.4 % (11.5-14.5)
[2018-09-02 06:15] LABS: ALT/SGPT 13 U/l (0-40); Albumin/Globulin Ratio 0.8 (1.0-2.3); Alkaline Phosphatase 77 U/L (39-117); Bilirubin,Direct 0.8 mg/dL (0.0-0.3); Blood Urea Nitrogen 54 mg/dl (8-23); Gamma Glutamyl Transpeptidase 44 U/L (8-61)
[2018-09-02] MEDS ORDERED: DEXTROSE 5%-1/2NS W/20MEQ KCL 1,000 ML IV SCH ×4 (07:15→15:14)
[2018-09-02] MEDS ORDERED: VANCOMYCIN 1,000 MG in 0.9 % SODIUM CHLORIDE 250 ML IV SCH (09:00)
[2018-09-02] MEDS: risperiDONE 0.25 MG TABLET PO SCH (09:27)
[2018-09-02] MEDS: FINASTERIDE 5 MG TABLET PO SCH (09:27)
[2018-09-02] MEDS: ALLOPURINOL 100 MG TABLET PO SCH (09:27)
[2018-09-02] MEDS: GABAPENTIN 300 MG CAPSULE PO SCH (09:27)
[2018-09-02] MEDS: OMEPRAZOLE 20 MG CAPSULE PO SCH (09:30)
--- NOTE | 2018-09-02 09:51 | Internal Med Progress Note ---
Medical - PN: Subj Patient information: Note initiated : 09/02/18 at 9:46 am Service Date, if different from initiated Date: [] Patient: Silvio Wallace 88 y/o M admitted on 08/30/18 for Fever, Hypoxia. Chief Complaint: [] Interval history: Mr. Wallace is a 88 year old M lives in assisted living facility presents to the hospital today for evaluation of altered mental status, shortness of breath. The patient also has pain on the left side according to his daughter. The patient at baseline is alert and oriented, a few days ago he started screaming that he is not feeling well and is hurting, there is a history of fall on the left side according to the daughter. The patient was brought to the emergency room a few days ago when he had this episode of screaming, at that time he was diagnosed with cellulitis of his lower extremities, he does have open ulcers on both his toes of the medial aspect. He was prescribed Keflex and discharged back to the facility. The patient's condition as far as cellulitis is concerned and improved however his mental status did not. Today the patient was grossly altered and when the EMS was called his oxygen saturation was 75% on room air. The patient was sent to the emergency room for urgent evaluation. The patient's daughter was by the bedside who provided some history the patient was confused and was unable to provide any meaningful history The maximum temperature in the emergency room was 102.7, heart rate up to 128, blood pressure on presentation was 141 x 76, patient was saturating around 98 to 99% on 8 L of oxygen which was later weaned down to 3 to 4 L. 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 Patient is being admitted to the PCU status, discussed case with radiology plan to have a drain placed today and appropriate cultures will be sent. Patient has already received Zosyn in the ED, and was on Keflex as an outpatient for his cellulitis. Given advanced age, comorbidities the patient has overall poor prognosis, this has been explained to the patients daughter 08/31 Patient seen examined,overnight was confused, needing zyprexa unable to aspirate any pus from the Ct, some fluid sent for cultures pt still febrile and tachycardic, but bp stable ID consulted 09/01 Patient seen examined, overnight pt was hypotensive needing Pressor support, had decreased urine output and was drowsy (after effect of medications) The patient this morning however was awake still confused, was not febrile overnight but was getting febrile again, patient is tachycardic. He is off pressors now urine output has improved. Labs show stable WBC count creatinine has worsened as an expected. Patient is on IV vancomycin and Zosyn infectious disease following, CSF analysis does not reveal any evidence of bacterial meningitis further studies pending. Microbiology is negative so far Dr. Patten is following for psoas hematoma versus abscess 09/02 Patient seen examined, no acute issues, fever curve trending down, microbiology is negative still labs are stable overnight was agitated needing zyprexa, this AM is sleeping Pertinent ROS: unable - Constitutional Vitals: Vital Signs Temp Pulse Resp BP Pulse Ox 99.0 F 89 16 125/75 97 09/02/18 08:01 09/02/18 02:00 09/02/18 08:01 09/02/18 08:01 09/02/18 08:01 Period Temp Pulse Resp BP Sys/Nichole Pulse Ox Last 24 Hr 99.0 F-101.6 F 89 15-29 101-143/56-96 92-100 Intake and Output 09/01/18 09/02/18 09/02/18 21:59 05:59 13:59 Intake Total 1400 1115 50 Output Total 420 471 270 Balance 980 644 -220 Weight 220 lb 2 oz Intake & Output: Intake & Output 09/01/18 09/02/18 09/02/18 21:59 05:59 13:59 Intake Total 1400 1115 50 Output Total 420 471 270 Balance 980 644 -220 Weight 220 lb 2 oz Intake: IV 1180 1115 50 Lactated Ringers 1,000 ml @ 100 1000 mls/hr IV .Q10H [facility] Rx#: [id number] Zosyn 2.25 gm In Dextrose 5% in 50 50 50 Water 50 ml @ 100 mls/hr IV Q6H [facility] Rx#:[id number] Oral 220 Output: Urine Catheter Amount 420 471 270 Other: Meal Nourishment/Supplement Percent of Meal Consumed 10 Feeding Ability Total Assistance Nourishment/Supplement name applesauce Urine Appearance Clear Sediment Clear Temp-Probe Bynum Clear Clear Urine Color Dark Yellow Dark Yellow Bright Yellow Temp-Probe Bynum Dark Yellow Dark Yellow Exam: Constitutional; Afebrile, sleeping Respiratory system: Air Entry equal on both sides, No crackles or wheezing, no rhonchi. CVS- Rate rhythm regular, S1,S2 heard, no gallop, no rub. Abdomen- Soft nontender abdomen, no organomegaly, no tenderness, no guarding or rigidity, MAINTENANCE MACHINIST- AOOx0, moving all extremities spontaneously, no gross focal deficit noted. Medical - PN: Obj Da - Labs CBC & Chem 7: 09/02/18 04:00 09/02/18 04:00 Labs: Abnormal Lab Results 09/02/18 09/02/18 09/02/18 04:00 04:00 04:00 WBC RBC 2.80 L Hgb 8.9 L Hct 27.7 L POC Hct RDW 17.4 H Gran % 82.6 H Lymph % (Auto) 7.3 L Gran # 9.0 H Lymph # (Auto) 0.8 L [place] # (Auto) 1.0 H Seg Neutrophils % Lymphocytes % Anisocytosis Ovalocytes PT 20.6 H INR 1.8 H Sodium 146 H Potassium POC Chloride Chloride 109 H Carbon Dioxide POC BUN BUN 54 H Creatinine 2.0 H POC Creatinine Glucose POC Glucose Total Bilirubin 2.2 H Direct Bilirubin 0.8 H NT-Pro-B Natriuret Pep Albumin 3.0 L Globulin Albumin/Globulin Ratio 0.8 L Urine Protein Urine Occult Blood Urine RBC Amorphous Crystals Hyaline Casts CSF RBC CSF Total Nucleated Auto CSF Lymphocytes CSF Total Protein Vancomycin Trough 09/01/18 09/01/18 09/01/18 09:30 04:30 04:30 WBC RBC Hgb Hct POC Hct RDW Gran % Lymph % (Auto) Gran # Lymph # (Auto) [place] # (Auto) Seg Neutrophils % Lymphocytes % Anisocytosis Ovalocytes PT 24.5 H INR 2.2 H Sodium Potassium POC Chloride Chloride Carbon Dioxide 21 L POC BUN BUN 56 H Creatinine 2.1 H POC Creatinine Glucose POC Glucose Total Bilirubin 2.0 H Direct Bilirubin 0.6 H NT-Pro-B Natriuret Pep Albumin 2.9 L Globulin Albumin/Globulin Ratio 0.8 L Urine Protein Urine Occult Blood Urine RBC Amorphous Crystals Hyaline Casts CSF RBC CSF Total Nucleated Auto CSF Lymphocytes CSF Total Protein Vancomycin Trough 20.2 H* 09/01/18 08/31/18 08/31/18 04:30 19:02 19:02 WBC RBC 3.37 L Hgb 10.6 L Hct 33.6 L POC Hct RDW 17.4 H Gran % 79.2 H Lymph % (Auto) 11.1 L Gran # Lymph # (Auto) 1.0 L [place] # (Auto) Seg Neutrophils % Lymphocytes % Anisocytosis Ovalocytes PT INR Sodium Potassium POC Chloride Chloride Carbon Dioxide POC BUN BUN Creatinine POC Creatinine Glucose POC Glucose Total Bilirubin Direct Bilirubin NT-Pro-B Natriuret Pep Albumin Globulin Albumin/Globulin Ratio Urine Protein Urine Occult Blood Urine RBC Amorphous Crystals Hyaline Casts CSF RBC 11 H CSF Total Nucleated Auto 9 H 6 H CSF Lymphocytes 82 H CSF Total Protein 104 H Vancomycin Trough 08/31/18 08/31/18 08/31/18 15:14 15:14 05:59 WBC RBC 2.76 L Hgb 8.7 L Hct 27.0 L POC Hct RDW 17.3 H Gran % 84.3 H Lymph % (Auto) 6.5 L Gran # Lymph # (Auto) 0.5 L [place] # (Auto) Seg Neutrophils % Lymphocytes % Anisocytosis Ovalocytes PT 28.1 H INR 2.7 H Sodium Potassium POC Chloride Chloride Carbon Dioxide 19 L POC BUN BUN 51 H Creatinine 1.7 H POC Creatinine Glucose 124 H POC Glucose Total Bilirubin 1.8 H Direct Bilirubin NT-Pro-B Natriuret Pep Albumin 2.9 L Globulin 3.9 H Albumin/Globulin Ratio 0.7 L Urine Protein Urine Occult Blood Urine RBC Amorphous Crystals Hyaline Casts CSF RBC CSF Total Nucleated Auto CSF Lymphocytes CSF Total Protein Vancomycin Trough 08/31/18 08/31/18 08/30/18 04:05 04:05 21:50 WBC RBC 2.63 L Hgb 8.4 L Hct 25.8 L POC Hct 26.0 L RDW 17.0 H Gran % 82.8 H Lymph % (Auto) 7.9 L Gran # Lymph # (Auto) 0.6 L [place] # (Auto) Seg Neutrophils % Lymphocytes % Anisocytosis Ovalocytes PT INR Sodium Potassium POC Chloride 110 H Chloride Carbon Dioxide POC BUN 48 H BUN 50 H Creatinine 1.7 H POC Creatinine 1.7 H Glucose POC Glucose 115 H Total Bilirubin 1.8 H Direct Bilirubin 0.5 H NT-Pro-B Natriuret Pep Albumin 2.9 L Globulin Albumin/Globulin Ratio 0.9 L Urine Protein Urine Occult Blood Urine RBC Amorphous Crystals Hyaline Casts CSF RBC CSF Total Nucleated Auto CSF Lymphocytes CSF Total Protein Vancomycin Trough 08/30/18 08/30/18 08/30/18 15:00 12:40 12:40 WBC RBC Hgb Hct POC Hct RDW Gran % Lymph % (Auto) Gran # Lymph # (Auto) [place] # (Auto) Seg Neutrophils % Lymphocytes % Anisocytosis Ovalocytes PT 28.5 H INR 2.7 H Sodium Potassium POC Chloride Chloride Carbon Dioxide POC BUN BUN Creatinine POC Creatinine Glucose POC Glucose Total Bilirubin Direct Bilirubin NT-Pro-B Natriuret Pep 9174.0 H Albumin Globulin Albumin/Globulin Ratio Urine Protein 30 A Urine Occult Blood >=1.0 A Urine RBC 37 H Amorphous Crystals Mod A Hyaline Casts 23 H CSF RBC CSF Total Nucleated Auto CSF Lymphocytes CSF Total Protein Vancomycin Trough 08/30/18 08/30/18 12:40 12:40 WBC 12.4 H RBC 3.14 L Hgb 10.1 L Hct 31.0 L POC Hct RDW 16.9 H Gran % Lymph % (Auto) Gran # Lymph # (Auto) [place] # (Auto) Seg Neutrophils % 87 H Lymphocytes % 5 L Anisocytosis 1+ A Ovalocytes Few A PT INR Sodium Potassium 5.5 H POC Chloride Chloride Carbon Dioxide POC BUN BUN 46 H Creatinine 1.6 H POC Creatinine Glucose 120 H POC Glucose Total Bilirubin 1.7 H Direct Bilirubin NT-Pro-B Natriuret Pep Albumin Globulin 4.0 H Albumin/Globulin Ratio 0.9 L Urine Protein Urine Occult Blood Urine RBC Amorphous Crystals Hyaline Casts CSF RBC CSF Total Nucleated Auto CSF Lymphocytes CSF Total Protein Vancomycin Trough Meds: Medications Allopurinol (Zyloprim) 200 mg PO DAILY [facility] Last Admin: 09/02/18 09:27 Dose: 200 mg Documented by: Finasteride (Proscar) 5 mg PO DAILY [facility] Last Admin: 09/02/18 09:27 Dose: 5 mg Documented by: Gabapentin (Neurontin) 600 mg PO TID [facility] Last Admin: 09/02/18 09:27 Dose: 600 mg Documented by: Hydromorphone HCl (Dilaudid) 0.5 mg IV Q2HP PRN PRN Reason: PAIN LEVEL > 6 Acetaminophen (Ofirmev) 650 mg in 65 mls @ 130 mls/hr IV Q6HP PRN PRN Reason: PAIN/FEVER > 101 Last Infusion: 09/02/18 04:15 Dose: Infused Documented by: Thiamine HCl 100 mg/ Sodium (Chloride) 51 mls @ 50 mls/hr IV DAILY [facility] Stop: 09/03/18 10:02 Last Infusion: 09/01/18 09:05 Dose: Infused Documented by: Norepinephrine Bitartrate 16 (mg/ Sodium Chloride) 250 mls @ 9.38 mls/hr IV Q24H [facility]; Protocol Last Admin: 09/02/18 00:04 Dose: Not Given Documented by: Sodium Chloride (Sodium Chloride 0.9%) 250 mls @ 20 mls/hr IV .[id number] [facility] Last Admin: 09/02/18 02:20 Dose: Not Given Documented by: Piperacillin Sod/Tazobactam (Sod 2.25 gm/ Dextrose) 50 mls @ 100 mls/hr IV Q6H [facility] Last Infusion: 09/02/18 06:48 Dose: Infused Documented by: Potassium Chloride/Dextrose/Sod Cl (Dextrose 5%-1/2ns W/20meq Kcl) 1,000 mls @ 75 mls/hr IV .[id number] [facility] Last Admin: 09/02/18 07:10 Dose: 75 mls/hr Documented by: Vancomycin HCl 1,000 mg/ (Sodium Chloride) 250 mls @ 250 mls/hr IV DAILY [facility] Last Admin: 09/02/18 09:04 Dose: 250 mls/hr Documented by: Metoprolol Tartrate (Lopressor) 5 mg IV Q4HP PRN PRN Reason: Tachyarrhythmias Last Admin: 08/31/18 14:43 Dose: 5 mg Documented by: Naloxone HCl (Narcan) 0.1 mg IV Q2MIN PRN PRN Reason: Opiate Reversal Nitroglycerin (Nitrostat) 0.4 mg SL Q5M PRN PRN Reason: Chest Pain Olanzapine (Zyprexa) 5 mg IM ONCE [facility] Last Admin: 09/01/18 21:58 Dose: 5 mg Documented by: Omeprazole (Prilosec) 20 mg PO QAMAC [facility] Last Admin: 09/02/18 09:30 Dose: 20 mg Documented by: Ondansetron HCl (Zofran) 4 mg IV Q4-6HP PRN PRN Reason: Nausea And Vomiting Risperidone (Risperdal) 0.5 mg PO BID [facility] Last Admin: 09/02/18 09:27 Dose: 0.5 mg Documented by: Sodium Chloride (Saline Flush) 10 ml IV Q8 [facility] Last Admin: 09/02/18 07:15 Dose: 10 ml Documented by: Vancomycin HCl (Vancomycin Per Pharmacy) 1 order IV UD [facility]; Protocol Medical - PN: A/P - Time Spent With Patient Total time spent is greater than 50% in coordination of care (as documented) at patient's floor/unit and/or counseling patient: - Narrative A/P Narrative: A/P Psoas Abscess vs Hematoma -unsuccessful aspiration/catheter placement. few drops sent for microbiolgy which is negative so far. Fever/ Sepsis -lactic acid normal, but pt is febrile and confused, -on broad spectrum abx -CT chest abdo pelvis neg (excpet for possibility of abscess) -CSF negative to bacterial infection -Hypotension overnight likely from medications, ativan and fentaly, resolved as medication effect wore off. Needed pressors for few hours, -fever curve is improving Septic Encephalopathy -conservative management -risperidone/zyprexa Anemia, of Chr Disease, and acute blood loss anemia -monitor h/h, stable - Anticoagulation on coumadin, -INR 1.8 , oral vit K is more effective than sq, will try to give oral vitamin k to reverse effect. s/p 2 units ffp Atrial fibrillation with RVR -IV metoprolol causing low bp, switch to IV digoxin. -repeat dose today. -will resume metoprolol once pt is more stable and able to tolerate po Hyperkalemia- resolved ALLI on CKD - urine output stable -creat 2.0, stable, monitor h/o Congestive heart failure -not on oxygen, will resume lasix, once bp allows Gout -continue home meds Toe Ulcers -would care following. DVT on coumadin with INR of 1.8, monitor DNR code status, Medical - PN: Qual - VTE Deep Vein Thrombosis/Pulmonary Embolism Present on Admission: No
[2018-09-02] MEDS: THIAMINE 100 MG in 0.9 % SODIUM CHLORIDE 50 ML IV SCH (11:03)
[2018-09-02] MEDS ORDERED: ONDANSETRON 4 MG/2 ML VIAL IV PRN (11:12)
[2018-09-02] MEDS ORDERED: 0.9 % SODIUM CHLORIDE 250 ML IV SCH (11:12)
[2018-09-02] MEDS ORDERED: METOPROLOL TARTRATE 5 MG/5 ML VIAL IV PRN (11:12)
[2018-09-02] MEDS ORDERED: VANCOMYCIN PER PHARMACY IV SCH (11:12)
[2018-09-02] MEDS ORDERED: NALOXONE HCL 0.4 MG/ML VIAL IV PRN (11:12)
[2018-09-02] MEDS ORDERED: NITROGLYCERIN 0.4 MG TAB.SUBL SL PRN (11:12)
[2018-09-02] MEDS ORDERED: DIGOXIN 500 MCG/2 ML AMPUL IV ONE (11:12)
[2018-09-02] MEDS ORDERED: HYDROmorphone 2 MG/ML VIAL IV PRN (11:12)
[2018-09-02] MEDS ORDERED: OLANZapine 10 MG VIAL IM ONE (11:45)
[2018-09-02] MEDS ORDERED: IPRATROPIUM/ALBUTEROL 3 ML AMPUL.NEB NEB SCH (13:00)
--- NOTE | 2018-09-02 13:12 | Internal Med Progress Note ---
Medical - PN: Subj Patient information: Note initiated : 09/02/18 at 1:05 pm Service Date, if different from initiated Date: [] Patient: Silvio Wallace 88 y/o M admitted on 08/30/18 for Fever, Hypoxia. Chief Complaint: [] - Constitutional Vitals: Vital Signs Temp Pulse Resp BP Pulse Ox 101.7 F H 120 H 20 147/90 95 09/02/18 12:25 09/02/18 11:52 09/02/18 12:01 09/02/18 12:01 09/02/18 12:01 Period Temp Pulse Resp BP Sys/Nichole Pulse Ox Last 24 Hr 99.0 F-101.7 F 89-120 15-29 107-169/56-100 92-100 Intake and Output 09/01/18 09/02/18 09/02/18 21:59 05:59 13:59 Intake Total 1400 1115 660 Output Total 420 471 480 Balance 980 644 180 Weight 99.847 kg Intake & Output: Intake & Output 09/01/18 09/02/18 09/02/18 21:59 05:59 13:59 Intake Total 1400 1115 660 Output Total 420 471 480 Balance 980 644 180 Weight 99.847 kg Intake: IV 1180 1115 300 Lactated Ringers 1,000 ml @ 100 1000 mls/hr IV .Q10H [facility] Rx#: [id number] Zosyn 2.25 gm In Dextrose 5% in 50 50 50 Water 50 ml @ 100 mls/hr IV Q6H [facility] Rx#:[id number] Vancomycin 1,000 mg In Sodium 250 Chloride 0.9% 250 ml @ 250 mls/ hr IV DAILY [facility] Rx#:[id number] Oral 220 360 Output: Urine Catheter Amount 420 471 480 Other: Meal Nourishment/Supplement Lunch Percent of Meal Consumed 10 95 Feeding Ability Total Assistance Total Assistance Nourishment/Supplement name applesauce Urine Appearance Clear Sediment Clear Temp-Probe Bynum Clear Clear Clear Urine Color Dark Yellow Dark Yellow Bright Yellow Temp-Probe Bynum Dark Yellow Dark Yellow Bright Yellow Urine Odor Normal Medical - PN: Obj Da - Labs CBC & Chem 7: 09/02/18 04:00 09/02/18 04:00 Labs: Abnormal Lab Results 09/02/18 09/02/18 09/02/18 04:00 04:00 04:00 WBC RBC 2.80 L Hgb 8.9 L Hct 27.7 L POC Hct RDW 17.4 H Gran % 82.6 H Lymph % (Auto) 7.3 L Gran # 9.0 H Lymph # (Auto) 0.8 L [place] # (Auto) 1.0 H Seg Neutrophils % Lymphocytes % Anisocytosis Ovalocytes PT 20.6 H INR 1.8 H Sodium 146 H Potassium POC Chloride Chloride 109 H Carbon Dioxide POC BUN BUN 54 H Creatinine 2.0 H POC Creatinine Glucose POC Glucose Total Bilirubin 2.2 H Direct Bilirubin 0.8 H NT-Pro-B Natriuret Pep Albumin 3.0 L Globulin Albumin/Globulin Ratio 0.8 L Urine Protein Urine Occult Blood Urine RBC Amorphous Crystals Hyaline Casts CSF RBC CSF Total Nucleated Auto CSF Lymphocytes CSF Total Protein Vancomycin Trough 09/01/18 09/01/18 09/01/18 09:30 04:30 04:30 WBC RBC Hgb Hct POC Hct RDW Gran % Lymph % (Auto) Gran # Lymph # (Auto) [place] # (Auto) Seg Neutrophils % Lymphocytes % Anisocytosis Ovalocytes PT 24.5 H INR 2.2 H Sodium Potassium POC Chloride Chloride Carbon Dioxide 21 L POC BUN BUN 56 H Creatinine 2.1 H POC Creatinine Glucose POC Glucose Total Bilirubin 2.0 H Direct Bilirubin 0.6 H NT-Pro-B Natriuret Pep Albumin 2.9 L Globulin Albumin/Globulin Ratio 0.8 L Urine Protein Urine Occult Blood Urine RBC Amorphous Crystals Hyaline Casts CSF RBC CSF Total Nucleated Auto CSF Lymphocytes CSF Total Protein Vancomycin Trough 20.2 H* 09/01/18 08/31/18 08/31/18 04:30 19:02 19:02 WBC RBC 3.37 L Hgb 10.6 L Hct 33.6 L POC Hct RDW 17.4 H Gran % 79.2 H Lymph % (Auto) 11.1 L Gran # Lymph # (Auto) 1.0 L [place] # (Auto) Seg Neutrophils % Lymphocytes % Anisocytosis Ovalocytes PT INR Sodium Potassium POC Chloride Chloride Carbon Dioxide POC BUN BUN Creatinine POC Creatinine Glucose POC Glucose Total Bilirubin Direct Bilirubin NT-Pro-B Natriuret Pep Albumin Globulin Albumin/Globulin Ratio Urine Protein Urine Occult Blood Urine RBC Amorphous Crystals Hyaline Casts CSF RBC 11 H CSF Total Nucleated Auto 9 H 6 H CSF Lymphocytes 82 H CSF Total Protein 104 H Vancomycin Trough 08/31/18 08/31/18 08/31/18 15:14 15:14 05:59 WBC RBC 2.76 L Hgb 8.7 L Hct 27.0 L POC Hct RDW 17.3 H Gran % 84.3 H Lymph % (Auto) 6.5 L Gran # Lymph # (Auto) 0.5 L [place] # (Auto) Seg Neutrophils % Lymphocytes % Anisocytosis Ovalocytes PT 28.1 H INR 2.7 H Sodium Potassium POC Chloride Chloride Carbon Dioxide 19 L POC BUN BUN 51 H Creatinine 1.7 H POC Creatinine Glucose 124 H POC Glucose Total Bilirubin 1.8 H Direct Bilirubin NT-Pro-B Natriuret Pep Albumin 2.9 L Globulin 3.9 H Albumin/Globulin Ratio 0.7 L Urine Protein Urine Occult Blood Urine RBC Amorphous Crystals Hyaline Casts CSF RBC CSF Total Nucleated Auto CSF Lymphocytes CSF Total Protein Vancomycin Trough 08/31/18 08/31/18 08/30/18 04:05 04:05 21:50 WBC RBC 2.63 L Hgb 8.4 L Hct 25.8 L POC Hct 26.0 L RDW 17.0 H Gran % 82.8 H Lymph % (Auto) 7.9 L Gran # Lymph # (Auto) 0.6 L [place] # (Auto) Seg Neutrophils % Lymphocytes % Anisocytosis Ovalocytes PT INR Sodium Potassium POC Chloride 110 H Chloride Carbon Dioxide POC BUN 48 H BUN 50 H Creatinine 1.7 H POC Creatinine 1.7 H Glucose POC Glucose 115 H Total Bilirubin 1.8 H Direct Bilirubin 0.5 H NT-Pro-B Natriuret Pep Albumin 2.9 L Globulin Albumin/Globulin Ratio 0.9 L Urine Protein Urine Occult Blood Urine RBC Amorphous Crystals Hyaline Casts CSF RBC CSF Total Nucleated Auto CSF Lymphocytes CSF Total Protein Vancomycin Trough 08/30/18 08/30/18 08/30/18 15:00 12:40 12:40 WBC RBC Hgb Hct POC Hct RDW Gran % Lymph % (Auto) Gran # Lymph # (Auto) [place] # (Auto) Seg Neutrophils % Lymphocytes % Anisocytosis Ovalocytes PT 28.5 H INR 2.7 H Sodium Potassium POC Chloride Chloride Carbon Dioxide POC BUN BUN Creatinine POC Creatinine Glucose POC Glucose Total Bilirubin Direct Bilirubin NT-Pro-B Natriuret Pep 9174.0 H Albumin Globulin Albumin/Globulin Ratio Urine Protein 30 A Urine Occult Blood >=1.0 A Urine RBC 37 H Amorphous Crystals Mod A Hyaline Casts 23 H CSF RBC CSF Total Nucleated Auto CSF Lymphocytes CSF Total Protein Vancomycin Trough 08/30/18 08/30/18 12:40 12:40 WBC 12.4 H RBC 3.14 L Hgb 10.1 L Hct 31.0 L POC Hct RDW 16.9 H Gran % Lymph % (Auto) Gran # Lymph # (Auto) [place] # (Auto) Seg Neutrophils % 87 H Lymphocytes % 5 L Anisocytosis 1+ A Ovalocytes Few A PT INR Sodium Potassium 5.5 H POC Chloride Chloride Carbon Dioxide POC BUN BUN 46 H Creatinine 1.6 H POC Creatinine Glucose 120 H POC Glucose Total Bilirubin 1.7 H Direct Bilirubin NT-Pro-B Natriuret Pep Albumin Globulin 4.0 H Albumin/Globulin Ratio 0.9 L Urine Protein Urine Occult Blood Urine RBC Amorphous Crystals Hyaline Casts CSF RBC CSF Total Nucleated Auto CSF Lymphocytes CSF Total Protein Vancomycin Trough Meds: Medications Albuterol/Ipratropium (Duoneb) 3 ml NEB Q6HRT [facility] Last Admin: 09/02/18 11:52 Dose: 3 ml Documented by: Allopurinol (Zyloprim) 200 mg PO DAILY [facility] Finasteride (Proscar) 5 mg PO DAILY [facility] Gabapentin (Neurontin) 600 mg PO TID [facility] Hydromorphone HCl (Dilaudid) 0.5 mg IV Q2HP PRN PRN Reason: PAIN LEVEL > 6 Potassium Chloride/Dextrose/Sod Cl (Dextrose 5%-1/2ns W/20meq Kcl) 1,000 mls @ 75 mls/hr IV .[id number] [facility] Norepinephrine Bitartrate 16 (mg/ Sodium Chloride) 250 mls @ 9.38 mls/hr IV Q24HP PRN; Protocol PRN Reason: Hypotension Sodium Chloride (Sodium Chloride 0.9%) 250 mls @ 20 mls/hr IV .[id number] [facility] Last Admin: 09/02/18 11:54 Dose: Not Given Documented by: Acetaminophen (Ofirmev) 650 mg in 65 mls @ 130 mls/hr IV Q6HP PRN PRN Reason: PAIN/FEVER > 101 Last Admin: 09/02/18 11:40 Dose: 130 mls/hr Documented by: Piperacillin Sod/Tazobactam (Sod 2.25 gm/ Dextrose) 50 mls @ 100 mls/hr IV Q6H [facility] Last Admin: 09/02/18 12:30 Dose: 100 mls/hr Documented by: Thiamine HCl 100 mg/ Sodium (Chloride) 51 mls @ 50 mls/hr IV DAILY [facility] Stop: 09/03/18 10:02 Vancomycin HCl 1,000 mg/ (Sodium Chloride) 250 mls @ 250 mls/hr IV DAILY [facility] Metoprolol Tartrate (Lopressor) 5 mg IV Q4HP PRN PRN Reason: Tachyarrhythmias Naloxone HCl (Narcan) 0.1 mg IV Q2MIN PRN PRN Reason: Opiate Reversal Nitroglycerin (Nitrostat) 0.4 mg SL Q5M PRN PRN Reason: Chest Pain Omeprazole (Prilosec) 20 mg PO QAMAC [facility] Ondansetron HCl (Zofran) 4 mg IV Q4-6HP PRN PRN Reason: Nausea And Vomiting Risperidone (Risperdal) 0.5 mg PO BID [facility] Sodium Chloride (Saline Flush) 10 ml IV Q8 [facility] Last Admin: 09/02/18 11:34 Dose: 10 ml Documented by: Vancomycin HCl (Vancomycin Per Pharmacy) 1 order IV UD [facility]; Protocol Medical - PN: A/P - Time Spent With Patient Total time spent is greater than 50% in coordination of care (as documented) at patient's floor/unit and/or counseling patient: - Narrative A/P Narrative: A: *Psoas Hematoma, Small: initial concern for abscess but aspiration yielded only few drops of blood, pathology no definitive features of abscess identified -likely from Fall (on warfarin for Afib) -cx neg *Fever/Sepsis: ?etiology -lactic acid normal, but pt is febrile and confused, -CT chest/ab/pelvis neg (except for hematoma) -CSF negative to bacterial infection -still febrile *Septic Encephalopathy, superimposed on underlying Dementia: confusion at baseline per family to nurse *Anemia, of Chr Disease, and acute blood loss anemia & and dilutional component: -s/p 2 PRB (08/31) *Atrial fibrillation with RVR: home med warfarin and BB *ALLI on CKD III: -urine output stable -creat 2.0, stable, monitor *h/o systolic(20-25% on 2014 echo) CHF: not on oxygen -on BB/ARB/Lasix bid/Aldactone at home *Hyperkalemia: resolved *HTN: home med Losartan/Toprol *Toe Ulcers: would care following. *Dementia: *GERD: P: -on broad spectrum abx -ID following; needs tagged-wbc scan which we cannot perform here, fever of unknown origin, day 3 at [place] with no source and continued fevers, transfer to [place] -risperidone/zyprexa -monitor H&H -IVF 1/2NS -IV metoprolol causing low bp, switch to IV digoxin. -will resume metoprolol when able to tolerate po -will resume lasix -risperidone/zyprexa -ppx: SCD, resume warfarin per pharm once f/u INR,H&H in AM DNR/DNI, but daughter would like aggressive measures otherwise Medical - PN: Qual - VTE Deep Vein Thrombosis/Pulmonary Embolism Present on Admission: No
[2018-09-02] MEDS ORDERED: GABAPENTIN 300 MG CAPSULE PO SCH (15:00)
[2018-09-02] MEDS ORDERED: hydrALAZINE 20 MG/ML VIAL IV PRN (15:11)
[2018-09-02] MEDS ORDERED: HYDROCHLOROTHIAZIDE 25 MG TABLET PO ONE (15:11)
--- NOTE | 2018-09-02 15:44 | Transfer Summary ---
Transfer Discharge Sum: Prov Patient information: Note initiated : 09/02/18 at 3:41 pm Service Date, if different from initiated Date: [] Patient: Silvio Wallace 88 y/o M admitted on 08/30/18 for Fever, Hypoxia. Chief Complaint: [] Date of admission: 08/30/18 17:20 Discharge Date: 09/02/18 Primary care physician: Kenny Beal MD Consults: 08/30/18 Consult to Physician [CONS] Stat Comment: Consulting Provider: Andres Gonzalez Reason For Exam: Physician to Consult 08/30/18 17:38 Consult to Physician [CONS] Stat Comment: Consulting Provider: Jaquan Sheets Reason For Exam: Physician to Consult 08/31/18 09:11 Consult to Infectious Disease [CONS] Routine Comment: psoas abscess Consulting Provider: Matt Glynn Reason For Exam: Physician to Consult 08/31/18 16:15 Consult to Physician [CONS] Routine Comment: psoas abscess Consulting Provider: Dwayne Patten Reason For Exam: Physician to Consult Transfer Discharge Sum: Med - Medications Active and Home Medications: Home Medications Acetaminophen [Tylenol Extra Strength] 1,000 mg PO HSP PRN 05/19/18 [History Confirmed 08/30/18] Acetaminophen [Tylenol] 650 mg PO Q4HP PRN 05/19/18 [History Confirmed 08/30/18] Docusate Sodium [Colace] 100 mg PO BID 05/19/18 [History Confirmed 08/30/18] Fexofenadine [Felicia] 180 mg PO DAILY 05/19/18 [History Confirmed 08/30/18] Finasteride [Proscar] 5 mg PO DAILY 05/19/18 [History Confirmed 08/30/18] Furosemide [Lasix] 40 mg PO BIDD 05/19/18 [History Confirmed 08/30/18] Lactobacill 46/B.animal/Inulin [Probiotic-10 10 Bill Cell Cap] 1 each PO HS 05/19/18 [History Confirmed 08/30/18] Loperamide HCl [Loperamide] 2 mg PO PRN PRN 05/19/18 [History Confirmed 08/30/18] Magnesium Hydroxide [Milk of Magnesia] 30 ml PO DAILYP PRN 05/19/18 [History Confirmed 08/30/18] Multivit-Min/FA/Lycopen/Lutein [Sentry Senior Tablet] 1 tab PO DAILY 05/19/18 [History Confirmed 08/30/18] Omeprazole [Prilosec] 20 mg PO QAMAC 05/19/18 [History Confirmed 08/30/18] Spironolactone [Aldactone] 12.5 mg PO DAILY 05/19/18 [History Confirmed 08/30/18] Vitamin D3 2,000 unit PO DAILY 05/19/18 [History Confirmed 08/30/18] Warfarin Sodium [Jantoven] 5 mg PO DAILY 05/19/18 [History Confirmed 08/30/18] allopurinol 100 mg tablet 200 mg PO DAILY #90 tab 06/11/18 [Rx Confirmed 08/30/18] losartan 100 mg tablet 50 mg PO DAILY #90 tab 06/11/18 [Rx Confirmed 08/30/18] gabapentin 300 mg capsule 600 mg PO TID #180 cap 06/30/18 [Rx Confirmed 08/30/18] ipratropium bromide 0.03 % nasal spray 2 spray INTRANASAL BID #30 ml 07/14/18 [Rx Confirmed 08/30/18] potassium chloride ER 10 mEq tablet,extended release 20 meq PO QAMCC #90 tab 07/15/18 [Rx Confirmed 08/30/18] Mupirocin Oint 2% [Bactroban Oint 2%] 1 dose TOPICAL TID #1 tube 08/24/18 [Rx Confirmed 08/30/18] Nitroglycerin 0.4 mg SL Q5M PRN #25 tab.subl 08/27/18 [Rx Confirmed 08/30/18] Bisacodyl [Dulcolax] 10 mg IL DAILYP PRN 08/30/18 [History Confirmed 08/30/18] Calcium Carbonate [Tums] 1,000 mg CHEWED Q4HP PRN 08/30/18 [History Confirmed 08/30/18] Metoprolol Succinate [Toprol Xl] 50 mg PO BID 08/30/18 [History Confirmed 08/30/18] Nystatin Crm 1 dose TOPICAL BIDP PRN 08/30/18 [History Confirmed 08/30/18] Active Medications Albuterol/Ipratropium (Duoneb) 3 ml NEB Q6HRT [facility] Last Admin: 09/02/18 11:52 Dose: 3 ml Documented by: Allopurinol (Zyloprim) 200 mg PO DAILY [facility] Finasteride (Proscar) 5 mg PO DAILY [facility] Gabapentin (Neurontin) 600 mg PO TID [facility] Last Admin: 09/02/18 15:19 Dose: 600 mg Documented by: Hydralazine HCl (Apresoline) 0 mg IV Q4-6HP PRN PRN Reason: Hypertension Hydromorphone HCl (Dilaudid) 0.5 mg IV Q2HP PRN PRN Reason: PAIN LEVEL > 6 Norepinephrine Bitartrate 16 (mg/ Sodium Chloride) 250 mls @ 9.38 mls/hr IV Q24HP PRN; Protocol PRN Reason: Hypotension Acetaminophen (Ofirmev) 650 mg in 65 mls @ 130 mls/hr IV Q6HP PRN PRN Reason: PAIN/FEVER > 101 Last Infusion: 09/02/18 12:10 Dose: Infused Documented by: Piperacillin Sod/Tazobactam (Sod 2.25 gm/ Dextrose) 50 mls @ 100 mls/hr IV Q6H [facility] Last Infusion: 09/02/18 13:14 Dose: Infused Documented by: Thiamine HCl 100 mg/ Sodium (Chloride) 51 mls @ 50 mls/hr IV DAILY [facility] Stop: 09/03/18 10:02 Vancomycin HCl 1,000 mg/ (Sodium Chloride) 250 mls @ 250 mls/hr IV DAILY [facility] Potassium Chloride/Dextrose/Sod Cl (Dextrose 5%-1/2ns W/20meq Kcl) 1,000 mls @ 50 mls/hr IV .Q20H [facility] Metoprolol Tartrate (Lopressor) 5 mg IV Q4HP PRN PRN Reason: Tachyarrhythmias Naloxone HCl (Narcan) 0.1 mg IV Q2MIN PRN PRN Reason: Opiate Reversal Nitroglycerin (Nitrostat) 0.4 mg SL Q5M PRN PRN Reason: Chest Pain Omeprazole (Prilosec) 20 mg PO QAMAC [facility] Ondansetron HCl (Zofran) 4 mg IV Q4-6HP PRN PRN Reason: Nausea And Vomiting Risperidone (Risperdal) 0.5 mg PO BID [facility] Sodium Chloride (Saline Flush) 10 ml IV Q8 [facility] Last Admin: 09/02/18 15:19 Dose: 10 ml Documented by: Vancomycin HCl (Vancomycin Per Pharmacy) 1 order IV [facility]; Protocol Transfer Discharge Sum: Hosp Hospital course: Mr. Wallace is a 88 year old M Mr. Wallace is a 88 year old M lives in assisted living facility presents to the hospital today for evaluation of altered mental status, shortness of breath. The patient also has pain on the left side according to his daughter. The patient at baseline is alert and oriented, a few days ago he started screaming that he is not feeling well and is hurting, there is a history of fall on the left side according to the daughter. The patient was brought to the emergency room a few days ago when he had this episode of screaming, at that time he was diagnosed with cellulitis of his lower extremities, he does have open ulcers on both his toes of the medial aspect. He was prescribed Keflex and discharged back to the facility. The patient's condition as far as cellulitis is concerned and improved however his mental status did not. Today the patient was grossly altered and when the EMS was called his oxygen saturation was 75% on room air. The patient was sent to the emergency room for urgent evaluation. The patient's daughter was by the bedside who provided some history the patient was confused and was unable to provide any meaningful history The maximum temperature in the emergency room was 102.7, heart rate up to 128, blood pressure on presentation was 141 x 76, patient was saturating around 98 to 99% on 8 L of oxygen which was later weaned down to 3 to 4 L. 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 Patient is being admitted to the PCU status, discussed case with radiology plan to have a drain placed today and appropriate cultures will be sent. Patient has already received Zosyn in the ED, and was on Keflex as an outpatient for his cellulitis. Given advanced age, comorbidities the patient has overall poor prognosis, this has been explained to the patients daughter 08/31 Patient seen examined,overnight was confused, needing zyprexa unable to aspirate any pus from the Ct, some fluid sent for cultures pt still febrile and tachycardic, but bp stable ID consulted 09/01 Patient seen examined, overnight pt was hypotensive needing Pressor support, had decreased urine output and was drowsy (after effect of medications) The patient this morning however was awake still confused, was not febrile overnight but was getting febrile again, patient is tachycardic. He is off pressors now urine output has improved. Labs show stable WBC count creatinine has worsened as an expected. Patient is on IV vancomycin and Zosyn infectious disease following, CSF analysis does not reveal any evidence of bacterial meningitis further studies pending. Microbiology is negative so far Dr. Patten is following for psoas hematoma versus abscess 09/02 Patient seen examined, no acute issues, fever curve trending down, microbiology is negative still labs are stable overnight was agitated needing zyprexa, this AM is sleeping Patient continues to be febrile. Reviewed with infectious disease specialist who is following. Patient needs tagged-WBC scan, unable to to perform that at this facility. Discussed case with Dr. Yañez at [facility] who graciously agreed to accept. Also spoke with Dr. Vargas., the infectious disease specialist at [facility]. - Time Spent with Patient Total time spent providing and/or coordinating transfer services: Greater than 30 minutes Transfer Discharge Sum: Exam - Constitutional Vitals: Vital Signs Temp Pulse Pulse Resp BP Pulse Ox 09/02/18 12:25 101.7 F H 09/02/18 12:01 101.7 F H 20 147/90 95 09/02/18 11:52 120 H 20 09/02/18 11:40 101.5 F H 09/02/18 11:26 101.3 F H 22 169/100 94 09/02/18 09:00 97 09/02/18 08:01 99.0 F 16 125/75 97 09/02/18 07:01 99.3 F H 17 111/71 99 09/02/18 06:02 99.9 F H 15 120/73 97 09/02/18 05:06 100.4 F H 23 H 98 09/02/18 05:04 22 100 09/02/18 05:01 100.5 F H 21 121/96 98 09/02/18 04:19 101.0 F H 09/02/18 04:01 100.9 F H 22 137/69 100 09/02/18 03:34 100.7 F H 09/02/18 03:32 100.7 F H 20 100 09/02/18 03:00 100.4 F H 19 125/71 100 09/02/18 02:00 99.9 F H 89 20 118/73 99 09/02/18 01:01 99.4 F H 19 130/68 98 09/02/18 00:48 99.4 F H 21 109/65 98 09/02/18 00:01 99.3 F H 19 109/90 97 09/01/18 23:01 99.5 F H 17 129/72 95 09/01/18 22:02 100.1 F H 21 108/92 100 09/01/18 21:51 100.2 F H 09/01/18 21:07 100.4 F H 09/01/18 21:02 100.4 F H 21 127/56 99 09/01/18 20:02 100.3 F H 22 125/65 100 09/01/18 19:20 96 09/01/18 19:02 100.3 F H 24 H 130/80 96 09/01/18 18:01 100.4 F H 19 143/80 97 09/01/18 17:01 100.9 F H 23 H 135/72 94 09/01/18 16:03 101.6 F H 18 107/87 94 09/01/18 15:49 101.6 F H Intake and Output 09/02/18 09/02/18 09/02/18 05:59 13:59 21:59 Intake Total 1115 826 Output Total 471 480 90 Balance 644 346 -90 Intake: IV 1115 466 Zosyn 2.25 gm In Dextrose 5% in 50 100 Water 50 ml @ 100 mls/hr IV Q6H [facility] Rx#:[id number] Vancomycin 1,000 mg In Sodium 250 Chloride 0.9% 250 ml @ 250 mls/ hr IV DAILY [facility] Rx#:[id number] Oral 360 Output: Urine Catheter Amount 471 480 90 Other: Meal Lunch Percent of Meal Consumed 95 Feeding Ability Total Assistance Urine Appearance Sediment Clear Temp-Probe Bynum Clear Clear Urine Color Dark Yellow Bright Yellow Temp-Probe Bynum Dark Yellow Bright Yellow Urine Odor Normal Transfer Discharge Sum: Data Procedures and tests throughout hospitalization: Pending Orders 08/30/18 Consult to Physician [CONS] Stat 08/30/18 12:20 Blood Culture Stat 08/30/18 16:18 Resuscitation Status Routine 08/30/18 17:38 Case Management Referral .Routine Admit as Inpatient Routine monitoring analyst CONT Condition Routine Elevate head of bed .ROUTINE IV Insertion/Management QSHIFT Intake and Output Q4H Oral hygiene .ROUTINE Weight Monitoring QHS Consult to Physician [CONS] Stat RD to Adjust Diet/Supplements as Needed Routine Occupational Therapy Eval & Tx DAILY Physical Therapy Eval & Tx QD-BID Continuous pulse oximetry .ROUTINE Incentive Spirometry Assess/Tx Q2HWA Nebulizer management .Routine Oxygen Order .Routine Speech Therapy Eval & Treat .Routine 08/30/18 18:36 Wound Nurse Referral .Routine 08/31/18 09:11 Consult to Infectious Disease [CONS] Routine 08/31/18 15:08 Cardiac Diet 08/31/18 15:14 Blood Culture Urgent 08/31/18 16:15 Consult to Physician [CONS] Routine 08/31/18 19:00 Encephalitis Antibody PNL, CSF Urgent HSV 1 & 2 PCR (CSF) Urgent VDRL, Serum Urgent 08/31/18 19:02 Cryptococcus Antigen,CSF Urgent 09/01/18 11:47 Wound Care/Dressings 2-3XW 09/01/18 12:24 ATR .Routine 09/02/18 11:12 Acetaminophen [Ofirmev] 650 mg in 65 ml IV Q6HP HYDROmorphone [Dilaudid] 0.5 mg IV Q2HP PRN Metoprolol Tartrate [Lopressor] 5 mg IV Q4HP PRN Naloxone HCl [Narcan] 0.1 mg IV Q2MIN PRN Nitroglycerin [Nitrostat] 0.4 mg SL Q5M PRN Ondansetron [Zofran] 4 mg IV Q4-6HP PRN Vancomycin Per Pharmacy 1 order IV UD 09/02/18 11:23 Nebulizer management .Routine 09/02/18 12:00 Piperacillin Sodium/Tazobactam [Zosyn] 2.25 gm Dextrose 5% in Water 50 ml IV Q6H 09/02/18 13:00 Ipratropium/Albuterol [Duoneb] 3 ml NEB Q6HRT 09/02/18 14:00 0.9 % Sodium Chloride [Saline Flush] 10 ml IV Q8 09/02/18 15:00 Gabapentin [Neurontin] 600 mg PO TID 09/02/18 15:02 SCD [Anti-Embolism Devices] DAILY 09/02/18 15:11 hydrALAZINE [Apresoline] See Dose Instructions IV Q4-6HP PRN 09/02/18 15:14 Dextrose 5%-1/2Ns W/20Meq KCl 1,000 ml IV 50 mls/hr 09/02/18 21:00 risperiDONE [RisperDAL] 0.5 mg PO BID 09/02/18 22:15 Norepinephrine Bitartrate [Levophed] 16 mg 0.9 % Sodium Chloride [Sodium Chloride 0.9%] 234 ml IV Q24HP 09/03/18 04:00 Complete Blood Count DAILY Inpatient Panel DAILY Procalcitonin Routine Prothrombin Time INR DAILY 09/03/18 07:30 Omeprazole [PriLOSEC] 20 mg PO QAMAC 09/03/18 09:00 Allopurinol [Zyloprim] 200 mg PO DAILY Finasteride [Proscar] 5 mg PO DAILY Thiamine [Vitamin B1] 100 mg 0.9 % Sodium Chloride [Sodium Chloride 0.9%] 50 ml IV DAILY Vancomycin 1,000 mg 0.9 % Sodium Chloride [Sodium Chloride 0.9%] 250 ml IV DAILY 09/04/18 04:00 Complete Blood Count DAILY Inpatient Panel DAILY Prothrombin Time INR DAILY 09/04/18 08:00 Vancomycin,Trough Stat 09/05/18 04:00 Complete Blood Count DAILY Inpatient Panel DAILY Prothrombin Time INR DAILY 09/06/18 04:00 Complete Blood Count DAILY Inpatient Panel DAILY Prothrombin Time INR DAILY Transfer Discharge Sum: A/P - Plan Disposition: Xfer [facility] Quality Measure Queries - VTE Deep Vein Thrombosis/Pulmonary Embolism Present on Admission: No
--- NOTE | 2018-09-02 18:07 | Infectious Disease Prog Note ---
Subjective Patient information: Note initiated : 09/02/18 at 5:57 pm Service Date, if different from initiated Date: [] Patient: Silvio Wallace 88 y/o M admitted on 08/30/18 for Fever, Hypoxia. Chief Complaint: [] Interval history: Pt partially confused. Following some of the verbal commands. I also think that he is hard of hearing. Intermittent fevers today and yesterday although the Tmax is lower. No n/v, diarrhea per nursing. Still has tachycardia and tachypnea. Pt had about 75% breakfast per [place] (RN). Objective Objective Narrative: confused alert, oriented to self no thrush chest has bibasilar crackles s1 s2 normal bs ++, firm abd no edema - Vital Signs Vital signs: Vital Signs Temp Pulse Pulse Resp BP Pulse Ox 09/02/18 16:41 39.1 C H 09/02/18 16:01 38.6 C H 20 133/87 94 09/02/18 12:25 38.7 C H 09/02/18 12:01 38.7 C H 20 147/90 95 09/02/18 11:52 120 H 20 09/02/18 11:40 38.6 C H 09/02/18 11:26 38.5 C H 22 169/100 94 09/02/18 09:00 97 09/02/18 08:01 37.2 C 16 125/75 97 09/02/18 07:01 37.4 C H 17 111/71 99 09/02/18 06:02 37.7 C H 15 120/73 97 09/02/18 05:06 38.0 C H 23 H 98 09/02/18 05:04 22 100 09/02/18 05:01 38.1 C H 21 121/96 98 09/02/18 04:19 38.3 C H 09/02/18 04:01 38.3 C H 22 137/69 100 09/02/18 03:34 38.2 C H 09/02/18 03:32 38.2 C H 20 100 09/02/18 03:00 38.0 C H 19 125/71 100 09/02/18 02:00 37.7 C H 89 20 118/73 99 09/02/18 01:01 37.4 C H 19 130/68 98 05/02/19 00:48 37.4 C H 21 109/65 98 09/02/18 00:01 37.4 C H 19 109/90 97 09/01/18 23:01 37.5 C H 17 129/72 95 09/01/18 22:02 37.8 C H 21 108/92 100 09/01/18 21:51 37.9 C H 09/01/18 21:07 38.0 C H 09/01/18 21:02 38.0 C H 21 127/56 99 09/01/18 20:02 37.9 C H 22 125/65 100 09/01/18 19:20 96 09/01/18 19:02 37.9 C H 24 H 130/80 96 09/01/18 18:01 38.0 C H 19 143/80 97 Intake and Output 09/02/18 09/02/18 09/02/18 05:59 13:59 21:59 Intake Total 1115 826 65 Output Total 471 480 170 Balance 644 346 -105 Intake: IV 1115 466 65 Zosyn 2.25 gm In Dextrose 5% in 50 100 Water 50 ml @ 100 mls/hr IV Q6H [facility] Rx#:[id number] Vancomycin 1,000 mg In Sodium 250 Chloride 0.9% 250 ml @ 250 mls/ hr IV DAILY [facility] Rx#:[id number] Oral 360 Output: Urine Catheter Amount 471 480 170 Other: Meal Lunch Percent of Meal Consumed 95 Feeding Ability Total Assistance Urine Appearance Sediment Clear Temp-Probe Bynum Clear Clear Urine Color Dark Yellow Bright Yellow Temp-Probe Bynum Dark Yellow Bright Yellow Urine Odor Normal Intake & Output: Intake & Output 09/02/18 09/02/18 09/02/18 05:59 13:59 21:59 Intake Total 1115 826 65 Output Total 471 480 170 Balance 644 346 -105 Intake: IV 1115 466 65 Zosyn 2.25 gm In Dextrose 5% in 50 100 Water 50 ml @ 100 mls/hr IV Q6H [facility] Rx#:[id number] Vancomycin 1,000 mg In Sodium 250 Chloride 0.9% 250 ml @ 250 mls/ hr IV DAILY [facility] Rx#:[id number] Oral 360 Output: Urine Catheter Amount 471 480 170 Other: Meal Lunch Percent of Meal Consumed 95 Feeding Ability Total Assistance Urine Appearance Sediment Clear Temp-Probe Bynum Clear Clear Urine Color Dark Yellow Bright Yellow Temp-Probe Bynum Dark Yellow Bright Yellow Urine Odor Normal - Lab 09/02/18 04:00 09/02/18 04:00 Most recent lab results Calcium 9.4 mg/dl (8.6-10.4) 09/02/18 04:00 Phosphorus 3.7 mg/dL (2.7-4.5) 09/02/18 04:00 Magnesium 2.4 mg/dL (1.6-2.5) 09/02/18 04:00 Microbiology 08/31/18 15:14 Blood Blood Culture - Preliminary 08/31/18 15:23 Blood Blood Culture - Preliminary 08/31/18 19:02 Cerebral Spinal Fluid - Cerebral Spinal Fluid Gram Stain - Final 08/31/18 19:02 Cerebral Spinal Fluid - Cerebral Spinal Fluid CSF Culture - Final 08/30/18 12:20 Blood Blood Culture - Preliminary 08/30/18 12:40 Blood Blood Culture - Preliminary 08/30/18 17:23 Leg - Lower Left Gram Stain - Final 08/30/18 17:23 Leg - Lower Left Wound Culture - Final 09/01/18 15:56 Nasopharynx Respiratory Virus Panel (PCR) - Final 09/01/18 15:56 Nasopharynx Respiratory Panel (PCR) - Final 08/30/18 16:16 Abdomen - Lower Gram Stain - Final 08/30/18 16:16 Abdomen - Lower Abscess Culture - Final 08/30/18 17:45 Nose MRSA (PCR) - Final Medications Active Medications: Albuterol/Ipratropium (Duoneb) 3 ml NEB Q6HRT [facility] Last Admin: 09/02/18 11:52 Dose: 3 ml Documented by: SBUNDCorey Allopurinol (Zyloprim) 200 mg PO DAILY [facility] Finasteride (Proscar) 5 mg PO DAILY [facility] Gabapentin (Neurontin) 600 mg PO TID [facility] Last Admin: 09/02/18 15:19 Dose: 600 mg Documented by: UXF Hydralazine HCl (Apresoline) 0 mg IV Q4-6HP PRN PRN Reason: Hypertension Hydromorphone HCl (Dilaudid) 0.5 mg IV Q2HP PRN PRN Reason: PAIN LEVEL > 6 Norepinephrine Bitartrate 16 (mg/ Sodium Chloride) 250 mls @ 9.38 mls/hr IV Q24HP PRN; Protocol PRN Reason: Hypotension Acetaminophen (Ofirmev) 650 mg in 65 mls @ 130 mls/hr IV Q6HP PRN PRN Reason: PAIN/FEVER > 101 Last Infusion: 09/02/18 17:16 Dose: 0 mls/hr Documented by: Admin: 09/02/18 16:41 Dose: 130 mls/hr Documented by: Infusion: 09/02/18 12:10 Dose: 0 mls/hr Documented by: Admin: 09/02/18 11:40 Dose: 130 mls/hr Documented by: UXF Piperacillin Sod/Tazobactam (Sod 2.25 gm/ Dextrose) 50 mls @ 100 mls/hr IV Q6H [facility] Last Admin: 09/02/18 17:17 Dose: 100 mls/hr Documented by: Infusion: 09/02/18 13:14 Dose: 0 mls/hr Documented by: Admin: 09/02/18 12:30 Dose: 100 mls/hr Documented by: UXF Thiamine HCl 100 mg/ Sodium (Chloride) 51 mls @ 50 mls/hr IV DAILY [facility] Stop: 09/03/18 10:02 Vancomycin HCl 1,000 mg/ (Sodium Chloride) 250 mls @ 250 mls/hr IV DAILY [facility] Potassium Chloride/Dextrose/Sod Cl (Dextrose 5%-1/2ns W/20meq Kcl) 1,000 mls @ 50 mls/hr IV .Q20H [facility] Metoprolol Tartrate (Lopressor) 5 mg IV Q4HP PRN PRN Reason: Tachyarrhythmias Naloxone HCl (Narcan) 0.1 mg IV Q2MIN PRN PRN Reason: Opiate Reversal Nitroglycerin (Nitrostat) 0.4 mg SL Q5M PRN PRN Reason: Chest Pain Omeprazole (Prilosec) 20 mg PO QAMAC [facility] Ondansetron HCl (Zofran) 4 mg IV Q4-6HP PRN PRN Reason: Nausea And Vomiting Risperidone (Risperdal) 0.5 mg PO BID [facility] Sodium Chloride (Saline Flush) 10 ml IV Q8 [facility] Last Admin: 09/02/18 15:19 Dose: 10 ml Documented by: Admin: 09/02/18 11:34 Dose: 10 ml Documented by: UXF Vancomycin HCl (Vancomycin Per Pharmacy) 1 order IV UD [facility]; Protocol Assessment and Plan - Narrative A/P Narrative: A: 1. Delirium: - CSF WBC~ 9 with lymphocytic predominance, gram stain negative, TP ~ 104 - low suspicion for bacterial process 2. Sepsis: - Left psoas muscle inflammation with concerns for underlying infection - meets qSOFA screening criteria of 2 (tachypnea, altered mental status). SOFA score: >2 [assuming PaO2/FiO2 ratio to be normal, it is 8) - daily fevers despite antibiotics warrant further work-up (all Cx from blood, CSF, left psoas aspirate neg so far) - 16 S rRNA sequencing results on left psoas aspirate are pending so far 3. High INR with initial trauma to left side of body: sec to Coumadin - INR now therapeutic - Lt Psoas muscle swelling with concerns for underlying hematoma - r/o ongoing bleeding post procedure Recommendations: - Consider Whole body-tagged WBC scan to determine occult source of infection given ongoing fevers despite being on broad-spectrum antibiotics. 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 - Continue IV vancomycin per pharmacy assisted dosing. - Continue IV Zosyn 2.25 gm q6 [based on CrCl per [place] gault formula) - spoke with Micro lab to send the aspirate (Left psoas muscle) Cx for 16S rRNA sequencing Matt Glynn MD Infectious diseases
--- NOTE | 2018-09-02 18:11 | General Surgery Progress Note ---
Subjective Patient reports: other (Patient seen in ICU an dprogress reviewed with Chante BURGESS. Continues to be febrile with negative cultures / scans. Was recommended to have tagged WBC scan for search of occult sepsis focus. Being transferred to [place]. ) Narrative: Note initiated : 09/02/18 at 6:09 pm Service Date, if different from initiated Date: [] Patient: Silvio Wallace 88 y/o M admitted on 08/30/18 for Fever, Hypoxia. Chief Complaint: [] Objective Temp Pulse Resp BP Pulse Ox 102.4 F H 120 H 20 133/87 94 09/02/18 16:41 09/02/18 11:52 09/02/18 16:01 09/02/18 16:01 09/02/18 16:01 Fever 102.4 F Tachycardia / Tachypnea. Epidermal bruises, skin breaks are stable and unchanged. Microbiology cultures ( Negative ) and imaging scans are unremarkable. Patient has h/o dementia and now fever / ?? encephalopathy SensiLase study results for PAD noted. - Additional Data Intake & Output - Last 24 hours: Intake & Output 08/31/18 09/01/18 09/02/18 09/03/18 05:59 05:59 05:59 05:59 Intake Total 2915 3136 3035 891 Output Total 1000 495 0892 650 Balance 1915 9298 1829 241 Weight 211 lb 14.4 oz 215 lb 12.8 oz 220 lb 2 oz - Labs 09/02/18 04:00 09/02/18 04:00 Diabetes panel 09/02/18 Range/Units 04:00 Sodium 146 H (133-145) mmol/L Potassium 4.3 (3.3-5.1) mmol/L Chloride 109 H (96-108) mmol/L Carbon Dioxide 22 (22-30) mmol/L BUN 54 H (8-23) mg/dl Creatinine 2.0 H (0.7-1.2) mg/dl Glucose 99 (70-105) mg/dL Calcium 9.4 (8.6-10.4) mg/dl AST 22 (0-37) U/l ALT 13 (0-40) U/l Alkaline Phosphatase 77 (39-117) U/L Total Protein 6.6 (5.9-8.4) gm/dL Albumin 3.0 L (3.2-5.2) gm/dL Triglycerides 75 (<150) mg/dl Calcium panel 09/02/18 Range/Units 04:00 Calcium 9.4 (8.6-10.4) mg/dl Phosphorus 3.7 (2.7-4.5) mg/dL Albumin 3.0 L (3.2-5.2) gm/dL Pituitary panel 09/02/18 Range/Units 04:00 Sodium 146 H (133-145) mmol/L Potassium 4.3 (3.3-5.1) mmol/L Chloride 109 H (96-108) mmol/L Carbon Dioxide 22 (22-30) mmol/L BUN 54 H (8-23) mg/dl Creatinine 2.0 H (0.7-1.2) mg/dl Glucose 99 (70-105) mg/dL Calcium 9.4 (8.6-10.4) mg/dl Adrenal panel 09/02/18 Range/Units 04:00 Sodium 146 H (133-145) mmol/L Potassium 4.3 (3.3-5.1) mmol/L Chloride 109 H (96-108) mmol/L Carbon Dioxide 22 (22-30) mmol/L BUN 54 H (8-23) mg/dl Creatinine 2.0 H (0.7-1.2) mg/dl Glucose 99 (70-105) mg/dL Calcium 9.4 (8.6-10.4) mg/dl Total Bilirubin 2.2 H (0.0-1.0) mg/dL AST 22 (0-37) U/l ALT 13 (0-40) U/l Alkaline Phosphatase 77 (39-117) U/L Total Protein 6.6 (5.9-8.4) gm/dL Albumin 3.0 L (3.2-5.2) gm/dL Assessment and Plan (1) Skin tear of left lower leg without complication Status: Acute Current Visit: Yes (2) Toe ulcer Status: Chronic Current Visit: Yes (3) Altered mental status Status: Acute Current Visit: Yes (4) Sepsis Status: Acute Current Visit: Yes - Narrative A/P Narrative: Assessment: Fever of unknown origin / Sepsis ?? source. Skin and epidermal lesions are unchanged. Plan: Nothing more to add to current management. Agree with plan for transfer to [facility] For further evaluation and treatment. Will sign off. - Time Spent With Patient Total time spent is greater than 50% in coordination of care (as documented) at patient's floor/unit and/or counseling patient: less than 15 minutes
[2018-09-02] MEDS ORDERED: risperiDONE 0.25 MG TABLET PO SCH (21:00)
[2018-09-02] MEDS ORDERED: NOREPINEPHRINE BITARTRATE 16 MG in 0.9 % SODIUM CHLORIDE 234 ML IV PRN (22:15)
[2018-09-03] MEDS ORDERED: OMEPRAZOLE 20 MG CAPSULE PO SCH (07:30)
[2018-09-03] MEDS ORDERED: THIAMINE 100 MG in 0.9 % SODIUM CHLORIDE 50 ML IV SCH (09:00)
[2018-09-03] MEDS ORDERED: FINASTERIDE 5 MG TABLET PO SCH (09:00)
[2018-09-03] MEDS ORDERED: VANCOMYCIN 1,000 MG in 0.9 % SODIUM CHLORIDE 250 ML IV SCH (09:00)
[2018-09-03] MEDS ORDERED: ALLOPURINOL 100 MG TABLET PO SCH (09:00)
[2018-09-10 07:09] LABS: LCM IGG <1:1; LCM IGM <1:1; Measles IGG AB CSF <1:64; Measles IGM AB CSF <1:1
== END 2018-09-02 18:10 | disposition short-term general hospital (02) | DRG 981 ==
LOC: ED 11:52 → ICU 17:20
PROVIDERS: ADMIT Internal Medicine; ATTEND Internal Medicine